=== PATIENT | female | born 1945 | race Caucasian/White ===

== ENCOUNTER 2022-08-23 09:13 | Outpatient (OUT) | payer MEDICARE, OTHER, SELFPAY ==
[2022-08-23 11:02] LABS: Alanine Aminotransferase 30 U/L (14-59); Aspartate Amino Transferase 24 U/L (15-37); Chol HDL Ratio 2.6; Cholesterol 172 mg/dL (<=200); HDL Cholesterol 66 mg/dL (40-60); Triglycerides 64 mg/dL (<=150); VLDL CHOLESTEROL 12.8 mg/dL
== END 2022-08-23 09:14 | disposition home or self-care (01) ==
LOC: LAB 09:19
PROVIDERS: PCP Internal Medicine; Visit Provider Internal Medicine Cardiovascular Disease
DX: I10 Essential (primary) hypertension (principal); I51.89 Other ill-defined heart diseases; E78.5 Hyperlipidemia, unspecified
CPT/HCPCS: 36415; 80061; 84450; 84460

== ENCOUNTER 2022-10-01 08:40 | Outpatient (OUT) | payer MEDICARE, OTHER, SELFPAY ==
[2022-10-01 09:11] LABS: Basophils Percent Auto 0.4 % (0.2-2.0); Eosinophils Absolute Auto 0.1 10^3/uL (0.0-0.7); Eosinophils Percent Auto 1.8 % (0.9-7.0); Hematocrit 44.4 % (36.0-48.0); Hemoglobin 14.3 g/dL (12.0-16.0); Immature Granulocytes Abs Auto 0.01 10^3/uL (0.00-0.03); Immature Granulocytes Pct Auto 0.2 % (0.0-0.5); Mean Corpuscular HGB Conc 32.2 g/dL (29.9-35.2); Mean Corpuscular Hemoglobin 28.7 pg (26.7-34.0); Mean Platelet Volume 10.7 fL (9.5-13.5); Monocytes Absolute Auto 0.3 10^3/uL (0.3-0.8); Monocytes Percent Auto 6.3 % (1.7-12.0); Neutrophils Absolute Auto 3.5 10^3/uL (1.4-6.5); Neutrophils Percent Auto 71.3 % (43.0-75.0); Platelet Count 181 10^3/uL (150-450); Red Blood Count 4.99 10^6/uL (4.20-5.40); Red Cell Distribution Width 13.2 % (11.0-15.0)
[2022-10-01 11:08] LABS: Alanine Aminotransferase 31 U/L (14-59); Albumin Globulin Ratio 1.3; Albumin Level 4.2 g/dL (3.4-5.0); Alkaline Phosphatase 79 U/L (46-116); Anion Gap 11.9; Aspartate Amino Transferase 20 U/L (15-37); BUN Creatinine Ratio 24.4; Bilirubin Total 0.4 mg/dL (0.2-1.0); Calcium 9.7 mg/dL (8.5-10.1); Carbon Dioxide 29.3 mmol/L (21.0-32.0); Chloride 105 mmol/L (98-107); Chol HDL Ratio 2.6; Cholesterol 178 mg/dL (<=200); Estimated GFR (African America >60 (>=60); Estimated GFR (Non-African Ame >60 (>=60); Globulin 3.3 g/dL; Glucose 98 mg/dL (74-106); HDL Cholesterol 68 mg/dL (40-60); Potassium 4.2 mmol/L (3.5-5.1); Sodium 142 mmol/L (136-145); Thyroid Stimulating Hormone 1.243 uIU/mL (0.358-3.740); Total Protein 7.5 g/dL (6.4-8.2); Triglycerides 79 mg/dL (<=150); VLDL CHOLESTEROL 15.8 mg/dL
== END 2022-10-01 08:41 | disposition home or self-care (01) ==
PROVIDERS: PCP Internal Medicine; Visit Provider Internal Medicine
DX: I25.10 Atherosclerotic heart disease of native coronary artery without angina pectoris (principal); Z95.5 Presence of coronary angioplasty implant and graft; I10 Essential (primary) hypertension; E78.5 Hyperlipidemia, unspecified; I69.30 Unspecified sequelae of cerebral infarction
CPT/HCPCS: 36415; 80053; 80061; 84443; 85025

== ENCOUNTER 2023-04-05 09:23 | Outpatient (OUT) | payer MEDICARE, OTHER, SELFPAY ==
[2023-04-05 10:12] LABS: Basophils Percent Auto 0.7 % (0.2-2.0); Eosinophils Absolute Auto 0.1 10^3/uL (0.0-0.7); Hematocrit 46.1 % (36.0-48.0); Hemoglobin 14.6 g/dL (12.0-16.0); Immature Granulocytes Abs Auto 0.02 10^3/uL (0.00-0.03); Immature Granulocytes Pct Auto 0.3 % (0.0-0.5); Lymphocytes Percent Auto 16.5 % (20.5-60.0); Mean Corpuscular HGB Conc 31.7 g/dL (29.9-35.2); Mean Corpuscular Hemoglobin 28.7 pg (26.7-34.0); Mean Corpuscular Volume 90.6 fL (81.0-99.0); Monocytes Absolute Auto 0.4 10^3/uL (0.3-0.8); Monocytes Percent Auto 6.4 % (1.7-12.0); Neutrophils Absolute Auto 4.4 10^3/uL (1.4-6.5); Neutrophils Percent Auto 74.1 % (43.0-75.0); Platelet Count 191 10^3/uL (150-450); Red Blood Count 5.09 10^6/uL (4.20-5.40); Red Cell Distribution Width 13.3 % (11.0-15.0)
[2023-04-05 10:37] LABS: Creatinine Urine Random 122.25 mg/dL (20.00-300.00); Microalbum Creatinine Ratio Ur 25.3 mg/g (0.0-29.9); Microalbumin Urine Random 3.1 mg/dL (<=30.0)
[2023-04-05 10:55] LABS: Alanine Aminotransferase 30 U/L (14-59); Albumin Globulin Ratio 1.1; Albumin Level 4.1 g/dL (3.4-5.0); Alkaline Phosphatase 83 U/L (46-116); Anion Gap 8.2; Aspartate Amino Transferase 21 U/L (15-37); BUN Creatinine Ratio 22.5; Bilirubin Total 0.5 mg/dL (0.2-1.0); Carbon Dioxide 31.5 mmol/L (21.0-32.0); Chloride 102 mmol/L (98-107); Chol HDL Ratio 2.4; Cholesterol 179 mg/dL (<=200); Estimated GFR (African America >60 (>=60); Estimated GFR (Non-African Ame >60 (>=60); Globulin 3.7 g/dL; Glucose 93 mg/dL (74-106); HDL Cholesterol 74 mg/dL (40-60); Potassium 3.7 mmol/L (3.5-5.1); Sodium 138 mmol/L (136-145); Total Protein 7.8 g/dL (6.4-8.2); Triglycerides 94 mg/dL (<=150); VLDL CHOLESTEROL 18.8 mg/dL
== END 2023-04-05 09:24 | disposition home or self-care (01) ==
LOC: LAB 09:25
PROVIDERS: PCP Internal Medicine; Visit Provider Nurse Practitioner Adult Health
DX: I10 Essential (primary) hypertension (principal); E78.2 Mixed hyperlipidemia; Z51.81 Encounter for therapeutic drug level monitoring
CPT/HCPCS: 36415; 80053; 80061; 82043; 82570; 85025

== ENCOUNTER 2023-10-05 09:08 | Outpatient (OUT) | payer MEDICARE, OTHER, SELFPAY ==
[2023-10-05 09:47] LABS: Microalbum Creatinine Ratio Ur 9.2 mg/g (0.0-29.9); Microalbumin Urine Random 1.3 mg/dL (<=30.0)
[2023-10-05 10:02] LABS: Alanine Aminotransferase 36 U/L (14-59); Albumin Globulin Ratio 1.3; Alkaline Phosphatase 77 U/L (46-116); Anion Gap 11.1; Aspartate Amino Transferase 27 U/L (15-37); BUN Creatinine Ratio 22.5; Bilirubin Total 0.6 mg/dL (0.2-1.0); Calcium 10.2 mg/dL (8.5-10.1); Carbon Dioxide 31.2 mmol/L (21.0-32.0); Chloride 105 mmol/L (98-107); Chol HDL Ratio 2.4; Cholesterol 172 mg/dL (<=200); Estimated GFR (African America >60 (>=60); Estimated GFR (Non-African Ame >60 (>=60); Globulin 3.1 g/dL; Glucose 95 mg/dL (74-106); HDL Cholesterol 73 mg/dL (40-60); Potassium 4.3 mmol/L (3.5-5.1); Sodium 143 mmol/L (136-145); Thyroid Stimulating Hormone 0.959 uIU/mL (0.358-3.740); Total Protein 7.1 g/dL (6.4-8.2); Triglycerides 59 mg/dL (<=150); VLDL CHOLESTEROL 11.8 mg/dL
== END 2023-10-05 09:09 | disposition home or self-care (01) ==
LOC: LAB 09:10
PROVIDERS: PCP Internal Medicine; Visit Provider Nurse Practitioner Adult Health
DX: E78.2 Mixed hyperlipidemia (principal); I10 Essential (primary) hypertension; Z79.899 Other long term (current) drug therapy
CPT/HCPCS: 36415; 80053; 80061; 82043; 82570; 84443

== ENCOUNTER 2024-02-05 15:04 | Emergency (ER) | payer MEDICARE, OTHER, SELFPAY ==
[2024-02-05 15:12] VITALS: BP 179/98; PULSE 99; O2SAT 97; BMI 19.8
--- NOTE | 2024-02-05 15:20 | XR_ITS ---
The [address] [address] Patient Name: HETAL BOGGS MRN: [id number] date: 1945 Sex: F Assigned Patient Location: ED.MAIN Current Patient Location: Accession/Order Number: [id number] Exam Date: 02/05/2024 16:00 Report Date: 02/05/2024 17:56 At the request of: MISAEL COOK Procedure: XR chest 1V EXAM: XR chest 1V at 1553 hours HISTORY: cough COMPARISON: None. TECHNIQUE: AP upright portable chest x-ray FINDINGS: The heart is not enlarged and the vasculature is not distended. No acute infiltrate, effusion or pneumothorax is identified. The osseous structures are grossly intact. XR/XR chest 1V IMPRESSION: No acute infiltrate or evidence of cardiac decompensation. Electronically authenticated by: FREDDIE REDD Date: 02/05/2024 17:56
[2024-02-05 15:38] LABS: Influenza Virus A Antigen Negative; Influenza Virus B Antigen Negative; Internal Control Within Normal Limits
[2024-02-05 15:39] LABS: Internal Control Within Normal Limits; SARS-CoV-2 Ag NEGATIVE (NEGATIVE)
--- NOTE | 2024-02-05 15:44 | ED.URI1 ---
HPI - URI/Sore Throat General Chief Complaint: Upper Respiratory Infection Stated Complaint: Upper Respiratory Infection Time Seen by Provider: 02/05/24 15:29 Source: patient Limitations: no limitations History of Present Illness HPI Narrative: 78-year-old female presents for a 5-day history of a cough. It has been mostly nonproductive. She has not had fever or hemoptysis. She feels mildly short of breath as well. Related Data Previous Rx's ?Medication ?Instructions ?Recorded azithromycin 250 mg tablet See Rx Instructions PO .COMPLEX #6 02/05/24 (Zithromax Z-Alen) tabs benzonatate 100 mg capsule 100 mg PO TID PRN cough #20 caps 02/05/24 Allergies Allergy/AdvReac Type Severity Reaction Status Date / Time iodine Allergy Severe Rash Verified 02/05/24 15:17 Review of Systems ROS Narrative A ten point review of systems is negative except as noted above. PFSH PFSH Social History Little interest or pleasure in doing things: not at all Feeling down, depressed, or hopeless: not at all Exam Narrative Exam Narrative: Nurses note and vital signs reviewed and patient is not hypoxic. General: The patient appears in no apparent distress. Patient is resting comfortably on cart. Skin: Warm, dry, no pallor noted. There is no rash noted. Head: Normocephalic, atraumatic Eye: Normal conjunctiva, no drainage Ears, Nose, Mouth, and Throat: oral mucosa is moist. Nares patent. Cardiovascular: Regular Rate and Rhythm Respiratory: Patient is in no distress, no accessory muscle use, lungs are clear to auscultation, no wheezing, rales or rhonchi. Good air movement present. Back: non-tender GI: Soft and nontender Musculoskeletal: The patient has no evidence of calf tenderness, no pitting edema, symmetrical pulses noted bilaterally Neurological: A&O normal speech Psychiatric: Cooperative Constitutional Vital Signs, click to edit/add: Last Vital Signs Pulse 99 H 02/05/24 15:12 Resp 20 02/05/24 15:12 BP 179/98 H 02/05/24 15:12 Pulse Ox 97 02/05/24 15:12 O2 Del Method Room Air 02/05/24 15:12 Course Vital Signs Vital signs: Vital Signs Pulse Rate 99 H 02/05/24 15:12 Respiratory Rate 20 02/05/24 15:12 Blood Pressure 179/98 H 02/05/24 15:12 Pulse Oximetry 97 02/05/24 15:12 Oxygen Delivery Method Room Air 02/05/24 15:12 Pulse Rate 99 H 02/05/24 15:12 Respiratory Rate 20 02/05/24 15:12 Blood Pressure 179/98 H 02/05/24 15:12 Pulse Oximetry 97 02/05/24 15:12 Oxygen Delivery Method Room Air 02/05/24 15:12 MDM - URI/Sore Throat MDM Narrative Medical decision making narrative: COVID, influenza, and chest x-ray are negative. She is treated with Zithromax and Tessalon. Treatment diagnosis and follow-up were discussed with the patient. Differential Diagnosis Differential diagnosis: Likely upper respiratory infection, viral infection, influenza and other (COVID, pneumonia) Lab Data Attestation: I reviewed the patient's lab results. Labs: Lab Results 02/05/24 Range/Units 15:22 Influenza Type A Ag Negative Influenza Type B Ag Negative SARS-CoV-2 Ag (CV2AG) Negative (NEGATIVE) Imaging Data Chest x-ray: My impression: No infiltrates Discharge Plan Discharge Chief Complaint: Upper Respiratory Infection Clinical Impression: Upper respiratory infection Patient Disposition: Home, Self-Care Time of Disposition Decision: 16:45 Condition: Good Mode of Transportation: Private Vehicle Prescriptions / Home Meds: New azithromycin [Zithromax Z-Alen] 250 mg tablet See Rx Instructions .ROUTE .COMPLEX Qty: 6 0RF Rx Instructions: For 250 mg dose pack: take 500 mg today (day 1), then 250 mg for 4 days (days 2-5) benzonatate 100 mg capsule 100 mg PO TID PRN (Reason: cough) Qty: 20 0RF Print Language: Mozambican Instructions: Upper Respiratory Infection (ED) Referrals: AMIE LOCKETT [Primary Care Provider] - 1 week
== END 2024-02-05 17:01 | disposition home or self-care (01) ==
PROVIDERS: Emergency Provider Emergency Medicine; PCP Internal Medicine
DX: J06.9 Acute upper respiratory infection, unspecified (principal); R06.02 Shortness of breath
CPT/HCPCS: 71045; 87804; 87811; 99285

== ENCOUNTER 2024-04-13 08:59 | Outpatient (OUT) | payer MEDICARE, OTHER, SELFPAY ==
--- OUTSIDE RECORDS SUMMARY | 2024-04-13 09:12 | XMS_ITS | CCD ---
Author Organization [facility] Care Team Providers Care Semiconductor Development Technician Name Role Phone Steffi Gomez Unavailable Ricky Kaveh Unavailable DO Dipak Lockett Primary Care Provider DO Dipak Lockett Attending Provider DO Alaina Mcghee Referring Provider Dipak Lockett Unavailable Unavailable Unavailable DO Dipak Lockett Primary Care Provider DO Dipak Lockett Attending Provider DO Alaina Mcghee Referring Provider [phone] MD Arsenio Petty Attending Provider Dipak Lockett Primary Care Unavailable Kailash, Arsenio Admitting Unavailable Arsenio Petty Attending Unavailable Alaina Mcghee Referring Unavailable Dipak Lockett Primary Care Unavailable Dipak Lockett Attending Unavailable Dipak Lockett Admitting Unavailable Dipak Lockett Primary Care Unavailable Petty, Cesar Admitting Unavailable PettyArsenio Attending Unavailable Alaina Mcghee Referring Unavailable Dipak Lockett Admitting Unavailable Dipak Lockett Primary Care Unavailable Dipak Lockett Attending Unavailable Dr. Dipak Lockett Primary Care Dallin Bustamante Attending Unavailable Dr. Dipak Lockett Primary Care Arsenio Deal Attending Unavailable Kailash, Arsenio Referring Unavailable Dallin Mcghee Attending Unavailable Dr. Dipak Lockett Primary Care Dr. Dipak Morse Primary Care Kevin Lockett Dr. Dipak Blayne Primary Care Arsenio Deal Attending Unavailable Levy, Dr. Dipak Cisneros Primary Care Dallin Bustamante Attending Unavailable [facility], DR BLOCK Primary Care Unavailable LEVY, DR HOLLOWAY Attending Unavailable LEVY, DR HOLLOWAY Consulting Unavailable LEVY, DR HOLLOWAY Admitting Unavailable Dipak Lockett DO Primary Care Provider [phone] Dipak Lockett DO Unavailable Dipak Lockett DO Primary Care Provider Arsenio Petty MD Unavailable ARSENIO PETTY Attending Unavailable DIPAK LOCKETT Primary Care Unavailable ARSENIO PETTY Attending Unavailable ARSENIO PETTY Referring Unavailable DIPAK LOCKETT Primary Care Unavailable ARSENIO PETTY Referring Unavailable DIPAK LOCKETT Primary Care Unavailable ARSENIO PETTY Attending Unavailable ARSENIO PETTY Attending Unavailable ARSENIO PETTY Referring Unavailable DIPAK LOCKETT Primary Care Unavailable DIPAK LOCKETT Attending Unavailable DIPAK LOCKETT Referring Unavailable MORRO CROOK Attending Unavailable MORRO CROOK Referring Unavailable Allergies Allergy Classification Reported Allergen(s) Allergy Type Date of Onset Reaction(s) Facility (3 sources) Contrast media Propensity to adverse reactions [facility] [employer] Other (3 sources) Sulfamethoxazole / Trimethoprim Drug Allergy [facility] [employer] [facility] Other (7 sources) Iodine; Translations: [iodine] Drug Allergy 05-22-[address] [facility] (12 sources) Iodinated Contrast Media; Translations: [Iodinated Contrast Media] Allergy to substance 05-22-19 [facility] (3 sources) Iodine; Translations: [Iodine Tincture SWAB] Drug Allergy [facility] 250 DO Work Phone: (1 source) Iodine and Iodide Containing Products Drug allergy (disorder) [facility] (5 sources) Povidone-Iodine; Translations: [POVIDONE-IODINE] Drug Allergy 02-02-20 Unknown [facility] (3 sources) atorvastatin Drug Allergy 09-28-19 [facility] (3 sources) Simvastatin Allergy to substance 09-28-19 [facility] Medications Current Medications Medication Drug Class(es) Dates Sig (Normalized) Sig (Original) aspirin 81 mg oral tablet (12 sources) Platelet Aggregation Inhibitor, Nonsteroidal Anti-inflammatory Drug Start: 06-04-2022 take 81 mg by mouth once daily Aspirin Active 81 MG PO Daily June 04, 2022 12:00am take 1 tablet by mouth once salud y aspirin 81 mg EC tablet Take 1 tablet (81 mg) by mouth once daily. Active azithromycin 250 mg oral tablet (1 source) Macrolide Antimicrobial Start: 01-14-2021 Calcium Carbonate (6 sources) take 2 tablets by mouth every twenty-four hours Tums 500 MG 2 tablets Orally Once a day PRN Not-Taking Caltrate 600 150 0 (600 Ca) MG as directed Orally Active take 2 tablets by mo uth every twenty-four hours calcium carbonate 1500 mg / cholecalciferol 800 unt chewable tablet (2 sources) Vitamin D Start: 06-04-2022 take 1 tablet by mouth twice daily Calcium Carbonate-Vitamin D3 (Caltrate 600 Plus D) 600 mg-20 mcg (800 unit) Tablet,Chewable Active 1 TAB PO Twice daily June 04, 2022 12:00am Calcium Carbonate / Vitamin D (3 sources) Calcium Carbonate-Vitamin D (CALTRATE 600+D PO) Daily. 0 Active Calcium Carbonate / vitamin D3 (4 sources) take 1 tablet by mouth once in the morning calcium carbonate/vitamin D3 (CALTRATE 600 PLUS D ORAL) Take 1 tablet by mouth early in the morning.. Active take 1 tablet by franky once in the morning calcium carbonate/vitamin D3 (CALTRATE 6 00 PLUS D ORAL) Take 1 tablet by mouth early in the morning.. 0 Active diphenhydrAMINE hydrochloride 25 mg oral capsule (4 sources) Histamine-1 Receptor Antagonist Start: 05-25-2022 take 1 capsule by mouth three times daily Diphenhydramine Hcl (Allergy (Diphenhydramine)) 25 mg capsule Active 25 MG PO Three times daily June 04, 2022 12:00am docosahexaenoic acid 120 mg / eicosapentaenoic acid 180 mg oral capsule (6 sources) take 1 capsule by mouth in the morning omega-3 (Fish Oil) 1000 MG capsule Take 1 capsule by mouth in the morning. 0 Active famotidine 20 mg oral tablet (4 sources) Histamine-2 Receptor Antagonist Start: 06-04-2022 take 20 mg by mouth once daily in the morning Famotidine Active 20 MG PO Every morning June 04, 2022 12:00am Start: 05-25-2022 take 1 tablet by franky th twice daily Famotidine 20 MG Oral Tablet one tablet twice daily for 2 days and the last dose the morning of the procedure Quantity: 5 Refills: 0 Ordered: 25-May-2022 Arsenio Petty MD Start : 25-May-2022 Active Fish Oils (3 sources) take 1 capsule by mo uth twice daily Fish Oil 500 MG 1 capsule Orally Twice a day Active losartan potassium 50 mg oral tablet (15 sources) Angiotensin 2 Receptor Surendra Start: 08-23-2023 End: 08-22-2024 take 1 tablet by mouth twice daily losartan (Cozaar) 50 mg tablet Indications: Atherosclerotic heart disease of [place] coronary artery without angina pectoris Take 1 tablet (50 mg) by mouth 2 times a day. 180 tablet 3 08/23/2023 08/22/2024 Active Start: 08-19-2023 End: 08-23-2023 take 1 tablet by mouth once daily losartan (Cozaar) 50 mg tablet Indications: Atherosclerotic heart disease of [place] coronary artery without angina pectoris TAKE 1 TABLET BY MOUTH EVERY DAY 90 tablet 3 08/19/2023 08/23/2023 Discontinued (Reorder) Start: 05-27-2022 losartan (Coza ar) 50 MG tablet Take by mouth Daily. 0 05/27/2022 Active Start: 04-14-2021 take 1 tablet by franky th every twenty-four hours Losartan Potassium 25 MG 1 tablet Orally Once a day for 30 day(s) Mar, Active 24 hr metoprolol succinate 25 mg extended release oral tablet (15 sources) beta-Adrenergic Surendra Start: 08-18-2023 End: 08-17-2024 take 1 tablet by mouth once daily metoprolol succinate XL (Toprol-XL) 25 mg 24 hr tablet Indications: Essential hypertension, benign Take 1 tablet (25 mg) by mouth once daily. Do not crush or chew. 90 tablet 3 08/18/2023 08/17/2024 Active Start: 07-22-2023 End: 08-18-2023 take 2 tablets by mouth once daily metoprolol succinate XL (Toprol-XL) 25 mg 24 hr tablet Indications: Abnormal result of other cardiovascular function study Take 2 tablets (50 mg) by mouth once daily. 180 tablet 3 07/22/2023 08/18/2023 Discontinued (Dose adjustment) Start: 05-25-2022 End: 08-18-2023 take 50 mg by mouth once daily in the morning Metoprolol Succinate Active 50 MG PO Every morning June 04, 2022 12:00am Start: 05-25-2022 End: 02-02-2023 take 1 tablet by mouth once daily Metoprolol Succinate ER 25 MG Oral Tablet Extended Release 24 Hour take 1 tablet by mouth once daily Quantity: 90 Refills: 3 Ordered: 23-Jul-2022 Arsenio Petty MD Start : 25-May-2022 Active dose decreased Multiple Vitamin (3 sources) take 1 tablet by franky th once daily Multiple Vitamin 1 tablet Orally Once a day Active MULTIPLE VITAMIN PO (3 sources) MULTIPLE VITAMIN PO Daily. 0 Active Multivitamin preparation (2 sources) Start: 06-04-2022 take 1 tablet by mouth once daily Multivitamin Active 1 TAB PO Daily June 04, 2022 12:00am multivitamin tablet (4 sources) take 1 tablet by mouth once daily multivitamin tablet Take 1 tablet by mouth once daily. Active take 1 tablet by mouth once salud y multivitamin tablet Take 1 tablet by mouth once daily. 0 Active naproxen sodium 220 mg oral tablet (3 sources) Nonsteroidal Anti-inflammatory Drug take 1 tablet by mouth every twelve hours as needed Aleve 220 MG 1 tablet Orally Every 12 hrs as needed PRN Active nitroglycerin 0.4 mg sublingual tablet (9 sources) Nitrate Vasodilator Start: 023 Nitroglycerin Active 0.4 MG SUBLINGUAL Q5M June 08, 2022 12:00am do not exceed 3 doses per episode Nitroglycerin 0. 4 MG Sublingual Tablet Sublingual TAKE DIRECTED. Quantity: 25 Refills: 11 Ordered: 23-Jul-2022 DO Active olopatadine 2 mg/ml ophthalmic solution (1 source) Histamine-1 Receptor Inhibitor Start: 01-14-2021 [place] 6-Spb-Kig-Fish Oil (Fish Oil) 1,000 mg (120 mg-180 mg) Capsule (2 sources) Start: 06-04-2022 take 1 capsule by mouth once daily [place] 6-Ino-Trt-Fish Oil (Fish Oil) 1,000 mg (120 mg-180 mg) Capsule Active 1 CAP PO Daily June 04, 2022 12:00am omega 6-tqh-lzx-fish oil (Fish OiL) 1,000 mg (120 mg-180 mg) capsule (4 sources) take 1 capsule by mouth in the morning omega 1-gke-wmw-fish oil (Fish OiL) 1,000 mg (120 mg-180 mg) capsule Take 1 capsule (1,000 mg) by mouth early in the morning.. Active take 1 capsule by mouth in the m orning omega 0-vin-mdz-fish oil (Fish OiL) 1,000 mg (120 mg-180 mg) capsule Take 1 capsule (1,000 mg) by mouth early in the morning.. 0 Active predniSONE 20 mg oral tablet (5 sources) Start: 06-04-2022 take 20 mg by mouth once daily in the morning Prednisone Active 20 MG PO Every morning June 04, 2022 12:00am Start: 05-25-2022 predniSONE 20 MG Oral Tablet one tablet three times daily for 2 days and then the morning of the procedure. Quantity: 7 Refills: 0 Ordered: 25-May-2022 Arsenio Petty MD Start : 25-May-2022 Active Start: 01-14-2021 take 1 tablet by franky th every twelve hours rosuvastatin calcium 40 mg oral tablet (12 sources) HMG-CoA Reductase Inhibitor Start: 03-31-2023 take 1 tablet by mouth at bedtime rosuvastatin (Crestor) 40 MG tablet Indications: Mixed hyperlipidemia (CMS/HCC) TAKE 1 TABLET BY MOUTH AT BEDTIME 90 tablet 3 03/31/2023 Active Start: 06-04-2022 take 20 mg by mouth once daily in the morning Rosuvastatin Active 20 MG PO Every morning June 04, 2022 12:00am ticagrelor 60 mg oral tablet (9 sources) Start: 07-29-2023 End: 07-28-2024 take 1 tablet by mouth twice daily ticagrelor (Brilinta) 60 mg tablet Indications: S/P PTCA (percutaneous transluminal coronary angioplasty) Take 1 tablet (60 mg) by mouth 2 times a day. 180 tablet 3 07/29/2023 07/28/2024 Active Start: 06-08-2022 take 1 tablet by franky th twice daily Ticagrelor (Brilinta) 90 mg tablet Active 90 MG PO Twice daily 180 90 June 08, 2022 12:00am Completed/Discontinued Medications Medication Drug Class(es) Dates Sig (Normalized) Sig (Original) atorvastatin 10 mg oral tablet (3 sources) HMG-CoA Reductase Inhibitor take 1 tablet by mouth every twenty-four hours Atorvastatin Calcium 10 MG 1 tablet Orally Once a day for 90 day(s) Not-Taking Caltrate 600 Plus-Vit D TABS (3 sources) Caltrate 600 Plus-Vit D TABS TAKE 1 TABLET DAILY DIRECTED. Quantity: 0 Refills: 0 Ordered: 25-May-2022 DO Active diclofenac sodium 0.01 mg/mg topical gel (3 sources) Nonsteroidal Anti-inflammatory Drug Diclofenac Sodium 1 % 2 pumps to affected area Transdermal Twice a day for 30 day(s) Not-Taking Multi Vitamin Oral Tablet (3 sources) take 1 tablet by franky th once daily Multi Vitamin Oral Tablet TAKE 1 TABLET DAILY. Quantity: 0 Refills: 0 Ordered: 25-May-2022 DO Active Problems Active Problems Problem Classification Problem Date Documented Da te Episodic/Chronic Acute cerebrovascular disease (6 sources) Cerebral infarction, unspecified; Translations: [Cerebrovascular accident] Onset: 07-01-2022 09-21-2022 Chronic Coronary atherosclerosis and other heart disease (20 sources) Coronary arteriosclerosis; Translations: [Atherosclerotic heart disease of [place] coronary artery without angina pectoris] Onset: 05-21-2022 Resolved: 10-04-2022 06-08-2022 Chronic Disorders of lipid metabolism (20 sources) Mixed hyperlipidemia; Translations: [Mixed hyperlipidemia] Onset: 07-01-2022 06-08-2022 Chronic Essential hypertension (20 sources) Essential hypertension; Translations: [Essential (primary) hypertension] Onset: 04-14-2021 Resolved: 04-14-2021 Chronic Late effects of cerebrovascular disease (5 sources) Sequela of lacunar stroke; Translations: [Unspecified sequelae of cerebral infarction] Onset: 09-30-2022 09-30-2022 Chronic Menopausal disorders (3 sources) Menopausal and postmenopausal disorders; Translations: [Unspecified menopausal and perimenopausal disorder] Chronic Nonmalignant breast conditions (3 sources) Fibrocystic disease of breast; Translations: [Diffuse cystic mastopathy of unspecified breast] Onset: 09-30-2022 09-30-2022 Chronic Other aftercare (2 sources) Patient encounter status; Translations: [Other watermaster (current) drug therapy] 04-13-2023 Episodic Other and ill-defined heart disease (7 sources) Heart disease; Translations: [Other ill-defined heart diseases] Onset: 02-01-2023 02-01-2023 Chronic Other hereditary and degenerative nervous system conditions (5 sources) Cerebral atrophy; Translations: [Degenerative disease of nervous system, unspecified] Onset: 09-21-2022 09-21-2022 Chronic Other nervous system disorders (3 sources) Carpal tunnel syndrome; Translations: [Carpal tunnel syndrome, left upper limb] Chronic Residual codes; unclassified (2 sources) Body mass index (BMI) 21.0-21.9, adult; Translations: [Body mass index (BMI) 21.0-21.9, adult] Onset: 08-18-2023 Episodic Residual codes; unclassified (2 sources) Other specified health status; Translations: [Other specified health status] Onset: 08-18-2023 Episodic Unclassified (1 source) Encounter for preprocedural laboratory examination; Translations: [Encounter for preprocedural laboratory examination] Onset: 06-04-2022 Past or Other Problems Problem Classification Problem Date Documented Da te Episodic/Chronic Blindness and vision defects (1 source) Unspecified visual disturbance Onset: 04-14-2021 Resolved: 04-14-2021 Episodic Coronary atherosclerosis and other heart disease (14 sources) Patient post percutaneous transluminal coronary angioplasty; Translations: [Percutaneous transluminal coronary angioplasty status] Onset: 09-21-2022 02-02-2023 Episodic Immunizations and screening for infectious disease (1 source) Contact with and (suspected) exposure to other viral communicable diseases Onset: 01-14-2021 Resolved: 01-14-2021 Episodic Inflammation; infection of eye (except that caused by tuberculosis or sexually transmitteddisease) (1 source) Acute atopic conjunctivitis, bilateral Onset: 01-14-2021 Resolved: 01-14-2021 Episodic Nonspecific chest pain (4 sources) Atypical chest pain; Translations: [Other chest pain] Onset: 05-21-2022 Resolved: 07-23-2022 Episodic Other circulatory disease (3 sources) Elevated blood-pressure reading without diagnosis of hypertension; Translations: [Elevated blood-pressure reading, without diagnosis of hypertension] Episodic Other circulatory disease (1 source) Other specified symptoms and signs involving the circulatory and respiratory systems Onset: 04-14-2021 Resolved: 04-14-2021 Episodic Other circulatory disease (3 sources) Ischemia; Translations: [Other disorder of circulatory system] Onset: 09-30-2022 Resolved: 10-04-2022 10-04-2022 Episodic Other nervous system disorders (2 sources) Abnormal gait; Translations: [Unsteadiness on feet] Episodic Other nervous system disorders (1 source) Unsteadiness on feet Onset: 04-14-2021 Resolved: 04-14-2021 Episodic Other screening for suspected conditions (not mental disorders or infectious disease) (16 sources) Thallium stress test abnormal; Translations: [Other nonspecific abnormal results of function study of cardiovascular system] Onset: 05-21-2022 Resolved: 05-25-2022 Episodic Other skin disorders (3 sources) Ingrowing nail; Translations: [Ingrowing nail] Episodic Residual codes; unclassified (8 sources) Body mass index 20-24 - normal; Translations: [Body Mass Index between 19-24, adult] Onset: 08-18-2023 08-18-2023 Episodic Residual codes; unclassified (5 sources) Never smoked tobacco; Translations: [Other specified health status] Onset: 08-18-2023 08-18-2023 Episodic Unclassified (3 sources) Never smoked tobacco; Translations: [Never a smoker] Unclassified (4 sources) Onset: 02-02-2023 Resolved: 08-18-2023 02-02-2023 Viral infection (1 source) COVID-19 Onset: 01-14-2021 Resolved: 01-14-2021 Results Test Name Value Interpretation Reference Range Facility BI MAMMOGRAM SCREENING TOMOS YNTHESIS BILATERALon 01-03-2024 BI MAMMOGRAM SCREENING TOMOSYNTHESIS BILATERAL This is a summary report. The complete report is available in the patient's medical record. If you cannot access the medical record, please contact the sending organization for a detailed fax or copy. BI MAMMOGRAM SCREENING TOMOSYNTHESIS BILATERAL : 01/03/2024 10:29 AM CLINICAL HISTORY: breast cancer screening. COMPARISONS: . TECHNIQUE: Full field routine digital mammograms were obtained bilaterally. 3D breast tomosynthesis was also performed. CAD analysis was performed and used in the interpretation. FINDINGS: Both breasts remain extremely dense with stable asymmetry. There are no developing masses, suspicious microcalcifications, or areas of architectural distortion identified on today's examination. There is no significant change when compared to the prior examinations identified, given differences in technique and positioning. IMPRESSION: BI-RADS 2: BENIGN FINDINGS. DENSITY: The breasts are extremely dense, which lowers the sensitivity of mammography Board Certified Radiologists. Accredited by the ACR and FDA. MAMMOGRAPHY IS VERY IMPORTANT TO YOUR HEALTH. THE ETHIOPIAN CANC[employer] SOCIETY GUIDELINES RECOMMEND THAT WOMEN 40 YEARS OF AGE AND OLDER SHOULD HAVE A MAMMOGRAM EVERY YEAR. A REMINDER LETTER WILL BE SENT AT THE APPROPRIATE TIME. ELECTRONICALLY SIGNED BY: Gabriela Dietz DO Normal Not Available DEXA BONE DENSITYon 01-03-20 DEXA BONE DENSITY Examination: DEXA SHAHID NE DENSITY Clinical History: postmenopausal COMPARISON: 11/16/2021. Technique: Bone density study was performed. T score values for the lumbar spine, right femoral neck and left femoral neck were obtained. Findings: Value for the lumbar spine from L1-L4 is -1.4. Value for the right femoral neck is -1.2. Value for the left femoral neck is -1.2. Findings are compatible with mild osteopenia with mild increased fracture risk. No evidence of osteoporosis. Study was compared to the prior exam dated 11/16/2021 which demonstrates similar findings. IMPRESSION: Impression: Findings compatible with mild osteopenia with mild increased fracture risk. Findings are similar to the prior exam. ELECTRONICALLY SIGNED BY: Michael Montero M.D. Normal Not Available Tobacco Screening.on 023 Adult depression screening assessment No [facility] 250 DO Work Phone: Fall risk assessment a) No falls within the last year [facility] DO Work Phone: Tobacco use status [facility] b) No [facility] 250 DO Work Phone: MICROALBUMIN, RAND URon 04-2 mALB 1.7 mg/L Normal <=30.0 [facility] Comment on above: Performed By: #### M ALBR #### [facility] [address] [place] [address] Dr. Vinayak Villasenor PROF CHEM 8 (BAS METB)on Anion gap [Moles/Vol] 11.7 mmol/L Normal Th [facility] Comment on above: Performed By: #### B MP #### [facility] [address] [place] [address] Dr. Vinayak Villasenor Calcium [Mass/Vol] 10.0 mg/dL Normal 8.5-10.1 [facility] Comment on above: Performed By: #### B MP #### [facility] [address] [place] [address] Dr. Vinayak Villasenor Chloride [Moles/Vol] 107 mmol/L Normal 98-107 [facility] Comment on above: Performed By: #### B MP #### [facility] [address] [place] [address] Dr. Vinayak Villasenor CO2 [Moles/Vol] 29.7 mmol/L Normal 21.0-32.0 [facility] Comment on above: Performed By: #### B MP #### [facility] [address] [place] [address] Dr. Vinayak Villasenor Creatinine [Mass/Vol] 0.82 mg/dL Normal 0.55-1.02 [facility] Comment on above: Performed By: #### B MP #### [facility] [address] [place] [address] Dr. Vinayak Villasenor EGFR-AF ETHIOPIAN >60 Normal >=60 [facility] Comment on above: Performed By: #### B MP #### [facility] [address] [place] [address] Dr. Vinayak Villasenor EGFR-NON AF ETHIOPIAN >60 Normal >=60 [facility] Comment on above: Performed By: #### B MP #### [facility] [address] [place] [address] Dr. Vinayak Villasenor Glucose [Mass/Vol] 87 mg/dL Normal 74-106 [facility] Comment on above: Performed By: #### B MP #### [facility] [address] [address] [address] Vinayak Villasenor Potassium [Moles/Vol] 4.4 mmol/L Normal 3.5-5.1 [facility] Comment on above: Performed By: #### B MP #### [facility] [address] [address] [address] Vinayak Villasenor Sodium [Moles/Vol] 144 mmol/L Normal 136-145 [facility] Comment on above: Performed By: #### B MP #### [facility] [address] [address] [address] Vinayak Villasenor Urea nitrogen [Mass/Vol] 21.0 mg/dL Critically high 7.0-18.0 [facility] Comment on above: Performed By: #### B MP #### [facility] [address] [place] [address] Dr. Vinayak Villasenor Urea nitrogen/Creatinine [Mass ratio] 25.6 mg/mg Normal [facility] Comment on above: Performed By: #### B MP #### [facility] [address] [place] [address] Dr. Vinayak Villasenor UA RANDOMon 06-25-2022 Bilirubin Ql (U) Negative Normal NEGATIVE [facility] Comment on above: Performed By: #### U A #### [facility] [address] [place] [address] Dr. Vinayak Villasenor Clarity (U) CLEAR Normal CLEAR [facility] Comment on above: Performed By: #### U A #### [facility] [address] [address] [address] Vinayak Villasenor Color (U) LT. YELLOW Normal YELLOW [facility] Comment on above: Performed By: #### U A #### [facility] [address] [place] [address] Dr. Vinayak Villasenor Glucose Ql (U) Negative Normal NEGATIVE [facility] Comment on above: Performed By: #### U A #### [facility] [address] [place] [address] Dr. Vinayak Villasenor Hemoglobin Ql (U) TRACE-INTACT Abnormal NEGATIVE [facility] Comment on above: Performed By: #### U A #### [facility] [address] [place] [address] Dr. Vinayak Villasenor Ketones Ql (U) Negative Normal NEGATIVE [facility] Comment on above: Performed By: #### U A #### [facility] [address] [place] [address] Dr. Vinayak Villasenor LEUKOCYTES SMALL Abnormal NEGATIVE [facility] Comment on above: Performed By: #### U A #### [facility] [address] [place] [address] Dr. Vinayak Villasenor Nitrite Ql (U) Negative Normal NEGATIVE [facility] Comment on above: Performed By: #### U A #### [facility] [address] [place] [address] Dr. Vinayak Villasenor pH (U) 5.5 [pH] Normal 5-9 [facility] Comment on above: Performed By: #### U A #### [facility] [address] [place] [address] Dr. Vinayak Villasenor SPEC GRAVITY 1.025 Normal 1.005-<=1. 025 [facility] Comment on above: Performed By: #### U A #### [facility] [address] [place] [address] Dr. Vinayak Villasenor UA PROTEIN Negative Normal NEGATIVE/ TRACE [facility] Comment on above: Performed By: #### U A #### [facility] [address] [place] [address] Dr. Vinayak Villasenor Urobilinogen Qn (U) 0.2 {Lizett'U}/dL Normal 0.2 - 1. 0 [facility] Comment on above: Performed By: #### U A #### [facility] [address] [place] [address] Dr. Vinayak Villasenor ECG 12 lead ECGon 06-08-2022 ECG 12 lead ECG [facility] [address] [place] [address] Electrocardiograph Report Signed Patient: Laquita Boggs MR#: [id number] 5 : 1945 Acct:[id number] Age/Sex: 76 / F ADM Date: 06/08/22 Loc: Room: Type: [facility] Attending Dr: Arsenio Petty MD Ordering Provider: Alaina Mcghee DO Date of Service: 06/08/2201/20/1603 ECG/ECG 12 lead ECG: Post Angioplasty Procedure Copies to: Test Reason : Blood Pressure : / mmHG Vent. Rate : 053 BPM Atrial Rate : 053 BPM P-R Int : 164 ms QRS Dur : 088 ms QT Int : 450 ms P-R-T Axes : 076 -05 092 degrees QTc Int : 422 ms Sinus bradycardia with sinus arrhythmia Possible Anterolateral infarct , age undetermined Abnormal ECG Compared to , the right precordial t wave inversion has rresolved Confirmed by KAVEH MAN MD ([id number]) on 06/09/2022 9:36:00 AM Referred By: [facility] Electronically Signed By:KAVEH MAN MD Transcribed By: MUS Signed By Kaveh Man MD 09 Normal [facility] Activated partial thrombopla stin time (aPTT) in platelet poor plasma by coagulation aOrdered By: Arsenio Petty on 06-04-2022 aPTT Coag (PPP) [Time] 28.3 s 25.1-36.5 [facility] Basophils Auto (Bld) [#/Vol] Ordered By: Arsenio Petty on 06-04-2022 Basophils (Bld) [#/Vol] 0.0 10*3/uL 0.0-0.2 [facility] Basophils/100 WBC Auto (Bld) Ordered By: Arsenio Petty on 06-04-2022 Basophils/100 WBC (Bld) 0.6 % . [facility] Blood Urea Nitrogenon 2022 Urea nitrogen [Mass/Vol] 16 mg/dL Normal 09-21 [facility] Comment on above: Performed By: #### P P, LIPID, LYTES, CBC, CREAT, BUN #### [facility] [address] [place] [address] Carbon dioxide, total [Moles /volume] in Serum or PlasmaOrdered By: Arsenio Petty on 06-04-2022 CO2 [Moles/Vol] 30.0 mmol/L 21.0-31.0 [facility] Chloride [Moles/volume] in S el or PlasmaOrdered By: Arsenio Petty on 06-04-2022 Chloride [Moles/Vol] 106 mmol/L 98-107 [facility] Cholesterol [Mass/volume] in Serum or PlasmaOrdered By: Arsenio Petty on 06-04-2022 Cholesterol [Mass/Vol] 188 mg/dL 140-200 [facility] Comment on above: Chol less than 200 m g/dl low riskChol 201-239 mg/dl borderline riskChol 240 mg/dl and greater high risk Cholesterol in LDL Calc [Mas s/Vol]Ordered By: Arsenio Petty on 06-04-2022 Cholesterol in LDL [Mass/Vol] 110 mg/dL 0-100 [facility] Comment on above: LDL ATP III CLASSIFI CATIONLDL less than 100 mg/dL OptimalLDL 100-129 mg/dL Near or above optimalLDL 130-159 mg/dL Borderline highLDL 160-189 mg/dL HighLDL greater than 189 mg/dL Very high Cholesterol in VLDL Calc [Ma ss/Vol]Ordered By: Arsenio Petty on 06-04-2022 Cholesterol in VLDL [Mass/Vol] 17 mg/dL [facility] Coagulation Profileon 2022 aPTT Coag (Bld) [Time] 28.3 s Normal 25.1-36.5 [facility] Comment on above: Result Comment: PERF ORMED BY: [place] [address] PATHOLOGIST ELECTRONIC IMAGING SYSTEM OPERATOR LAURA WEST M.D. Performed By: #### P P, LIPID, LYTES, CBC, CREAT, BUN #### [address] INR Coag (PPP) [Relative time] 0.9 {INR} Normal [facility] Comment on above: Result Comment: INR Therapeutic Range A) Pre- and Peroperative OAT started two weeks before surgery. NOT HIP SURGERY: 1.5 - 2.5 HIP SURGERY: 2 - 3 B) Primary and secondary prevention of venous THROMBOSIS: 2 - 3 C) Active venous thrombosis, pulmonary embolism and prevention of recurrent venous thrombosis: 2 - 3 D) Prevention of arterial thromboembolism including patients with mechanical heart valves: 3 - 4.5 Performed By: #### P P, LIPID, LYTES, CBC, CREAT, BUN #### [address] PT Coag (PPP) [Time] 10.6 s Normal 9.0-12.9 [facility] Comment on above: Performed By: #### P P, LIPID, LYTES, CBC, CREAT, BUN #### [address] Complete Blood Count Auto Di ffon 06-04-2022 Basophils (Bld) [#/Vol] 0.0 10*3/uL Normal 0.0-0.2 [facility] Comment on above: Result Comment: PERF ORMED BY: [place] [address] PATHOLOGIST ELECTRONIC IMAGING SYSTEM OPERATOR LAURA WEST M.D. Performed By: #### P P, LIPID, LYTES, CBC, CREAT, BUN #### [address] Basophils/100 WBC (Bld) 0.6 % Normal . [facility] Comment on above: Performed By: #### P P, LIPID, LYTES, CBC, CREAT, BUN #### [address] Eosinophils (Bld) [#/Vol] 0.1 10*3/uL Normal 0.0-0.45 [facility] Comment on above: Performed By: #### P P, LIPID, LYTES, CBC, CREAT, BUN #### [address] Eosinophils/100 WBC (Bld) 3.1 % Normal . [facility] Comment on above: Performed By: #### P P, LIPID, LYTES, CBC, CREAT, BUN #### [address] [place] [address] [place] Erythrocyte distribution width (RBC) [Ratio] 13.5 % Normal 11.9-15.3 [facility] Comment on above: Performed By: #### P P, LIPID, LYTES, CBC, CREAT, BUN #### [address] Hematocrit (Bld) [Volume fraction] 42.5 % Normal 34.0-46.4 [facility] Comment on above: Performed By: #### P P, LIPID, LYTES, CBC, CREAT, BUN #### [address] Hemoglobin (Bld) [Mass/Vol] 14.2 g/dL Normal 11.8-15.4 [facility] Comment on above: Performed By: #### P P, LIPID, LYTES, CBC, CREAT, BUN #### [address] Lymphocytes (Bld) [#/Vol] 0.9 10*3/uL Low 1.00-4.8 [facility] Comment on above: Performed By: #### P P, LIPID, LYTES, CBC, CREAT, BUN #### [address] Lymphocytes/100 WBC (Bld) 23.0 % Normal . [facility] Comment on above: Performed By: #### P P, LIPID, LYTES, CBC, CREAT, BUN #### [address] MCH (RBC) [Entitic mass] 28.8 pg Normal 24.7-34.3 [facility] Comment on above: Performed By: #### P P, LIPID, LYTES, CBC, CREAT, BUN #### [address] MCV (RBC) [Entitic vol] 86.3 fL Normal 80-100 [facility] Comment on above: Performed By: #### P P, LIPID, LYTES, CBC, CREAT, BUN #### [facility] [address] Mean Corpuscular HGB Conc 33.4 g/dL Normal 32.0-35.0 [facility] Comment on above: Performed By: #### P P, LIPID, LYTES, CBC, CREAT, BUN #### [address] Monocytes (Bld) [#/Vol] 0.3 10*3/uL Normal 0.0-0.8 [facility] Comment on above: Performed By: #### P P, LIPID, LYTES, CBC, CREAT, BUN #### [address] Monocytes/100 WBC (Bld) 7.6 % Normal . [facility] Comment on above: Performed By: #### P P, LIPID, LYTES, CBC, CREAT, BUN #### [address] Neutrophils (Bld) [#/Vol] 2.7 10*3/uL Normal 1.8-7.7 [facility] Comment on above: Performed By: #### P P, LIPID, LYTES, CBC, CREAT, BUN #### [address] Neutrophils/100 WBC (Bld) 65.7 % Normal . [facility] Comment on above: Performed By: #### P P, LIPID, LYTES, CBC, CREAT, BUN #### [address] NRBC% 0.1 /100{WBC} Normal 0-0.5 [facility] Comment on above: Performed By: #### P P, LIPID, LYTES, CBC, CREAT, BUN #### [address] Platelet mean volume (Bld) [Entitic vol] 9.0 fL Normal 6.3-10.7 [facility] Comment on above: Performed By: #### P P, LIPID, LYTES, CBC, CREAT, BUN #### [address] [place] [address] [place] Platelets (Bld) [#/Vol] 161 10*3/uL Normal 150-450 [facility] Comment on above: Performed By: #### P P, LIPID, LYTES, CBC, CREAT, BUN #### [address] RBC (Bld) [#/Vol] 4.93 10*6/uL Normal 3.60-5.00 [facility] Comment on above: Performed By: #### P P, LIPID, LYTES, CBC, CREAT, BUN #### [address] WBC (Bld) [#/Vol] 4.1 10*3/uL Normal 3.8-11.6 [facility] Comment on above: Performed By: #### P P, LIPID, LYTES, CBC, CREAT, BUN #### [address] Creatinineon 06-04-2022 Creatinine [Mass/Vol] 0.84 mg/dL Normal 0.60-1.20 [facility] Comment on above: Performed By: #### P P, LIPID, LYTES, CBC, CREAT, BUN #### [address] GFR/1.73 sq M.predicted MDRD (S/P/Bld) [Vol rate/Area] mL/min/{1.73_m2} [facility] Comment on above: Performed By: #### P P, LIPID, LYTES, CBC, CREAT, BUN #### [address] Creatinine [Mass/volume] in Serum or PlasmaOrdered By: Arsenio Petty on 06-04-2022 Creatinine [Mass/Vol] 0.84 mg/dL 0.60-1.20 [facility] ECG 12 lead ECGon 06-04-2022 ECG 12 lead ECG [facility] [address] [place] [address] Electrocardiograph Report Signed Patient: Laquita Boggs MR#: [id number] 5 : 1945 Acct:[id number] Age/Sex: 76 / F ADM Date: 06/04/22 Loc: PS Room: Type: [facility] Attending Dr: Arsenio Petty MD Ordering Provider: Arsenio Petty MD, [facility] Date of Service: 06/04/2209/19/836 ECG/ECG 12 lead ECG: [facility] Copies to: Test Reason : Blood Pressure : / mmHG Vent. Rate : 067 BPM Atrial Rate : 067 BPM P-R Int : 174 ms QRS Dur : 084 ms QT Int : 430 ms P-R-T Axes : 070 050 082 degrees QTc Int : 454 ms Normal sinus rhythm with sinus arrhythmia Nonspecific T wave abnormality Abnormal ECG When compared with ECG of 09-DEC-2014 11:44, No significant change was found Confirmed by ARTURO CASH [facility], HARRISON ([id number]) on 06/04/2022 12:21:45 PM Referred By: KAILASH Electronically Signed By:HARRISON MORRIS MD [facility] Transcribed By: MUS Signed By Dallin Morris MD 06/04/22 1221 Normal [facility] Electrolyteson 06-04-2022 Anion gap [Moles/Vol] 10.4 mmol/L Normal 6.0-15.0 [facility] Comment on above: Performed By: #### P P, LIPID, LYTES, CBC, CREAT, BUN #### [facility] [address] [place] [address] [place] Chloride [Moles/Vol] 106 mmol/L Normal 98-107 [facility] Comment on above: Performed By: #### P P, LIPID, LYTES, CBC, CREAT, BUN #### [facility] [address] [place] [address] [place] CO2 [Moles/Vol] 30.0 mmol/L Normal 21.0-31.0 [facility] Comment on above: Performed By: #### P P, LIPID, LYTES, CBC, CREAT, BUN #### [facility] [address] [place] [address] [place] Potassium [Moles/Vol] 4.4 mmol/L Normal 3.5-5.1 [facility] Comment on above: Performed By: #### P P, LIPID, LYTES, CBC, CREAT, BUN #### [facility] [address] Sodium [Moles/Vol] 142 mmol/L Normal 136-145 [facility] Comment on above: Performed By: #### P P, LIPID, LYTES, CBC, CREAT, BUN #### [facility] [address] Eosinophils Auto (Bld) [#/Vo l]Ordered By: Arsenio Petty on 06-04-2022 Eosinophils (Bld) [#/Vol] 0.1 10*3/uL 0.0-0.45 [facility] Eosinophils/100 WBC Auto (Bl d)Ordered By: Arsenio Petty on 06-04-2022 Eosinophils/100 WBC (Bld) 3.1 % . [facility] Erythrocyte distribution wid th Auto (RBC) [Ratio]Ordered By: Arsenio Petty on 06-04-2022 Erythrocyte distribution width (RBC) [Ratio] 13.5 % 11.9-15.3 [facility] Hematocrit Auto (Bld) [Volum e fraction]Ordered By: Arsenio Petty on 06-04-2022 Hematocrit (Bld) [Volume fraction] 42.5 % 34.0-46.4 [facility] Hemoglobin [Mass/volume] in BloodOrdered By: Arsenio Petty on 06-04-2022 Hemoglobin (Bld) [Mass/Vol] 14.2 g/dL 11.8-15.4 [facility] - Chemistry and C hemistry - challengeon 06-04-2022 Cholesterol [Mass/Vol] 188\S\188 Normal 140-200 [facility] Work Phone: Comment on above: Chol less than 200 m g/dl low risk Chol 201-239 mg/dl borderline risk Chol 240 mg/dl and greater high risk Cholesterol in LDL [Mass/Vol] 110\S\110 above high threshold 0-100 -[facility] DO Work Phone: Comment on above: LDL ATP III CLASSIFI CATION LDL less than 100 mg/dL Optimal LDL 100-129 mg/dL Near or above optimal LDL 130-159 mg/dL Borderline high LDL 160-189 mg/dL High LDL greater than 189 mg/dL Very high Laboratory - CoagulationOrde red By: Arsenio Petty on 06-04-2022 PT Coag (PPP) [Time] 10.6 s 9.0-12.9 [facility] Leukocytes [#/volume] correc codey for nucleated erythrocytes in Blood by Automated counOrdered By: Arsenio Petty on 06-04-2022 WBC corrected for nucl RBC Auto (Bld) [#/Vol] 4.1 10*3/uL 3.8-11.6 [facility] Lipid Panelon 06-04-2022 Cholesterol [Mass/Vol] 188 mg/dL Normal 140-200 [facility] Comment on above: Result Comment: Chol less than 200 mg/dl low risk Chol 201-239 mg/dl borderline risk Chol 240 mg/dl and greater high risk Performed By: #### P P, LIPID, LYTES, CBC, CREAT, BUN #### [facility] [address] [place] [address] Cholesterol in HDL [Mass/Vol] 61 mg/dL Normal 35-85 [facility] Comment on above: Result Comment: HDL CHOL ATP-III CLASSIFICATION Cardiovascular Risk HDL > or equal to 60 mg/dL LOW HDL < 40 mg/dL HIGH Performed By: #### P P, LIPID, LYTES, CBC, CREAT, BUN #### [facility] [address] Cholesterol.total/Chol esterol in HDL [Mass ratio] 3.1 {ratio} Normal <5.0 [facility] Comment on above: Result Comment: PERF ORMED BY: [place] [address] PATHOLOGIST ELECTRONIC IMAGING SYSTEM OPERATOR LAURA WEST M.D. Performed By: #### P P, LIPID, LYTES, CBC, CREAT, BUN #### [facility] [address] LDL Cholesterol,Calculated 110 mg/dL High 0-100 [facility] Comment on above: Result Comment: LDL ATP III CLASSIFICATION LDL less than 100 mg/dL Optimal LDL 100-129 mg/dL Near or above optimal LDL 130-159 mg/dL Borderline high LDL 160-189 mg/dL High LDL greater than 189 mg/dL Very high Performed By: #### P P, LIPID, LYTES, CBC, CREAT, BUN #### [facility] [address] Triglyceride w/Reflex 85 mg/dL Normal 0-149 [facility] Comment on above: Result Comment: TRIG ATP III CLASSIFICATION TRIG less than 150 mg/dL Normal TRIG 150-199 mg/dL Borderline high TRIG 200-500 mg/dL High TRIG greater than 500 mg/dL Very high Standard traceable to the Center for Disease Conrtrol and Prevention (CDC) test method. Performed By: #### P P, LIPID, LYTES, CBC, CREAT, BUN #### [facility] [address] VLDL CHOLESTEROL 17 mg/dL Normal [facility] Comment on above: Performed By: #### P P, LIPID, LYTES, CBC, CREAT, BUN #### [facility] [address] Lymphocytes Auto (Bld) [#/Vo l]Ordered By: Arsenio Petyt on 06-04-2022 Lymphocytes (Bld) [#/Vol] 0.9 10*3/uL 1.00-4.8 [facility] Lymphocytes/100 WBC Auto (Bl d)Ordered By: Arsenio Petty on 06-04-2022 Lymphocytes/100 WBC (Bld) 23.0 % . [facility] MCH Auto (RBC) [Entitic mass ]Ordered By: Arsenio Petty on 06-04-2022 MCH (RBC) [Entitic mass] 28.8 pg 24.7-34.3 [facility] MCHC Auto (RBC) [Mass/Vol]Or dered By: Arsenio Petty on 06-04-2022 MCHC (RBC) [Mass/Vol] 33.4 g/dL 32.0-35.0 [facility] MCV Auto (RBC) [Entitic vol] Ordered By: Arsenio Petty on 06-04-2022 MCV (RBC) [Entitic vol] 86.3 fL 80-100 [facility] Monocytes Auto (Bld) [#/Vol] Ordered By: Arsenio Petty on 06-04-2022 Monocytes (Bld) [#/Vol] 0.3 10*3/uL 0.0-0.8 [facility] Monocytes/100 WBC Auto (Bld) Ordered By: Arsenio Petty on 06-04-2022 Monocytes/100 WBC (Bld) 7.6 % . [facility] Neutrophils Auto (Bld) [#/Vo l]Ordered By: Arsenio Petty on 06-04-2022 Neutrophils (Bld) [#/Vol] 2.7 10*3/uL 1.8-7.7 [facility] Neutrophils/100 WBC Auto (Bl d)Ordered By: Arsenio Petty on 06-04-2022 Neutrophils/100 WBC (Bld) 65.7 % . [facility] No Panel InformationOrdered By: Arsenio Petty on 06-04-2022 Estimated GFR (CKD-EPI) > 60.0 mL/Min [facility] Creatinine Clearance (Chem N/A [facility] No Panel Informationon 06-04 65.7\S\65.7 Normal . [facility] [address] DO Work Phone: 9.0\S\9.0 Normal 6.3-10.7 [facility] DO Work Phone: 161\S\161 Normal 150-450 [facility] DO Work Phone: 13.5\S\13.5 Normal 11.9-15.3 [facility] DO Work Phone: 33.4\S\33.4 Normal 32.0-35.0 -[facility] [address] DO Work Phone: 28.8\S\28.8 Normal 24.7-34.3 -[facility] DO Work Phone: [phone] 2.7\S\2.7 Normal 1.8-7.7 -[facility] 250 DO Work Phone: [phone] 0.1\S\0.1 Normal 0.0-0.45 -[facility] 250 DO Work Phone: [phone] 0.6\S\0.6 Normal . -[facility] 250 DO Work Phone: [phone] 3.1\S\3.1 Normal <5.0 -[facility] 250 DO Work Phone: [phone] Comment on above: PERFORMED BY:[place] [address] [place] [place], [place] [id number] MEDICAL DIRECTORMELCHORCARONDELET ST[facility] JENNA Lockhart 7.6\S\7.6 Normal . [facility] [facility] [address] DO Work Phone: [phone] 23.0\S\23.0 Normal . [facility] [address] DO Work Phone: [phone] 0.0\S\0.0 Normal 0.0-0.2 [facility] [address] DO Work Phone: Comment on above: PERFORMED BY:[facility] [place] [place], [place] [id number] MEDICAL DIRECTORHEALTHSOUTH RE[facility] JENNA Lockhart 0.3\S\0.3 Normal 0.0-0.8 -[facility] [facility] [address] DO Work Phone: [phone] 0.9\S\0.9 Normal [facility] DO Work Phone: [phone] Comment on above: INR Therapeutic Rang e A) Pre- and Peroperative OAT started two weeks before surgery. NOT HIP SURGERY: 1.5 - 2.5 HIP SURGERY: 2 - 3 B) Primary and secondary prevention of venous THROMBOSIS: 2 - 3 C) Active venous thrombosis, pulmonary embolism and prevention of recurrent venous thrombosis: 2 - 3 D) Prevention of arterial thromboembolism including patients with mechanical heart valves: 3 - 4.5 86.3\S\86.3 Normal 80-100 [facility] [facility] [address] DO Work Phone: [phone] 42.5\S\42.5 Normal 34.0-46.4 [facility] [facility] [address] DO Work Phone: [phone] 14.2\S\14.2 Normal 11.8-15.4 [facility] [facility] [address] DO Work Phone: [phone] 4.93\S\4.93 Normal 3.60-5.00 [facility] [facility] [address] DO Work Phone: [phone] 4.1\S\4.1 Normal 3.8-11.6 [facility] [facility] [address] DO Work Phone: [phone] 28.3\S\28.3 Normal 25.1-36.5 [facility] [facility] [address] DO Work Phone: [phone] Comment on above: PERFORMED BY:[place] [address] [place] [place], [place] [id number] MEDICAL DIRECTORLAURA WEST M.D. 10.6\S\10.6 Normal 9.0-12.9 [facility] [facility] [address] DO Work Phone: [phone] 10.4\S\10.4 Normal 6.0-15.0 [facility] [facility] [address] DO Work Phone: [phone] 30.0\S\30.0 Normal 21.0-31.0 [facility] DO Work Phone: [phone] 106\S\106 Normal 98-107 [facility] [facility] [address] DO Work Phone: [phone] 4.4\S\4.4 Normal 3.5-5.1 [facility] 250 DO Work Phone: [phone] 142\S\142 Normal 136-145 [facility] Heart[facility] y 250 DO Work Phone: [phone] 16\S\16 Normal 7-25 [facility] Mellisa y 250 DO Work Phone: > 60.0 Normal [facility] Mellisa carson 250 DO Work Phone: [phone] 0.84\S\0.84 Normal 0.60-1.20 [facility] Heart[facility]atherine y 250 DO Work Phone: [phone] 17\S\17 Normal [facility] Work Phone: [phone] 85\S\85 Normal 0-149 [facility] Mellisa carson 250 DO Work Phone: Comment on above: TRIG ATP III CLASSIF ICATION TRIG less than 150 mg/dL Normal TRIG 150-199 mg/dL Borderline high TRIG 200-500 mg/dL High TRIG greater than 500 mg/dL Very high Standard traceable to the Center for Disease Conrtrol and Prevention (CDC) test method. 61\S\61 Normal 35-85 [facility] Mellisa carson 250 DO Work Phone: Comment on above: HDL CHOL ATP-III CLA SSIFICATION Cardiovascular Risk HDL > or equal to 60 mg/dL LOW HDL < 40 mg/dL HIGH Nucleated erythrocytes [Pres ence] in Blood by Automated countOrdered By: Arsenio Petty on 06-04-2022 Nucleated RBC Auto Ql (Bld) 0.1 /100{WBC} 0-0.5 [facility] Platelet mean volume Auto (B ld) [Entitic vol]Ordered By: Arsenio Petty on 06-04-2022 Platelet mean volume (Bld) [Entitic vol] 9.0 fL 6.3-10.7 [facility] Platelet poor plasma interna tional normalized ratio (INR) by coagulation assay (relatOrdered By: Arsenio Petty on 06-04-2022 INR Coag (PPP) [Relative time] 0.9 {INR} [facility] Comment on above: INR Therapeutic Rang e A) Pre- and Peroperative OAT started two weeks before surgery. NOT HIP SURGERY: 1.5 - 2.5 HIP SURGERY: 2 - 3B) Primary and secondary prevention of venous THROMBOSIS: 2 - 3C) Active venous thrombosis, pulmonary embolismand prevention of recurrent venous thrombosis: 2 - 3D) Prevention of arterial thromboembolismincluding patients with mechanical heart valves: 3 - 4.5 Platelets Auto (Bld) [#/Vol] Ordered By: Arsenio Petty on 06-04-2022 Platelets (Bld) [#/Vol] 161 10*3/uL 150-450 [facility] Potassium [Moles/volume] in Serum or PlasmaOrdered By: Arsenio Petty on 06-04-2022 Potassium [Moles/Vol] 4.4 mmol/L 3.5-5.1 [facility] RBC Auto (Bld) [#/Vol]Ordere d By: Arsenio Petty on 06-04-2022 RBC (Bld) [#/Vol] 4.93 10*6/uL 3.60-5.00 [facility] Serum or plasma anion gap de terminationOrdered By: Arsenio Petty on 06-04-2022 Anion gap [Moles/Vol] 10.4 mmol/L 6.0-15.0 [facility] Serum or plasma high density lipoprotein (HDL) cholesterol measurementOrdered By: Arsenio Petty on 06-04-2022 Cholesterol in HDL [Mass/Vol] 61 mg/dL 35-85 [facility] Comment on above: HDL CHOL ATP-III CLA SSIFICATION Cardiovascular RiskHDL > or equal to 60 mg/dL LOWHDL < 40 mg/dL HIGH Serum or plasma total choles terol/high density lipoprotein (HDL) cholesterol mass ratOrdered By: Arsenio Petty on 06-04-2022 Cholesterol.total/Chol esterol in HDL [Mass ratio] 3.1 {ratio} <5.0 [facility] Sodium [Moles/volume] in Ser um or PlasmaOrdered By: Arsenio Petty on 06-04-2022 Sodium [Moles/Vol] 142 mmol/L 136-145 [facility] Triglyceride [Mass/volume] i n Serum or PlasmaOrdered By: Arsenio Petty on 06-04-2022 Triglyceride [Mass/Vol] 85 mg/dL 0-149 [facility] Comment on above: TRIG ATP III CLASSIF ICATIONTRIG less than 150 mg/dL NormalTRIG 150-199 mg/dL Borderline highTRIG 200-500 mg/dL High TRIG greater than 500 mg/dL Very highStandard traceable to the Center for Disease Conrtrol and Prevention (CDC) test method. Urea nitrogen [Mass/volume] in Serum or PlasmaOrdered By: Arsenio Petty on 06-04-2022 Urea nitrogen [Mass/Vol] 16 mg/dL 7-25 [facility] WBC Auto (Bld) [#/Vol]Ordere d By: Arsenio Petty on 06-04-2022 WBC (Bld) [#/Vol] 4.1 10*3/uL 3.8-11.6 [facility] Screening (Age 18+)on 05-25-2022 Adult depression screening assessment No [facility] DO Work Phone: Fall risk assessment a) No falls within the last year [facility] DO Work Phone: Office Visit (Cardiology)on 05-25-2022 Follow-up visit Diagnoses/Problems Assessed Hyperlipidemia (272.4) (E78.5) Essential hypertension, benign (401.1) (I10) Chest pain, atypical (786.59) (R07.89) Familial heart disease (429.89) (I51.89) Body mass index (BMI) of 22.0 to 22.9 in adult (V85.1) (Z68.22) Abnormal nuclear stress test (794.39) (R94.39) Orders PMH: Abnormal stress test, Body mass index (BMI) of 22.0 to 22.9 in adult, Chest pain, atypical, Hyperlipidemia IO EKG Electrocardiogram- 12 Lead; Status:Complete; Done: 25May2022 PMH: Abnormal stress test, Chest pain, atypical, Hyperlipidemia Cardiac Catherization; Status:Active - Retrospective Authorization; Requested for:25May2022; PMH: Abnormal stress test, Chest pain, atypical, Hyperlipidemia, SocHx: Never a smoker Start: diphenhydrAMINE HCl - 25 MG Oral Capsule (Benadryl Allergy); TAKE 1 CAPSULE 3 times daily for 2 days last dose being the morning of the procedure Start: Famotidine 20 MG Oral Tablet; one tablet twice daily for 2 days and the last dose the morning of the procedure Start: predniSONE 20 MG Oral Tablet; one tablet three times daily for 2 days and then the morning of the procedure PMH: Abnormal stress test, Essential hypertension, benign, Hyperlipidemia Start: Metoprolol Succinate ER 50 MG Oral Tablet Extended Release 24 Hour; Take 1 tablet daily SocHx: Never a smoker Tobacco Use Screening; Status:Complete; Done: 25May2022 Patient Instructions Please bring all medicines, vitamins, and herbal supplements with you when you come to the office. Prescriptions will not be filled unless you are compliant with your follow up appointments or have a follow up appointment scheduled as per instruction of your physician. Refills should be requested at the time of your visit. Cardiac Catherization Follow-up after testing completed Chief Complaint LAQUITA BOGGS is being seen for a consultation for abn stress test. 76-year-old white female who came from the family with coronary heart disease including parents and siblings who was referred to me by Dr. Lockett for evaluation of abnormal nuclear stress test she had done recently showing small mid lateral wall ischemia and mild symptoms of chest pain with exertion but with no ischemic EKG changes. She has been experiencing recently symptoms of atypical chest pain that is not necessarily associated with exertion but rather at rest and sometimes at night. She also has a description of numbness in the left arm. She has no palpitations orthopnea PND or lower extremity edema. She is nondiabetic non-smoker but has hypertension hyperlipidemia on medical therapy. EKG revealed normal sinus rhythm with no abnormalities. All review of system essentially unremarkable outside of this area. She has no weight issues but her blood pressure is out of control. Her cardiac and pulmonary examination and vascular examinations were normal. Assessment/recommendation s: 1?atypical chest pain with strong risk factor for CAD including premature CAD in family members and history of hypertension hyperlipidemia medical therapy, non-smoker with no diabetes but with abnormal nuclear stress test showing small mid lateral ischemia. Based on the above findings patient was advised to pursue further cardiac evaluation with cardiac catheterization for diagnostic and therapeutic purposes. Patient has contrast allergy and therefore should be premedicated. We will add metoprolol succinate 50 mg daily to her present medications. I discussed with the patient and her daughter the cardiac catheterization technique with benefit tensional risks and alternative options of treatment. They both agreed to proceed in this fashion. 2?hypertension, currently uncontrolled. We will add metoprolol succinate 50 mg daily to present dose of losartan. 3?hyperlipidemia on rosuvastatin managed by PCP 4?strong family history of premature CAD Surgical History Problems History of Hysterectomy History of Knee surgery History of Tonsillectomy Past Medical History Problems History of Abnormal stress test (794.39) (R94.39) Resolved Date: 25 May 2022 Current Meds Medication NameInstruction Aspirin EC 81 MG Oral Tablet Delayed ReleaseTAKE 1 TABLET DAILY. Caltrate 600 Plus-Vit D TABSTAKE 1 TABLET DAILY DIRECTED. Fish Oil 1000 MG Oral CapsuleTAKE 1 CAPSULE Daily Losartan Potassium 25 MG Oral TabletTAKE 1 TABLET DAILY. Multi Vitamin Oral TabletTAKE 1 TABLET DAILY. Rosuvastatin Calcium 20 MG Oral TabletTAKE 1 TABLET DAILY. Allergies Medication Iodinated Contrast Media Recorded By: Lobo Harrington; 05/25/2022 11:01:09 AM Iodine Tincture SWAB Recorded By: Lobo Harrington; 05/25/2022 11:01:09 AM Social History Problems Caffeine use (V49.89) (Z78.9) Never a smoker No illicit drug use Social alcohol use (V49.89) (Z78.9) Review of Systems Constitutional: not feeling tired. Cardiovascular: no intermittent leg claudication and as noted in HPI. Respiratory: no cough and no shortness of breath. Gastro (more content not included)... Normal [employer] Tobacco Screening.on 023 Tobacco use status [facility] b) No [facility] Work Phone: NM sherri perf SPECT rest stron 05-21-2022 NM sherri perf SPECT rest [facility] Main [place] [id number] Nuclear Medicine Report Signed Patient: Laquita Boggs MR#: [id number] 5 : 1945 Acct:[id number] Age/Sex: 76 / F ADM Date: 05/21/22 Loc: [place] Room: Type: DEP CLI Attending Dr: Dipak Lockett DO Copies to: DO Rob Kumari MD Ordering Provider: Dipak Lockett DO Date of Service: 05/21/22 NM/NM sherri perf SPECT rest str: R94.31, R07.9, I20.8 REFERRING PHYSICIAN: Dipak Lockett DO REASON FOR STUDY: Chest pain and abnormal EKG. PROCEDURE: The patient underwent 1-day rest/stress protocol. Rest images obtained by injecting 6.5 mCi of Cardiolite. Stress images obtained by injecting 18 mCi of Cardiolite. Subsequently, gated SPECT and ejection fraction studies were performed. IMAGING RESULT: This appears to be a fair study. There is a mild size defect that appears to be mild in severity in the mid segment of the lateral wall suggestive of small area of lateral wall ischemia. Left ventricular ejection fraction appears normal, calculated at 61%. TID index normal at 0.91. CONCLUSION: 1. Small area of mild lateral wall ischemia. 2. No prior VA. 3. Normal left ventricular systolic function and wall motion. Transcribed By: BRIGETTE 05/21/22 1507 Dictated By: Rob Augustin MD 05/21/22 1334 Signed By: 05/31/22 1203 Normal [facility] STR cardiac stress/cardiolon 05-21-2022 STR cardiac stress/cardiol [facility] [place] [address] Cardiac Stress Test Signed Patient: Laquita Boggs MR#: [id number] 5 : 1945 Acct:[id number] Age/Sex: 76 / F ADM Date: 05/21/22 Loc: [place] Room: Type: [facility] CLI Attending Dr: Dipak Lockett DO Copies to: DO Rob Kumari MD Ordering Provider: Dipak Lockett DO Date of Service: 05/21/22 STR/STR cardiac stress/cardiol: abnormal EKG,CP;Abnormal EKG;Chest pain;Angina effort REFERRING PHYSICIAN: Dipak Lockett DO REASON FOR STUDY: Chest pain, abnormal EKG. PROCEDURE: The patient underwent Cardiolite exercise stress test with the Daniel protocol. The patient was able to exercise for a total of 5 minutes 31 seconds, achieving workload of 7 METS. Maximum heart rate was 136 beats per minute, corresponding to 93% of maximum predicted heart rate. Maximum blood pressure was 220/90. The patient test terminated secondary to fatigue, but she did report chest pain at peak exercise. Baseline ECG showed normal sinus rhythm with no ST-T changes. At peak exercise, nondiagnostic changes were seen. However, during recovery, the patient had inverted and downslope ST segment in the inferolateral lead. Those ST-T changes are considered ischemic changes. No arrhythmia was seen. CONCLUSION: 1. Cardiolite exercise stress test with diagnostic ST-T changes consistent with exercise-induced ischemia. 2. Provoked chest pain suspicious of angina at peak exercise, resolved into recovery. 3. Appropriate hemodynamic response to exercise. 4. Good exercise tolerance. 5. Normal heart rate recovery phase. 6. Myocardial perfusion study will be dictated separately. Transcribed By: BRIGETTE 05/21/22 2212 Dictated By: Rob Augustin MD 05/21/22 1342 Signed By: 05/31/22 1203 Normal [facility] XR Chest 2 Views*on 04-30-19 XR Chest 2 Views* Findings: Osseous structures intact. Cardiopericardial silhouette normal. Pulmonary vasculature normal. Lungs clear. IMPRESSION: No acute cardiopulmonary disease. Report reported and signed by Parvez Earl on 04/29/2022 1313 Normal [facility] Specialist SCREENING MAMMOGRAM W/SHELDON, BILATERAL*on 11-16-2021 SCREENING MAMMOGRAM W/SHELDON, BILATERAL* EXAMINATION: Screening Mammogram CLINICAL HISTORY: Nulliparous. Family history of breast cancer. COMPARISON: Dating back to 07/11/2018 TECHNIQUE: 2D and 3D Tomosynthesis of the right and left breasts was performed. FINDINGS: The breast parenchyma is heterogeneously dense bilaterally, which may obscure a small mass. There are no suspicious masses, areas of suspicious microcalcifications or areas of architectural distortion identified. No evidence of skin thickening. There are stable areas of asymmetric density present. IMPRESSION: BIRADS 2 : BENIGN FINDINGS, NORMAL INTERVAL FOLLOW UP. MAMMOGRAPHY IS VERY IMPORTANT TO YOUR HEALTH. THE CURRENT [employer] OF RADI[employer] AND NATIONAL COMPREHENSIVE CANCER NETWORK GUIDELINES RECOMMEND ANNUAL MAMMOGRAPHY BEGINNING AT AGE 40. THIS FACILITY UTILIZES A REMINDER SYSTEM TO ENSURE ALL PATIENTS RECEIVE A REMINDER NOTIFICATION AT THE APPROPRIATE TIME BASED ON THE RECOMMENDATIONS OF THIS EXAM. BOARD CERTIFIED RADIOLOGIST. ACCREDITED BY THE [facility] AND FDA. Report reported and signed by Emilee Osuna on 11/17/2021 0923 Normal [facility] Complete Blood Counton 06-02 Erythrocyte distribution width (RBC) [Ratio] 12.7 % Normal 11.0-15.0 [facility] Comment on above: Performed By: #### T SH, CMP, CBC, LIPD #### [facility] [address] [place], [place] [id number] Hematocrit (Bld) [Volume fraction] 45.2 % Normal 35.0-47.0 [facility] Comment on above: Performed By: #### T SH, CMP, CBC, LIPD #### [facility] [address], [place] [id number] Hemoglobin (Bld) [Mass/Vol] 14.8 g/dL Normal 11.6-15.5 [facility] Comment on above: Performed By: #### T SH, CMP, CBC, LIPD #### [facility] [address], [place] [id number] MCH (RBC) [Entitic mass] 28.7 pg Normal 27.0-33.0 [facility] Comment on above: Performed By: #### T SH, CMP, CBC, LIPD #### [facility] [address], [place] [id number] MCHC (RBC) [Mass/Vol] 32.7 g/dL Normal 32.0-36.0 [facility] Comment on above: Performed By: #### T SH, CMP, CBC, LIPD #### [facility] [address], [place] [id number] MCV (RBC) [Entitic vol] 88 fL Normal 80-100 [facility] Comment on above: Performed By: #### T SH, CMP, CBC, LIPD #### [facility] [address], [place] [id number] Platelet mean volume (Bld) [Entitic vol] 11.10 fL Normal 7.50-12.50 [facility] [place] [facility] Comment on above: Performed By: #### T SH, CMP, CBC, LIPD #### [facility] [address], [place] [id number] Platelets (Bld) [#/Vol] 218 10*3/uL Normal 140-400 [facility] Specialist Comment on above: Performed By: #### T SH, CMP, CBC, LIPD #### [facility] [address], [place] [id number] RBC (Bld) [#/Vol] 5.16 10*6/uL Normal 3.90-5.20 [facility] Comment on above: Performed By: #### T SH, CMP, CBC, LIPD #### [facility] [address], [place] [id number] RDW-SD 40.3 fL Normal 37.0-50.0 [facility] Specialist Comment on above: Performed By: #### T SH, CMP, CBC, LIPD #### [facility] [address], [place] [id number] WBC (Bld) [#/Vol] 5.1 10*3/uL Normal 3.8-11.0 [facility] Specialist Comment on above: Performed By: #### T SH, CMP, CBC, LIPD #### [facility] [address], [place] [id number] Comprehensive Metabolic Pane [facility] 06-02-2021 Albumin [Mass/Vol] 4.7 g/dL Normal 3.6-5.1 [facility]stetrician Comment on above: Performed By: #### T SH, CMP, CBC, LIPD #### [facility] [address], [place] [id number] Albumin/Globulin [Mass ratio] 2.0 {ratio} Normal 1.0-2.5 [facility] Specialist Comment on above: Performed By: #### T SH, CMP, CBC, LIPD #### [facility] [address], [place] [id number] ALP [Catalytic activity/Vol] 95 U/L Normal 35-119 [facility] Specialist Comment on above: Performed By: #### T SH, CMP, CBC, LIPD #### [facility] [address] [place], [place] [id number] ALT [Catalytic activity/Vol] 19 U/L Normal 6-33 [facility] Comment on above: Result Comment: 01/28 Female reference range changed. Performed By: #### T SH, CMP, CBC, LIPD #### [facility] [address] [place], [place] [id number] Anion gap [Moles/Vol] 20 mmol/L Normal 12-20 [facility] Comment on above: Result Comment: Effe ctive 03/05/2019 reference range changed. Performed By: #### T SH, CMP, CBC, LIPD #### [facility] [address] [place] [id number] AST [Catalytic activity/Vol] 24 U/L Normal 9-34 [facility] Comment on above: Performed By: #### T SH, CMP, CBC, LIPD #### [facility] [address] [facility] [place] [id number] BUN/CREA 29 Ratio High 6-22 [facility] Comment on above: Performed By: #### T SH, CMP, CBC, LIPD #### [facility] [address] [place], [place] [id number] Calcium [Mass/Vol] 10.6 mg/dL High 8.6-10.2 [facility] Comment on above: Performed By: #### T SH, CMP, CBC, LIPD #### [facility] [address] [place], [place] [id number] Chloride [Moles/Vol] 103 mmol/L Normal 98-107 [facility] Comment on above: Performed By: #### T SH, CMP, CBC, LIPD #### [facility] [address] [place], [place] [id number] CO2 [Moles/Vol] 24 mmol/L Normal 20-31 [facility] Comment on above: Performed By: #### T SH, CMP, CBC, LIPD #### [facility] [address] [facility] [place] [place] [id number] Creatinine [Mass/Vol] 0.7 mg/dL Normal 0.6-1.4 [facility] [place] [facility] Obstetrician Comment on above: Performed By: #### T SH, CMP, CBC, LIPD #### [facility] [address], [place] [id number] eGFRAA 96 mL/min/1.73m2 Normal >60 [facility] Specialist Comment on above: Performed By: #### T SH, CMP, CBC, LIPD #### [facility] [address], [place] [id number] eGFRNAA 79 mL/min/1.73m2 Normal >60 [facility] Specialist Comment on above: Performed By: #### T SH, CMP, CBC, LIPD #### [facility] [address], [place] [id number] Globulin (S) [Mass/Vol] 2.3 g/dL Normal 1.9-3.7 [facility] Physician Obstetrician Comment on above: Performed By: #### T SH, CMP, CBC, LIPD #### [facility] [address] [place], [place] [id number] Glucose [Mass/Vol] 87 mg/dL Normal 65-99 [facility] Physician Obstetrician Comment on above: Result Comment: For FASTING Glucose --- ADA reference ranges: Normal 65-99 mg/dl Prediabetes 100-125 Diabetes >/= 126 Performed By: #### T SH, CMP, CBC, LIPD #### [facility] [address], [place] [id number] Potassium [Moles/Vol] 4.4 mmol/L Normal 3.5-5.5 [facility] Comment on above: Performed By: #### T SH, CMP, CBC, LIPD #### [facility] [address], [place] [id number] Protein [Mass/Vol] 7.0 g/dL Normal 6.1-8.1 [place] [facility] [place] [facility] Obstetrician Comment on above: Performed By: #### T SH, CMP, CBC, LIPD #### [facility] [address], [place] [id number] Sodium [Moles/Vol] 143 mmol/L Normal 135-146 [place] [facility] [place] Phys[facility] Obstetrician Comment on above: Performed By: #### T SH, CMP, CBC, LIPD #### [facility] [address], [place] [id number] TBIL <0.3 Normal [facility] Specialist Comment on above: Performed By: #### T SH, CMP, CBC, LIPD #### [facility] [address] [place], [place] [id number] Urea nitrogen [Mass/Vol] 21 mg/dL Normal 7-25 [facility] Specialist Comment on above: Performed By: #### T SH, CMP, CBC, LIPD #### [facility] [address], [place] [id number] Lipid Panelon 06-02-2021 Cholesterol [Mass/Vol] 300 mg/dL High 125-200 [facility] Comment on above: Result Comment: Low risk < 200mg/dL Borderline risk 201-239 mg/dl High risk > or equal to 240 Performed By: #### T SH, CMP, CBC, LIPD #### [facility] [address] [place], [place] [id number] Cholesterol in HDL [Mass/Vol] 58 mg/dL Normal >40 [facility] Specialist Comment on above: Result Comment: High Cardiovascular Risk HDL <40 mg/dL Low Cardiovascular Risk HDL > or equal to 60 mg/dl Performed By: #### T SH, CMP, CBC, LIPD #### [facility] [address] [place], [place] [id number] Cholesterol in LDL [Mass/Vol] 218 mg/dL Normal [facility] Specialist Comment on above: Result Comment: LDL ATP III CLASSIFICATION LDL less than 100 mg/dl Optimal LDL 100-129 mg/dl Near or above optimal LDL 130-159 Borderline high LDL 160-189 High LDL greater than 189 mg/dl Very High Performed By: #### T SH, CMP, CBC, LIPD #### [facility] [address], [place] [id number] Cholesterol in VLDL [Mass/Vol] 24 mg/dL Normal [facility] Specialist Comment on above: Performed By: #### T SH, CMP, CBC, LIPD #### [facility] [address], [place] [id number] Cholesterol.total/Chol esterol in HDL [Mass ratio] 5 {ratio} Normal [facility] Specialist Comment on above: Performed By: #### T SH, CMP, CBC, LIPD #### [facility] [address], [place] [id number] Triglyceride [Mass/Vol] 120 mg/dL Normal 30-150 [facility] Specialist Comment on above: Result Comment: TRIG ATPIII CLASSIFICATIONS TRIG less than 150 mg/dl Normal TRIG 150-199 mg/dl Borderline High TRIG 200-500 mg/dl High TRIG greather than 500 mg/dl Very High Performed By: #### T SH, CMP, CBC, LIPD #### [facility] [address], [place] [id number] MRA Head w/oon 06-02-2021 MRA Head w/o EXAMINATION: MRI of the brain without contrast HISTORY: COMPARISON: None. TECHNIQUE: Routine noncontrast brain MRA protocol, please refer to the brain MRI report for additional findings in INTRACRANIAL MRA RESULTS: The visualized distal vertebral and basilar arteries are widely patent. The distal ICAs are patent and within normal limits of caliber. The proximal ACAs, MCAs and revenue stamp cutter are patent and within normal limits of caliber and configuration. There is no evidence of focal, significant stenosis or aneurysm in the visualized vessels. IMPRESSION: Negative study Report reported and signed by ELADIO SIDDIQUI on 06/03/2021 1311 Normal [facility] MRI Brain w/oon 06-02-2021 MRI Brain w/o EXAMINATION: MRI of the brain without contrast HISTORY: COMPARISON: None. TECHNIQUE: Routine noncontrast brain MRI protocol including diffusion and gradient echo images. RESULT: MR BRAIN: Acute Change: There is no evidence of restricted diffusion to suggest an acute infarct. Hemorrhage: No evidence of prior parenchymal hemorrhage on the gradient echo images. Mass Effect / Mass Lesion: No evidence of an intracranial mass or extra-axial fluid collection. No significant mass effect. Chronic Change: Scatter foci of T2/flair increasing no more scattered in the subcortical and periventricular white matter likely secondary to microangiopathy. Parenchyma: There is prominence of the sulci and ventricles consistent with global cerebral atrophy. There are lacunar infarcts or dilated perivascular spaces in the basal ganglia. Ventricles: Normal caliber and morphology. Skull Base: Hypothalamic and pituitary region are grossly normal. Craniocervical junction is normal. No significant marrow replacement process. Vasculature: Major intracranial arterial structures, and dural venous sinuses show typical flow void, suggesting patency by spin echo criteria. Other: The visualized paranasal sinuses are clear. Mastoid air cells are clear. The orbits and extracranial soft tissues are unremarkable. 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 No acute ischemia. Report reported and signed by ELADIO SIDDIQUI on 06/03/2021 1258 Normal [facility] Physician Obstetrician TSHon 06-02-2021 TSH 1.660 uIU/mL Normal 0.400-4.50 0 [facility] Physician Obstetrician Comment on above: Performed By: #### T SH, CMP, CBC, LIPD #### [facility] [address] [facility] [place] [id number] COVID Quick Testingon 2020 Result Positive [place] [employer] Other Vital Signs Date Time Vital Sign Value Performing Clinician Facility 09-14-2023 09:27-0400 Diastolic blood pressure 68 mm[Hg] Arsenio Petty MD Work Phone: [facility] 09-14-2023 09:27-0400 Systolic blood pressure 122 mm[Hg] Arsenio Petty MD Work Phone: [facility] 09-14-2023 09:25-0400 Body height 172.7 cm Arsenio Petty MD Work Phone: [facility] 09-14-2023 09:25-0400 Body mass index (BMI) [Ratio] 21.44 kg/m2 Arsenio Petty MD Work Phone: [facility] 09-14-2023 09:25-0400 Body weight 63.96 kg Arsenio Petty MD Work Phone: [facility] 09-14-2023 09:25-0400 Heart rate 68 /min Arsenio Petty MD Work Phone: [facility] 08-23-2023 10:06-0400 Diastolic blood pressure 75 mm[Hg] Arsenio Petty MD Work Phone: [facility] 08-23-2023 10:06-0400 Systolic blood pressure 155 mm[Hg] Arsenio Petty MD Work Phone: [facility] 08-23-2023 09:41-0400 Body height 172.7 cm Arsenio Petty MD Work Phone: [facility] 08-23-2023 09:41-0400 Body mass index (BMI) [Ratio] 21.59 kg/m2 Arsenio Petty MD Work Phone: [facility] 08-23-2023 09:41-0400 Body weight 64.41 kg Arsenio Petty MD Work Phone: [facility] 08-23-2023 09:41-0400 Heart rate 60 /min Arsenio Petty MD Work Phone: [facility] 08-18-2023 09:30-0400 Diastolic blood pressure 100 mm[Hg] Arsenio Petty MD Work Phone: [facility] 08-18-2023 09:30-0400 Systolic blood pressure 180 mm[Hg] Arsenio Petty MD Work Phone: [facility] 08-18-2023 09:04-0400 Body height 172.7 cm Arsenio Petty MD Work Phone: [facility] 08-18-2023 09:04-0400 Body mass index (BMI) [Ratio] 21.74 kg/m2 Arsenio Petty MD Work Phone: [facility] 08-18-2023 09:04-0400 Body weight 64.86 kg Arsenio Petty MD Work Phone: [facility] 08-18-2023 09:04-0400 Heart rate 64 /min Arsenio Petty MD Work Phone: [facility] 04-13-2023 09:51-0500 Body height 172.7 cm Dipak Lockett DO Work Phone: [facility] 04-13-2023 09:51-0500 Body mass index (BMI) [Ratio] 20.98 kg/m2 Dipakcandida Lockett DO Work Phone: [facility] 04-13-2023 09:51-0500 Body weight 62.6 kg Dipakcandida Lockett DO Work Phone: [facility] 04-13-2023 09:51-0500 Diastolic blood pressure 70 mm[Hg] Dipakcandida Lockett DO Work Phone: [facility] 04-13-2023 09:51-0500 Heart rate 64 /min Dipak Kellerracheal BRASWELL Work Phone: [facility] 04-13-2023 09:51-0500 SaO2% (BldA) [Mass fraction] 98 % Dipak Levy DO Work Phone: [facility] 04-13-2023 09:51-0500 Systolic blood pressure 128 mm[Hg] Dipak Lockett Work Phone: [facility] 02-02-2023 09:23-0500 Body height 172.7 cm Arsenio Petty MD Work Phone: [facility] 02-02-2023 09:23-0500 Body mass index (BMI) [Ratio] 22.05 kg/m2 Arsenio Petty MD Work Phone: [facility] 02-02-2023 09:23-0500 Body weight 65.77 kg Arsenio Petty MD Work Phone: [facility] 02-02-2023 09:23-0500 Diastolic blood pressure 80 mm[Hg] Arsenio Petty MD Work Phone: [facility] 02-02-2023 09:23-0500 Heart rate 64 /min Arsenio Petty MD Work Phone: [facility] 02-02-2023 09:23-0500 Systolic blood pressure 138 mm[Hg] Arsenio Petty MD Work Phone: [facility] 07-23-2022 08:50-0400 Body height 172.72 cm Dipak Lockett Work Phone: [facility] 250 DO Work Phone: 07-23-2022 08:50-0400 Body mass index (BMI) [Ratio] 22.5 kg/m2 Dipak Lockett Work Phone: [facility] 250 DO Work Phone: 07-23-2022 08:50-0400 Body surface area Derived from formula 1.8 m2 Dipak Lockett Work Phone: [facility] 250 DO Work Phone: 07-23-2022 08:50-0400 Body weight 67.13 kg Dipak Lockett Work Phone: [facility] 250 DO Work Phone: 07-23-2022 08:50-0400 Diastolic blood pressure 70 mm[Hg] Dipak Lockett Work Phone: [facility] 250 DO Work Phone: 07-23-2022 08:50-0400 Heart rate 60 /min Dipak Lockett Work Phone: [facility] 250 DO Work Phone: 07-23-2022 08:50-0400 Systolic blood pressure 136 mm[Hg] Dipak Lockett Work Phone: [facility] 250 DO Work Phone: 06-08-2022 21:25-0400 Diastolic blood pressure 81 mm[Hg] DO Dipak Lockett Work Phone: [facility] 06-08-2022 21:25-0400 Heart rate 72 /min DO Dipak Lockett Work Phone: [facility] 06-08-2022 21:25-0400 Respiratory rate 18 /min DO Dipak Lockett Work Phone: [facility] 06-08-2022 21:25-0400 SaO2% (BldA) [Mass fraction] 100 % DO Dipak Lockett Work Phone: [facility] 06-08-2022 21:25-0400 Systolic blood pressure 168 mm[Hg] DO Dipak Lockett Work Phone: [facility] 06-08-2022 19:55-0400 Body temperature 98 [degF] DO Diapk Lockett Work Phone: [facility] 06-08-2022 13:43-0400 Body height 172.72 cm DO Dipak Lockett Work Phone: [facility] 06-08-2022 13:43-0400 Body weight 68 kg DO Dipak Lockett Work Phone: [facility] 05-25-2022 11:04-0400 Diastolic blood pressure 90 mm[Hg] Dipak Kellerman Work Phone: [facility] [place] 250 DO Work Phone: 05-25-2022 11:04-0400 Systolic blood pressure 158 mm[Hg] Dipak Kellerman Work Phone: [facility] [place] 250 DO Work Phone: 05-25-2022 11:03-0400 Body height 172.72 cm Dipak Kellerman Work Phone: [facility] [place] 250 DO Work Phone: 05-25-2022 11:03-0400 Body mass index (BMI) [Ratio] 22.81 kg/m2 Dipak Lockett Work Phone: [facility] [place] 250 DO Work Phone: 05-25-2022 11:03-0400 Body surface area Derived from formula 1.81 m2 Dipak Lockett Work Phone: [facility] 250 DO Work Phone: 05-25-2022 11:03-0400 Body weight 68.04 kg Dipak Kellerman Work Phone: [facility] 250 DO Work Phone: 05-25-2022 11:03-0400 Diastolic blood pressure 92 mm[Hg] Dipak Lockett Work Phone: [facility] [facility] DO Work Phone: 05-25-2022 11:03-0400 Heart rate 74 /min Dipak Lockett Work Phone: [facility] 250 DO Work Phone: 05-25-2022 11:03-0400 Systolic blood pressure 164 mm[Hg] Dipak Lockett Work Phone: [facility] 250 DO Work Phone: 05-21-2022 09:03-0400 61 1 Dipak Kellerman Work Phone: [facility] 250 DO Work Phone: Comment on above: [id number] 05-21-2022 00:00-0400 61 1 Dipak Kellerman Work Phone: [facility] 250 DO Work Phone: Comment on above: [id number] 04-14-2021 16:15-0500 Body height 172.09 cm Kaveh García Other [employer] Other 04-14-2021 16:15-0500 Body mass index (BMI) [Ratio] 23.46 kg/m2 Kaveh García Other [employer] Other 04-14-2021 16:15-0500 Body weight 69.49 kg Kaveh García Other [employer] Other 04-14-2021 16:15-0500 Diastolic blood pressure 90 mm[Hg] Kaveh Ricky Other [employer] Other 04-14-2021 16:15-0500 Respiratory rate 18 /min Kaveh García Other [employer] Other 04-14-2021 16:15-0500 SaO2% (BldA) [Mass fraction] 97 % Kaveh García Other [employer] Other 04-14-2021 16:15-0500 Systolic blood pressure 160 mm[Hg] Kaveh García Other [employer] Other 01-14-2021 13:45-0500 Body height 172.09 cm Steffi Patricia Other [employer] Other 01-14-2021 13:45-0500 Body mass index (BMI) [Ratio] 22.97 kg/m2 Steffi Patricia Other [employer] Other 01-14-2021 13:45-0500 Body temperature 98.2 [degF] Steffi Patricia Other [employer] Other 01-14-2021 13:45-0500 Body weight 68.04 kg Steffi Patricia Other [employer] Other 01-14-2021 13:45-0500 Respiratory rate 18 /min Steffi Patricia Other [employer] Other 01-14-2021 13:45-0500 SaO2% (BldA) [Mass fraction] 99 % Steffi Gomez Other [facility] [employer] Other Encounters Encounter Date Encounter Type Care Provider Facility Start: 01-03-2024 End: 01-03-2024 ambulatory MORRO Orona NIKKI Not Available Start: 10-12-2023 End: 10-12-2023 ambulatory MORRO Adwoa CROOK Not Available Start: 09-14-2023 End: 09-14-2023 Office outpatient visit 10 minutes Arsenio Petty MD Work Phone: [facility] Comment on above: Essential hypertensi on, benign; BMI 21.0-21.9, adult; Never smoked tobacco Start: 09-14-2023 End: 09-14-2023 ambulatory [facility] Ambulatory Start: 08-23-2023 End: 08-23-2023 Office outpatient visit 10 minutes Arsenio Petty MD Work Phone: [facility] Comment on above: Essential hypertensi on, benign; Atherosclerotic heart disease of [place] coronary artery without angina pectoris Start: 08-23-2023 End: 08-23-2023 ambulatory [facility] Start: 08-18-2023 End: 08-18-2023 Office outpatient visit 25 minutes Arsenio Petty MD Work Phone: [facility] Comment on above: Atherosclerosis of n ative coronary artery of [place] heart without angina pectoris; S/P PTCA (percutaneous transluminal coronary angioplasty); Essential hypertension, benign; Mixed hyperlipidemia; BMI 21.0-21.9, adult; Never smoked tobacco Start: 08-18-2023 End: 08-18-2023 ambulatory [facility] Start: 04-13-2023 Bamboo flowsheet Dipak A Gar man DO Work Phone: [facility] Start: 04-13-2023 Bamboo flowsheet Dipak A Gar man DO Work Phone: [facility] Start: 04-13-2023 End: 04-13-2023 Office outpatient visit 25 minutes Dipak Lockett DO Work Phone: [facility] Comment on above: Coronary artery dise ase involving [place] heart without angina pectoris, unspecified vessel or lesion type (CMS/HCC) (Primary Dx); Cerebrovascular accident (CVA), unspecified mechanism (CMS/HCC); Mixed hyperlipidemia (CMS/HCC); Stented coronary artery; Sequela of lacunar infarction; Cerebral atrophy (CMS/HCC); Essential hypertension (CMS/HCC); Medication management Start: 04-13-2023 End: 04-13-2023 ambulatory DIPAK LOCKETT Not Available Start: 02-02-2023 End: 02-02-2023 Office outpatient visit 25 minutes Arsenio Petty MD Work Phone: [facility] Comment on above: Atherosclerosis of n ative coronary artery of [place] heart without angina pectoris; S/P PTCA (percutaneous transluminal coronary angioplasty); Essential hypertension, benign; Mixed hyperlipidemia Start: 02-02-2023 End: 02-02-2023 ambulatory ARSENIO Mckeon [facility] Ambulatory Start: 07-23-2022 Office outpatient vi sit 25 minutes Dipak Lockett Work Phone: [facility] 250 DO Work Phone: Start: 06-25-2022 End: 06-26-[address] DOCTOR DICKERSON Facility:[id number] Start: 06-09-2022 Chart Update Dipak antonio Work Phone: [facility] 250 DO Work Phone: Start: 06-08-[address] Dipak De León Facility:[id number] Start: 06-08-2022 End: 06-09-2022 ambulatory Dipak Lockett Facility:[facility] Start: 06-08-2022 End: 06-08-2022 Admission to same day surgery center DO Dipak Lockett Work Phone: [facility] Work Phone: Start: 06-08-2022 End: 06-08-2022 ambulatory DO Dipak Lockett Work Phone: [facility] Work Phone: Start: 06-08-2022 ambulatory Dallin Mcghee Facilit y:[id number] Start: 06-04-2022 End: 06-04-2022 ambulatory Dipak Lockett Facility:[facility] Start: 06-04-2022 End: 06-04-2022 ambulatory DO Dipak Lockett Work Phone: [facility] Work Phone: Start: 06-04-2022 End: 06-04-2022 Patient encounter procedure DO Dipak Lockett Work Phone: [facility] [facility] Work Phone: Start: 05-25-2022 Office consultation new/estab patient 80 min Dipak Lockett Work Phone: -Located Within [facility] 250 DO Work Phone: Start: 05-25-[address] Dipak De León Facility:[id number] Start: 05-21-[address] Dipak De León Facility:[id number] Start: 05-21-2022 End: 05-21-2022 ambulatory Alaina Mcghee Facility:[facility] Start: 05-21-2022 End: 05-21-2022 ambulatory DO Dipak Lockett Work Phone: [facility] Work Phone: Start: 05-21-2022 End: 05-21-2022 Patient encounter procedure DO Dipak Lockett Work Phone: [facility] Work Phone: Start: 05-21-[address] Dipak De León Facility:[id number] Start: 05-11-2022 ambulatory W Oh Mcghee Facilit y:[facility] Start: 05-11-2022 End: 05-11-2022 ambulatory DO Dipak Lockett Work Phone: [facility] Work Phone: Start: 05-11-2022 End: 05-11-2022 Patient encounter procedure DO Dipak Lockett Work Phone: [facility] Work Phone: Start: 04-19-2021 End: 04-19-2021 ambulatory Kaveh García Other [employer] Other Start: 04-19-2021 Telephone encounter Kaveh MONACO G [facility] Start: 04-14-2021 End: 04-14-2021 ambulatory Kaveh García Other [employer] Other Start: 04-14-2021 Office outpatient vi sit 25 minutes Kaveh García [facility] [place] Start: 01-14-2021 End: 01-14-2021 ambulatory Steffi Gomez Other [employer] Other Start: 01-14-2021 Office outpatient vi sit 15 minutes Steffi Gomez [facility] Procedures Date Procedure Procedure Detail Performing Clinician Start: 06-08-[address] acement 0 DO Dipak Lockett Work Phone: Start: 06-08-2022 CL Ivus Initial Vessel DO Dipak Lockett Work Phone: Start: 06-08-2022 CL LHC & COR Angio DO J ynes Lockett Work Phone: Start: 06-08-2022 CL Stent 1st Vessel CX JERRICA DO Dipak Lockett Work Phone: Start: 06-08-2022 CL Stent 1st Vessel RCA JERRICA DO Dipak Lockett Work Phone: Start: 06-08-2022 DO Dipak Lockett Work Phone: Start: 05-21-2022 Radionuclide myocard ial perfusion stress study DO Dipak Lockett Work Phone: Cardiac catheterization Jorge Lockett Work Phone: Hysterectomy Dipak oconnor Work Phone: Operative procedure on knee Dipak Lockett Work Phone: Tonsillectomy Dipak antonio Work Phone: Plan of Treatment Date Care Activity Detail Author Start: 03-15-2024 End: 03-15-2024 Patient encounter procedure 03/15/2024 8:50 AM EST Office Visit [facility] [address] [place] [address] Arsenio Petty MD [address] [place] [address] [facility] Start: 10-30-2023 Influenza vaccination [facility] Start: 10-12-2023 End: 10-12-2023 Comprehensive metabolic 2000 panel - Serum or Plasma Comprehensive metabolic panel Lab Routine Essential hypertension (CMS/HCC) Expected: 10/12/2023 (Approximate), Expires: 10/12/2023 [facility] Comment on above: Expected: 10/12/2023 (Approximate), Expires: 10/12/2023 Start: 10-12-2023 End: 04-13-2024 Lipid 1996 panel - Serum or Plasma Lipid panel Lab Routine Mixed hyperlipidemia (CMS/HCC) Expected: 10/12/2023 (Approximate), Expires: 04/13/2024 [facility] [employer] Work Phone: Comment on above: Expected: 10/12/2023 (Approximate), Expires: 04/13/2024 Start: 10-12-2023 End: 04-13-2024 Microalbumin/Creatinine panel in random Urine Microalbumin / creatinine urine ratio Lab Routine Essential hypertension (CMS/HCC) Expected: 10/12/2023 (Approximate), Expires: 04/13/2024 [facility] Comment on above: Expected: 10/12/2023 (Approximate), Expires: 04/13/2024 Start: 10-12-2023 End: 04-13-2024 Thyrotropin [Units/volume] in Serum or Plasma TSH Lab Routine Medication management Expected: 10/12/2023 (Approximate), Expires: 04/13/2024 [facility] Comment on above: Expected: 10/12/2023 (Approximate), Expires: 04/13/2024 Start: 10-12-2023 End: 10-12-2023 Patient encounter procedure 10/12/2023 9:15 AM EDT Office Visit [facility] [address] [place] [id number] Dipak Lockett, [address] [place] [address] [facility] Start: 10-05-2023 Medicare Annual Wellness (AWV) Medicare Annual Wellness (AWV) [facility] Start: 09-14-2023 End: 09-14-2023 Clinical Support 09/14/2023 9:30 AM EDT Clinical Support [facility] [address] [place] [address] [facility] Start: 08-23-2023 End: 08-23-2023 Clinical Support 08/23/2023 9:30 AM EDT Clinical Support [facility] [address] [place] [address] [facility] Start: 08-18-2023 End: 08-18-2023 Patient encounter procedure 08/18/2023 9:10 AM EDT Office Visit [facility] [address] [place] [address] Arsenio Petty MD [address] [place] [address] [facility] Start: 04-13-2023 End: 04-13-2023 Patient encounter procedure 04/13/2023 9:30 AM EST Office Visit [facility] [address] [place] [phone] Dipak Lockett, [address] [place] [address] Arrived [facility] Comment on above: Arrived Start: 02-02-2023 FUV, Provider: Arsenio Petty, Status: Pen, Time: 9:20 AM FUV, Provider: Arsenio Petty, Status: Pen, Time: 9:20 AM -Located Within [facility] 250 DO Work Phone: Start: 10-29-2022 COVID-19 Vaccine ( season) COVID-19 Vaccine ( season) [facility] Start: 10-29-2022 Influenza vaccination Influenza Vacc ine (#1) [facility] Start: 07-23-2022 FUV, Provider: Arsenio Petty, Status: Pen, Time: 8:50 AM FUV, Provider: Arsenio Petty, Status: Pen, Time: 8:50 AM -Located Within [facility] [place] 250 DO Work Phone: Start: 06-09-2022 [facility] Start: 06-08-2022 SURGNONUH, Provider: Arsenio Petty, Status: Pen, Time: 3:00 PM SURGNONUH, Provider: Arsenio Petty, Status: Pen, Time: 3:00 PM -Located Within [facility] 250 DO Work Phone: Start: 06-08-2022 End: 06-08-2022 [facility] Start: 05-21-2022 Radionuclide myocard ial perfusion stress study NM sherri perf SPECT rest & str [facility] Start: 02-15-2022 Screening for malign ant neoplasm of colon [facility] Start: 2007 RSV patient s and/or patients aged 60+ years (1 - 1-dose 60+ series) RSV patients and/or patients aged 60+ years (1 - 1-dose 60+ series) [facility] Start: 10-22-1997 Zoster Vaccines (1 o f 2) Zoster Vaccines (1 of 2) [facility] Start: 10-22-1969 DTaP/Tdap/Td Vaccine s (1 - Tdap) DTaP/Tdap/Td Vaccines (1 - Tdap) [facility] Start: 10-22-1965 Hepatitis C screening Hepatitis C Sc isidro [facility] Start: 10-22-1953 Pneumococcal Vaccine : 65+ Years (1 - PCV) Pneumococcal Vaccine: 65+ Years (1 - PCV) [facility] Start: 10-22-1953 Pneumococcal Vaccine : 65+ Years (1 of 2 - PCV) Pneumococcal Vaccine: 65+ Years (1 of 2 - PCV) [facility] Start: 04-24-1948 COVID-19 Vaccine (#1) COVID-19 Vacci ne (#1) [facility] Start: 1947 Lipid panel Lipid Panel [facility] Start: 1947 Medicare Annual Wellness Visit Medicare Annual Wellness Visit (AWV) [facility] Start: 1945 Screening for malign ant neoplasm of colon [facility] Patient Education Coronary Arter y Disease Atherosclerosis High Blood Pressure in Adults Heart Healthy Diet DASH Diet Low Cholesterol, Saturated Fat, and Trans Fat Diet Low Salt Diet Can Foods or Supplements Lower Cholesterol? Lowering Your Risk of Heart Disease Drugs to Help Lower Your Cholesterol [facility] Work Phone: Patient referral [facility] Work Phone: Immunizations Immunization Date Immunization Notes Care Provider Agata echavarria 03-01-2006 tetanus toxoid, adsorbed Dipak Lockett Work Phone: [facility] NEGATED: Highlighted row has not occurred!05-05-2016 influenza, high dose seasonal, preservative-free Patient Objection Steffi Gomez Other [employer] Other Payers Date Payer Category Payer Self-pay [id number] 2021 Unknown 2012 Medicare [id number] 1959 Medicare [id number] 2.1 [id number] 1959 Unknown [id number] 2. [id number] 1947 Unknown [id number] 2.16. [id number] 1947 Unknown [id number] 2.16. 840.1.348326.3.579.2.356 1947 Unknown [id number] 2.16. 840.1.582778.3.579.2.356 1947 Unknown [id number] 2.16. 840.1.939266.3.579.2.356 1947 Unknown [id number] 2.16. 840.1.956116.3.579.2.356 1947 Unknown [id number] 2.16. 840.1.646678.3.579.2.356 1947 Unknown [id number] 2.16.84 0.1.352964.3.579.2.593 1947 Unknown [id number] 2.16.8 40.1.304648.3.579.2.1244 1947 Unknown [id number] 2.16.8 40.1.188696.3.579.2.1244 1947 Unknown [id number] 2.16.8 40.1.570654.3.579.2.1244 1947 Unknown [id number] 2.16.8 40.1.861152.3.579.2.1244 1947 Unknown [id number] 2.16.84 0.1.494669.3.579.2.1259 1947 Unknown [id number] 2.16.84 0.1.721634.3.579.2.1259 1947 Unknown [id number] 2.16.84 0.1.967465.3.579.2.1259 1947 Unknown [id number] 2.16.84 0.1.159765.3.579.2.1259 Unknown [id number] 2.16.8 40.1.067589.3.579.2.531 Unknown [id number] 2.16.8 40.1.006633.3.579.2.531 Unknown [id number] 2.16.8 40.1.043646.3.579.2.531 Unknown [id number] 2.16.8 40.1.130496.3.579.2.531 Social History Date Type Detail Facility Unknown if ever smoked [employer] Other Start: 02-02-2023 End: 08-23-2023 Sex Assigned At [facility] [employer] Other Start: 1945 Sex Assigned At Female F [facility] Start: 02-02-2023 End: 08-23-2023 Caffeine use Caffeine use -[facility] 250 DO Work Phone: Start: 06-08-2022 End: 02-01-2023 Tobacco smoking status NHIS Never smoked tobacco (finding) [facility] Start: 02-02-2023 End: 09-14-2023 Alcohol intake Current drinker of alcohol (finding) [facility] Work Phone: Start: 02-01-2023 Alcohol Comment socially [facility] Work Phone: Start: 1945 Sex Assigned At Not on file U [facility] Work Phone: Start: 01-23-2023 End: 09-14-2023 Exposure to SARS-CoV-2 (event) Not sure [facility] Start: 10-01-2022 Tobacco use and exposure Smokeless tobacco non-user [facility] How often to you hav e a drink containing alcohol? Monthly or less [facility] How many standard drinks containing alcohol do you have on a typical day? 1 or 2 [facility] How often do you hav e 6 or more drinks on 1 occasion? Never [facility] Start: 10-01-2022 Alcohol Comment Caffeine: 2-3 cups/day coffee [facility] Goals Date Patient Goal Desired Activity /State Functional Status Date Assessment Result Facility 06-08-2022 Functional status Patient at [facility] Work Phone: Mental Status Date Assessment Result Facility 06-08-2022 Cognitive function Cognitive Sta tus Patient at [facility] Work Phone: Clinical Notes 12-13-2014 to 09-14-2023 Arsenio Petty MD - 09/14/2023 9:30 AM EDTPatient InstructionsArsenio Petty MD - 08/23/2023 9:30 AM EDTHmelonie Petty MD - 08/18/2023 9:10 AM EDTPatient InstructionsPatient Instructions Note Date & Type Note Facility 09-14-2023 History of Present illness Narrative Subjective Laquita Boggs is a 77 y.o. female Chief Complaint Blood Pressure Check; Hypertension HPI Patient is in the office for follow-up for hypertension management. Since we doubled losartan up to 50 mg twice daily her pressure has completely normalized without any side effects, she will be kept her present medical therapy as it is and she will follow-up with me as scheduled. Review of Systems All other systems reviewed and are negative. Vitals: 09/14/23 0925 09/14/23 0927 BP: 128/64 122/68 BP Location: Left arm Right arm Patient Position: Sitting Sitting Pulse: 68 Weight: 64 kg (141 lb) Height: 1.727 m (5' 8 ) Objective Physical Exam Allergies Betadine swabsticks [povidone-iodine] and Iodinated contrast media Current Medications Current Outpatient Medications: aspirin 81 mg EC tablet, Take 1 tablet (81 mg) by mouth once daily., Disp: , Rfl: calcium carbonate/vitamin D3 (CALTRATE 600 PLUS D ORAL), Take 1 tablet by mouth early in the morning.., Disp: , Rfl: losartan (Cozaar) 50 mg tablet, Take 1 tablet (50 mg) by mouth 2 times a day., Disp: 180 tablet, Rfl: 3 metoprolol succinate XL (Toprol-XL) 25 mg 24 hr tablet, Take 1 tablet (25 mg) by mouth once daily. Do not crush or chew., Disp: 90 tablet, Rfl: 3 multivitamin tablet, Take 1 tablet by mouth once daily., Disp: , Rfl: nitroglycerin (Nitrostat) 0.4 mg SL tablet, Place 1 tablet (0.4 mg) under the tongue every 5 minutes if needed for chest pain., Disp: , Rfl: omega 1-wta-hwd-fish oil (Fish OiL) 1,000 mg (120 mg-180 mg) capsule, Take 1 capsule (1,000 mg) by mouth early in the morning.., Disp: , Rfl: rosuvastatin (Crestor) 20 mg tablet, Take 1 tablet (20 mg) by mouth once daily., Disp: , Rfl: ticagrelor (Brilinta) 60 mg tablet, Take 1 tablet (60 mg) by mouth 2 times a day., Disp: 180 tablet, Rfl: 3 Assessment/Plan 1. Essential hypertension, benign Follow Up In Cardiology 2. BMI 21.0-21.9, adult 3. Never smoked tobacco Scribe Attestation By signing my name below, I, Tami Aranda LPN , Scrshikha attest that this documentation has been prepared under the direction and in the presence of Arsenio Petty MD. Provider Attestation - Scribe documentation All medical record entries made by the Scribe were at my direction and personally dictated by me. I have reviewed the chart and agree that the record accurately reflects my personal performance of the history, physical exam, discussion and plan. documented in this encounter [facility] Work Phone: 09-14-2023 Instructions Tami Klein LPN - 09/14/2023 9:30 AM EDT Please bring all medicines, vitamins, and herbal supplements with you when you come to the office. Prescriptions will not be filled unless you are compliant with your follow up appointments or have a follow up appointment scheduled as per instruction of your physician. Refills should be requested at the time of your visit. 03/15 follow up as scheduled Same meds documented in this encounter [facility] Work Phone: 08-23-2023 History of Present illness Narrative Subjective Laquita Boggs is a 77 y.o. female Chief Complaint Hypertension; Blood Pressure Check HPI Patient is in the office for hypertension management. She remains hypertensive on present medications despite taking her morning pills. Therefore we will double losartan up to 50 mg twice daily and follow blood pressure readings. ROS Vitals: 08/23/23 0941 08/23/23 0950 08/23/23 1006 BP: (!) 142/96 150/80 155/75 BP Location: Left arm Right arm Right arm Patient Position: Sitting Sitting Sitting Pulse: 60 Weight: 64.4 kg (142 lb) Height: 1.727 m (5' 8 ) Objective Physical Exam Allergies Betadine swabsticks [povidone-iodine] and Iodinated contrast media Current Medications Current Outpatient Medications: aspirin 81 mg EC tablet, Take 1 tablet (81 mg) by mouth once daily., Disp: , Rfl: calcium carbonate/vitamin D3 (CALTRATE 600 PLUS D ORAL), Take 1 tablet by mouth early in the morning.., Disp: , Rfl: metoprolol succinate XL (Toprol-XL) 25 mg 24 hr tablet, Take 1 tablet (25 mg) by mouth once daily. Do not crush or chew., Disp: 90 tablet, Rfl: 3 multivitamin tablet, Take 1 tablet by mouth once daily., Disp: , Rfl: nitroglycerin (Nitrostat) 0.4 mg SL tablet, Place 1 tablet (0.4 mg) under the tongue every 5 minutes if needed for chest pain., Disp: , Rfl: omega 7-aga-jpi-fish oil (Fish OiL) 1,000 mg (120 mg-180 mg) capsule, Take 1 capsule (1,000 mg) by mouth early in the morning.., Disp: , Rfl: rosuvastatin (Crestor) 20 mg tablet, Take 1 tablet (20 mg) by mouth once daily., Disp: , Rfl: ticagrelor (Brilinta) 60 mg tablet, Take 1 tablet (60 mg) by mouth 2 times a day., Disp: 180 tablet, Rfl: 3 losartan (Cozaar) 50 mg tablet, Take 1 tablet (50 mg) by mouth 2 times a day., Disp: 180 tablet, Rfl: 3 Assessment/Plan 1. Essential hypertension, benign Follow Up In Cardiology Follow Up In Cardiology 2. Atherosclerotic heart disease of [place] coronary artery without angina pectoris losartan (Cozaar) 50 mg tablet Scribe Attestation By signing my name below, Tami Orellana Shaheen attest that this documentation has been prepared under the direction and in the presence of Arsenio Petty MD. Provider Attestation - Scribe documentation All medical record entries made by the Scribe were at my direction and personally dictated by me. I have reviewed the chart and agree that the record accurately reflects my personal performance of the history, physical exam, discussion and plan. documented in this encounter [facility] Work Phone: 08-18-2023 History of Present illness Narrative Subjective Laquita Boggs is a 77 y.o. female Chief Complaint Follow-up HPI Patient is in the office for follow-up for the problems noted below. She has had no events suggestive of recurrent coronary heart disease, she is compliant medical therapy, she did not take her blood pressure medications this morning and was found to have severe hypertension with a pressure of 180/100 mmHg. She is not symptomatic with it. Her lab data from PCP's record were reviewed and shared with her. She is scheduled to see her PCP in the next few weeks. Her weight is on target examination otherwise was normal. Medical therapy was reviewed with her. Assessment/recommendations: [id number] coronary artery disease with 95% proximal left circumflex and 80% mid RCA stenosis both were treated with drug-eluting stent June 08, 2022. She has 40% LAD lesion that is to be managed medically. Ejection fraction is normal. Will continue dual antiplatelet therapy for 18 months but the dose of the Brilinta will be reduced down to 60 mg twice daily after completing 1 year of therapy. 2-essential hypertension, currently uncontrolled. Patient did not take her morning medications. She will come back next week for blood pressure check if elevated will increase losartan and may add indapamide 3-hyperlipidemia on rosuvastatin, target LDL 50-70 mg/dL, lipid profile is pending 4-strong family history of premature CAD Review of Systems All other systems reviewed and are negative. Vitals: 08/18/23 0904 08/18/23 0930 BP: 146/80 (!) 180/100 BP Location: Left arm Right arm Patient Position: Sitting Sitting Pulse: 64 Weight: 64.9 kg (143 lb) Height: 1.727 m (5' 8 ) Objective Physical Exam Constitutional: Appearance: Normal appearance. HENT: Nose: Nose normal. Neck: Vascular: No carotid bruit. Cardiovascular: Rate and Rhythm: Normal rate. Pulses: Normal pulses. Heart sounds: Normal heart sounds. Pulmonary: Effort: Pulmonary effort is normal. Abdominal: General: Bowel sounds are normal. Palpations: Abdomen is soft. Musculoskeletal: General: Normal range of motion. Cervical back: Normal range of motion. Right lower leg: No edema. Left lower leg: No edema. Skin: General: Skin is warm and dry. Neurological: General: No focal deficit present. Mental Status: She is alert. Psychiatric: Mood and Affect: Mood normal. Behavior: Behavior normal. Thought Content: Thought content normal. Judgment: Judgment normal. Allergies Betadine swabsticks [povidone-iodine] and Iodinated contrast media Current Medications Current Outpatient Medications: aspirin 81 mg EC tablet, Take 1 tablet (81 mg) by mouth once daily., Disp: , Rfl: calcium carbonate/vitamin D3 (CALTRATE 600 PLUS D ORAL), Take 1 tablet by mouth early in the morning.., Disp: , Rfl: losartan (Cozaar) 50 mg tablet, Take 1 tablet (50 mg) by mouth once daily., Disp: , Rfl: multivitamin tablet, Take 1 tablet by mouth once daily., Disp: , Rfl: nitroglycerin (Nitrostat) 0.4 mg SL tablet, Place 1 tablet (0.4 mg) under the tongue every 5 minutes if needed for chest pain., Disp: , Rfl: omega 7-xwr-uhn-fish oil (Fish OiL) 1,000 mg (120 mg-180 mg) capsule, Take 1 capsule (1,000 mg) by mouth early in the morning.., Disp: , Rfl: rosuvastatin (Crestor) 20 mg tablet, Take 1 tablet (20 mg) by mouth once daily., Disp: , Rfl: ticagrelor (Brilinta) 60 mg tablet, Take 1 tablet (60 mg) by mouth 2 times a day., Disp: 180 tablet, Rfl: 3 metoprolol succinate XL (Toprol-XL) 25 mg 24 hr tablet, Take 1 tablet (25 mg) by mouth once daily. Do not crush or chew., Disp: 90 tablet, Rfl: 3 Assessment/Plan 1. Atherosclerosis of [place] coronary artery of [place] heart without angina pectoris Follow Up In Cardiology Follow Up In Cardiology 2. S/P PTCA (percutaneous transluminal coronary angioplasty) Follow Up In Cardiology 3. Essential hypertension, benign Follow Up In Cardiology Follow Up In Cardiology metoprolol succinate XL (Toprol-XL) 25 mg 24 hr tablet 4. Mixed hyperlipidemia 5. BMI 21.0-21.9, adult 6. Never smoked tobacco Scribe Attestation By signing my name below, I, Tami Aranda LPN , Shaheen attest that this documentation has been prepared under the direction and in the presence of Arsenio Petty MD. Provider Attestation - Scribe documentation All medical record entries made by the Scribe were at my direction and personally dictated by me. I have reviewed the chart and agree that the record accurately reflects my personal performance of the history, physical exam, discussion and plan. documented in this encounter [facility] Work Phone: 08-18-2023 Instructions Tami Klein LPN - 08/18/2023 9:10 AM EDT Please bring all medicines, vitamins, and herbal supplements with you when you come to the office. Prescriptions will not be filled unless you are compliant with your follow up appointments or have a follow up appointment scheduled as per instruction of your physician. Refills should be requested at the time of your visit. B/p check one week Remain on Toprol xl 25 mg daily. No med changes. Did not take morning meds today Follow up 6 months Consider stopping Brilinta at 6 month visit documented in this encounter [facility] Work Phone: 04-13-2023 History of Present illness Narrative Laquita Boggs is a 77 y.o. female presents with chief complaint of 6 month follow up (Patient presents today for a 6 month follow up. Labs are in chart for review. She wanted to let the doctor know that she has been under a lot of stress lately, but doesn't feel that she needs medication. ) HPI: HPI Here for routine visit and to review labs. HISTORIES: PAST MEDICAL HISTORY: Past Medical History: Diagnosis Date Hyperlipidemia (CMS/HCC) SURGICAL HISTORY: Past Surgical History: Procedure Laterality Date DEXA 11/08/2019 osteopenia S worse, penia H better HM MAMMOGRAPHY 11/08/2019 Benign HYSTERECTOMY 1991 MR ANGIOGRAM HEAD WO IV CONTRAST 06/02/2021 MR ANGIOGRAM HEAD WO IV CONTRAST [facility] DATA LEGACY OTHER SURGICAL HISTORY 06/08/2022 stents x 4 PAP SMEAR 06/08/2018 negative PA ARTHROSCOPY KNEE DIAGNOSTIC W/WO SYNOVIAL BX SPX Left 2015 PA TONSILLECTOMY & ADENOIDECTOMY <AGE 14 TOTAL ABDOMINAL HYSTERECTOMY JESSIKA RSO SOCIAL HISTORY: Social History Tobacco Use Smoking status: Never Smokeless tobacco: Never Substance Use Topics Alcohol use: Yes Alcohol/week: 2.0 - 6.0 standard drinks of alcohol Types: 2 - 6 Standard drinks or equivalent per week Comment: Caffeine: 2-3 cups/day coffee Drug use: Never Depression: Not at risk (10/04/2022) PHQ-2 PHQ-2 Score: 0 FAMILY HISTORY: Family History Problem Relation Name Age of Onset Heart disease Mother Hyperlipidemia Mother Hyperlipidemia Father Heart disease Father No Known Problems Daughter No Known Problems Son Pancreatic cancer Maternal Grandmother Breast cancer Paternal Grandmother Diabetes Paternal Grandmother Heart disease Sibling Arthritis Sibling Breast cancer Other daughter 39 MEDICATIONS: Current Outpatient Medications Medication Instructions aspirin (Shaquille Low Dose) 81 MG EC tablet Oral, Once Brilinta 90 MG tablet Oral, 2 times daily Calcium Carbonate-Vitamin D (CALTRATE 600+D PO) Daily losartan (Cozaar) 50 MG tablet Oral, Daily metoprolol succinate XL (Toprol-XL) 50 MG 24 hr tablet Oral, Daily MULTIPLE VITAMIN PO Daily nitroglycerin (Nitrostat) 0.4 MG SL tablet Sublingual, Every 5 min PRN omega-3 (Fish Oil) 1000 MG capsule 1 capsule, Oral, Daily rosuvastatin (CRESTOR) 40 mg, Oral, Nightly ALLERGIES: Allergies Allergen Reactions Atorvastatin Other Reaction(s): myalgia Iodine Other Reaction(s): Unknown Other Reaction(s): Rash Simvastatin Other Reaction(s): myalgia REVIEW OF SYMPTOMS: Review of Systems Constitutional: Negative for chills, diaphoresis, fatigue and fever. HENT: Negative for ear pain, hearing loss, sinus pressure, sore throat and trouble swallowing. Eyes: Negative for pain and discharge. Respiratory: Negative for cough and shortness of breath. Cardiovascular: Negative for chest pain, palpitations and leg swelling. Gastrointestinal: Negative for abdominal pain, blood in stool, constipation and diarrhea. Genitourinary: Negative for difficulty urinating. Musculoskeletal: Negative for arthralgias and gait problem. Skin: Negative for rash. Neurological: Negative for dizziness, light-headedness and headaches. Psychiatric/Behavioral: Negative for sleep disturbance. PHYSICAL EXAM: Visit Vitals BP 128/70 Pulse 64 Ht 5' 8 Wt 138 lb SpO2 98% BMI 20.98 kg/m Smoking Status Never BSA 1.73 m Physical Exam Constitutional: General: She is awake. She is not in acute distress. Appearance: She is well-developed. HENT: Head: Normocephalic. Right Ear: Tympanic membrane normal. Left Ear: Tympanic membrane normal. Nose: Nose normal. Mouth/Throat: Mouth: Mucous membranes are moist. Pharynx: Oropharynx is clear. Eyes: Extraocular Movements: Extraocular movements intact. Conjunctiva/sclera: Conjunctivae normal. Neck: Thyroid: No thyromegaly. Vascular: No carotid bruit. Cardiovascular: Rate and Rhythm: Normal rate and regular rhythm. Pulses: Posterior tibial pulses are 1+ on the right side and 1+ on the left side. Heart sounds: Normal heart sounds. No murmur heard. No gallop. Pulmonary: Effort: Pulmonary effort is normal. No respiratory distress. Breath sounds: Normal breath sounds. No wheezing, rhonchi or rales. Chest: Chest wall: No tenderness. Abdominal: General: Bowel sounds are normal. There is no distension. Palpations: Abdomen is soft. There is no hepatomegaly, splenomegaly or mass. Tenderness: There is no abdominal tenderness. Musculoskeletal: General: No deformity. Normal range of motion. Cervical back: Normal range of motion and neck supple. No rigidity or tenderness. Lymphadenopathy: Cervical: No cervical adenopathy. Skin: General: Skin is warm and dry. Neurological: Mental Status: She is alert and oriented to person, place, and time. Motor: No weakness. Gait: Gait is intact. Psychiatric: Mood and Affect: Mood normal. Mood is not anxious or depressed. Behavior: Behavior is cooperative. Thought Content: Thought content normal. Cognition and Memory: Cognition normal. Judgment: Judgment normal. ASSESSMENT AND PLAN: Assessment/Plan Diagnoses and all orders for this visit: Coronary artery disease involving [place] heart without angina pectoris, unspecified vessel or lesion type (CMS/HCC) --follows with Dr. Petty, Brilinta should be discontinued in May Cerebrovascular accident (CVA), unspecified mechanism (CMS/HCC) Mixed hyperlipidemia (CMS/HCC) - Lipid panel; Future Stented coronary artery Sequela of lacunar infarction Cerebral atrophy (CMS/HCC) Essential hypertension (CMS/HCC) - Comprehensive metabolic panel; Future - Microalbumin / creatinine urine ratio; Future Medication management - TSH; Future Dictated, but not read Patient presents today for routine office visit. She overall is doing well except she s sad today because she lost her dog of 15 years. She states that her daughter is also ill with cancer so she has a lot of stress in her life. She lost her horse in the fall. So she states it s been a rough year. Lab results are reviewed with the patient. Her LDL cholesterol is 87. She is on Statin therapy. She does have a history of a stent in his own Brilinta. She follows with Dr. Petty at [facility]. Most likely her LDL cholesterol should be less than 75. She will discuss this with Dr. James when she sees him in May. Blood sugars within normal limits at 93, GFR is normal at 60. Electrolytes and liver function are within normal limits. She was not anemic. The rest the review of systems is negative. Except for occasional shortness of breath, which I explain to her may be secondary to the Brilinta and once that s discontinued. Hopefully she will not notice that anymore. Blood pressure is well controlled. Heart rate is regular at 64. Beats her minute without murmur. Rest of the physical exam is within normal limits. She has not had any neurological symptoms since her CVA. She ll return here in six months for her, Medicare wellness and her routine office visit. documented in this encounter [facility] 02-02-2023 History of Present illness Narrative Subjective Laquita Boggs is a 77 y.o. female Chief Complaint Follow-up HPI Patient is in the office for follow-up for the problems noted below. She had no cardiac events since her last visit. She is compliant with medical therapy. She seems to be going through stressful. Of her life or her 39-year-old daughter was diagnosed with breast cancer with brain and bone metastases. Her 29-year-old horse had to be put down for illness and her 16-year-old dog is probably going to soon. She complained of bruising due to dual antiplatelet therapy but no major bleeding. Examination was essentially unremarkable. Assessment/recommendations: [id number] coronary artery disease with 95% proximal left circumflex and 80% mid RCA stenosis both were treated with drug-eluting stent June 08, 2022. She has 40% LAD lesion that is to be managed medically. Ejection fraction is normal. Will continue dual antiplatelet therapy for 18 months but the dose of the Brilinta will be reduced down to 60 mg twice daily after completing 1 year of therapy. 2-hypertension, currently controlled. 3-hyperlipidemia on rosuvastatin, target LDL 50-70 mg/dL, lipid profile is ordered 4-strong family history of premature CAD Review of Systems All other systems reviewed and are negative. Visit Vitals BP 138/80 (BP Location: Right arm, Patient Position: Sitting) Pulse 64 Ht 1.727 m (5' 8 ) Wt 65.8 kg (145 lb) BMI 22.05 kg/m Smoking Status Never BSA 1.78 m Objective Physical Exam Constitutional: Appearance: Normal appearance. She is normal weight. HENT: Nose: Nose normal. Neck: Vascular: No carotid bruit. Cardiovascular: Rate and Rhythm: Normal rate. Pulses: Normal pulses. Heart sounds: Normal heart sounds. Pulmonary: Effort: Pulmonary effort is normal. Abdominal: General: Bowel sounds are normal. Palpations: Abdomen is soft. Genitourinary: Rectum: Normal. Musculoskeletal: General: Normal range of motion. Cervical back: Normal range of motion. Right lower leg: No edema. Left lower leg: No edema. Skin: General: Skin is warm and dry. Neurological: General: No focal deficit present. Mental Status: She is alert. Psychiatric: Mood and Affect: Mood normal. Behavior: Behavior normal. Thought Content: Thought content normal. Judgment: Judgment normal. Current Medications Current Outpatient Medications: aspirin 81 mg EC tablet, Take 1 tablet (81 mg) by mouth once daily., Disp: , Rfl: calcium carbonate/vitamin D3 (CALTRATE 600 PLUS D ORAL), Take 1 tablet by mouth early in the morning.., Disp: , Rfl: losartan (Cozaar) 50 mg tablet, Take 1 tablet (50 mg) by mouth once daily., Disp: , Rfl: metoprolol succinate XL (Toprol-XL) 50 mg 24 hr tablet, Take 1 tablet (50 mg) by mouth once daily. Do not crush or chew., Disp: , Rfl: multivitamin tablet, Take 1 tablet by mouth once daily., Disp: , Rfl: nitroglycerin (Nitrostat) 0.4 mg SL tablet, Place 1 tablet (0.4 mg) under the tongue every 5 minutes if needed for chest pain., Disp: , Rfl: omega 1-gmn-kgz-fish oil (Fish OiL) 1,000 mg (120 mg-180 mg) capsule, Take 1 capsule (1,000 mg) by mouth early in the morning.., Disp: , Rfl: rosuvastatin (Crestor) 20 mg tablet, Take 1 tablet (20 mg) by mouth once daily., Disp: , Rfl: ticagrelor (Brilinta) 90 mg tablet, Take 1 tablet (90 mg) by mouth 2 times a day., Disp: , Rfl: Assessment/Plan 1. Atherosclerosis of [place] coronary artery of [place] heart without angina pectoris Follow Up In Cardiology 2. S/P PTCA (percutaneous transluminal coronary angioplasty) Follow Up In Cardiology 3. Essential hypertension, benign Follow Up In Cardiology 4. Mixed hyperlipidemia documented in this encounter [facility] Work Phone: 02-02-2023 Instructions Tami Klein LPN - 02/02/2023 9:20 AM EST Please bring all medicines, vitamins, and herbal supplements with you when you come to the office. Prescriptions will not be filled unless you are compliant with your follow up appointments or have a follow up appointment scheduled as per instruction of your physician. Refills should be requested at the time of your visit. May 2023 reduce Brilinta to 60mg one tablet two times daily.Call for new dose. Follow up 6 months documented in this encounter [facility] Work Phone: 06-08-2022 Consult note Note Date/Time June 08, 2022 4:13pm [facility] [address] [place] [address] Cardiology Consult Note Signed Patient: Laquita Boggs MR#: [id number] : 1945 Acct:[id number] Age/Sex: 76 / F Adm Date: 3 Loc: Room: [address] [place] [address] Type: REG [facility] Attending Dr: Arsenio Petty MD Copies to: Arsenio Petty MD, FACC DO Alaina Kumari DO~ Cardiology HPI History of Present Illness Consult Date: 06/08/22 Reason for Consult: ASHD, accelerated hypertension, abnormal myocardial perfusion stress test HPI: Ms. Boggs is a 76 year old female seen in interventional cardiology consultationat the request of Dr. James following diagnostic catheterization today revealing severe two-vessel ASHD with subtotal occlusion of the proximal circumflex and proximal RCA and moderately severe disease of the mid RCA with preserved left ventricular function. Patient had outpatient stress imaging under the direction of her primary care physician which revealed inferior ischemia. She has underlying history of hyperlipidemia and accelerated hypertension in addition to a contrast allergy. There is no prior history of myocardial infarction, revascularization, stroke, thromboembolic or bleeding disorder I personally reviewed the angiogram with Dr. James,, discussed the case, outpatient stress imaging and comorbidities. Plan at this time is proceed with two-vessel revascularization of the circumflexand RCA Following revascularization also discussed case with patient's daughter and the patient herself and need for compliance with medical therapy, better hypertensive management, and cardiology follow-up. Review of Systems Review of Systems All other systems reviewed & are negative unless noted below or in HPI Constitutional Constitutional: Reports as per HPI Cardiovascular Cardiovascular: Reports as per HPI and Reports chest pain with activity Respiratory Respiratory: Reports system reviewed and no additional complaints, except as documented Gastrointestinal Gastrointestinal: Reports system reviewed and no additional complaints, except as documented Genitourinary Genitourinary: Reports system reviewed and no additional complaints, except as documented Musculoskeletal Musculoskeletal: Reports system reviewed and no additional complaints, except asdocumented Integumentary/Breasts Skin/Breast: Reports system reviewed and no additional complaints, except as documented Neurologic Neurologic: Reports system reviewed and no additional complaints, except as documented PMFSH Vaccinated for COVID-19?: No Medical History (Updated 06/08/22 @ 16:06 by Alaina Mcghee DO) 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 Hyperlipidemia Hypertension Kidney stones Osteoporosis Surgical History H/O cataract removal with insertion of prosthetic lens History of hysterectomy History of tonsillectomy Family History Brother Heart disease Father Heart disease Stroke Mother Heart disease Social History Smoking Status: Never smoker Substance Use Type: Alcohol Substance Abuse Comment: 1 wine cooler about once a week Meds Medications and Allergies Allergies Iodinated Contrast Media [Iodine based Contrast Media] Allergy (Verified 06/08/22 13:47) Rash iodine Allergy (Verified 06/08/22 13:47) Rash Home Medications aspirin 81 mg capsule 81 mg PO DAILY 06/04/22 [History Confirmed 06/08/22] calcium carbonate 600 mg-vitamin D3 20 mcg (800 unit) chewable tablet (Caltrate 600 plus D) 1 tab PO BID 06/04/22 [History Confirmed 06/08/22] diphenhydramine HCl 25 mg capsule (Allergy (diphenhydramine)) 25 mg PO TID 06/04/22 [History Confirmed 06/08/22] famotidine 20 mg tablet 20 mg PO QAM 06/04/22 [History Confirmed 06/08/22] losartan 50 mg tablet 50 mg PO QAM 06/04/22 [History Confirmed 06/08/22] metoprolol succinate 50 mg tablet,extended release 24 hr 50 mg PO QAM 06/04/22 [History Confirmed 06/08/22] multivitamin 1 tab PO DAILY 06/04/22 [History Confirmed 06/08/22] omega 0-tza-gpc-fish oil 1,000 mg (120 mg-180 mg) capsule (Fish Oil) 1 cap PO DAILY 06/04/22 [History Confirmed 06/08/22] prednisone 20 mg tablet 20 mg PO QAM 06/04/22 [History Confirmed 06/08/22] rosuvastatin 20 mg tablet 20 mg PO QAM 06/04/22 [History Confirmed 06/08/22] nitroglycerin 0.4 mg sublingual tablet 0.4 mg sublingual Q5M PRN chest pain 30 days #25 tabs 06/08/22 [Rx] ticagrelor 90 mg tablet (Brilinta) 90 mg PO BID 90 days #180 tabs 06/08/22 [Rx] Exam Physical Exam Vital Signs: Temp Pulse Resp BP Pulse Ox O2 Del Method 98.3 F 58 L 20 198/98 H 99 Room Air 06/08/22 13:43 06/08/22 13:43 06/08/22 13:43 06/08/22 13:43 06/08/22 13:43 06/08/22 13:46 Const General: cooperative, healthy appearing, comfortable and no acute distress Nutritional Appearance: average body habitus Orientation: alert, awake and oriented x3 HEENT Head: normal to inspection Neck Neck: normal visual inspection Chest Chest palpation & inspection: normal inspection of the chest Resp Effort & Inspection: normal respiratory effort Auscultation: clear to auscultation bilaterally Cardio Palpation: normal PMI Rate: regular rate Rhythm: regular rhythm Heart Sounds: S1 normal, S2 normal and no murmurs GI Palpation: soft Skin General: no rashes or lesions noted Neuro General: patient alert, patient awake and patient oriented x3 Cognition: normal cognition Speech: speech normal Extrem General: no clubbing, cyanosis or edema Results Labs Lab results: Intake and Output 06/08/22 06/08/22 06/08/22 07:59 15:59 23:59 Other: Weight 68 kg Patient Weight 06/08/22 23:59 Weight 68 kg A&P - Cardiology (1) Hyperlipidemia: Code(s): E78.5 - Hyperlipidemia, unspecified (2) Hypertension: Code(s): I10 - Essential (primary) hypertension (3) ASHD (arteriosclerotic heart disease): Code(s): I25.10 - Atherosclerotic heart disease of [place] coronary artery without angina pectoris Documented By: Alaina Mcghee DO 06/08/22 1611 Signed By: <Electronically signed by Alaina Mcghee DO> 06/08/22 1634 [facility] Work Phone: 1(100) 904-691804-11-2023 Discharge summary Author Alaina Mcghee [facility] June 08, 2022 4:11pm Note Date/Time June 08, 2022 4:1 1pm [facility] [address] [place] [address] Discharge Summary Signed Patient: Laquita Boggs MR#: [id number] : 1945 Acct:[id number] Age/Sex: 76 / F Adm Date: 3 Loc: Room: [address] [place] [address]: Arsenio Petty MD Copies to: Arsenio Petty MD, FACC DO Alaina Kumari DO~ Providers Date of Discharge: 06/08/22 Discharging Provider: Alaina Mcghee Primary Care Provider: Dipak Lockett Discharge Diagnosis (1) Hyperlipidemia: (2) Hypertension: (3) ASHD (arteriosclerotic heart disease): Final Diagnosis Final Discharge Diagnosis: 1. Two-vessel ASHD 2. Angina pectoris 3. Essential hypertension 4. Hyperlipidemia Summary Hospital Course Hospital course: 76-year-old female presents with outpatient abnormal stress testing, angina pectoris. Outpatient cardiac catheterization performed by Dr. James, revealedsignificant two-vessel ASHD with subtotal occlusion of the proximal circumflex proximal and mid RCA with preserved left ventricular function. Patient underwent ad hoc PCI circumflex with 3 x 18 mm Duarte stent with IVUS guidance, PCI of the entire proximal through mid RCA with 3 x 18, 3 x 12 and 3 x30 mm Javier stents without complications. Patient will require 1 years worth of DAPT, aggressive antihypertensive therapy,discharge later this evening and follow-up with cardiology and 2 weeks. Condition Condition at Discharge: Stable Status at Discharge Functional status at discharge: independent ambulation Overall status at discharge: patient is back to baseline Time Spent with Patient Time spent providing/coordinating discharge services (# min): 15 Surgeries and Procedures Operation Date: 06/08/22 15:15 Left heart catheterization, Gabino Petty MD PCI circumflex x1 JERRICA, GUANACO Mcghee DO IVUS circumflex, Lexi Mcghee, PCI RCA x3 JERRICA, GUANACO Mcghee DO Complications Complications: None Diagnostic Studies Completed and Pending Studies Pending studies at discharge: 06/08/22 16:03 CPR cardiac rehab ed Routine ECG 12 lead ECG Stat 06/09/22 05:00 ECG 12 lead ECG IN AM Troponin I High Sensitivity [CHEM] IN AM Exam Physical Exam Vital Signs: Temp Pulse Resp BP Pulse Ox O2 Del Method 98.3 F 58 L 20 198/98 H 99 Room Air 06/08/22 13:43 06/08/22 13:43 06/08/22 13:43 06/08/22 13:43 06/08/22 13:43 06/08/22 13:46 Discharge Plan Discharge Plan Patient Disposition: Home Diet: Low-Cholesterol Additional Instructions: DISCHARGE INSTRUCTIONS FOR ANGIOPLASTY/CORONARY/PERIPHERAL/STENT IMPLANT FOR ADULT ANTICOAGULATION -Since the greatest risk of a blood clot forming with the stent occurs in the first 2-3 weeks after implantation, you will need to take anticoagulants for at least 1 year ANTICOAGULATION MEDICATION [INSERT MEDICATION NAME: Aspirin 81mg once a day, Ticagrelor (Brilinta) 90mg twice a day STATIN MEDICATION [INSERT MEDICATION NAME: atorvastatin (Lipitor) 80 mg or rosuvastatin (Crestor) 40mg] [Drug-Eluting Stent (JERRICA) duration x 1 yr DO NOT discontinue Brilinta/Aspirin during the first few months regardless of what you are advised by your family doctor or pharmacist, without first calling the remote sensing engineer who implanted the stent. If you require pain relief during this time, please take only ACETAMINOPHEN (TYLENOL)- NO additional aspirin or ibuprofen. DISCHARGE ACTIVITIES ARE FOLLOWS: First week after discharge: -Take it easy at home, no strenuous activity. -Do not lift or pull objects over 10-15 pounds, including children, and groceries for four weeks. If puncture site is at wrist do NOT lift more than three pounds for three days. - May walk up stairs. -May shower. -No excessive scrubbing of the affected site (groin). -May ride in car. -May resume sexual intercourse after 1-2 weeks. -No MRI for 12 days. -May drive in 4-7 days. -If puncture site is at the wrist do not manipulate the wrist for 24 hours, and no soaking wrist for three days. Second Week: -May take a bath -May start walking 3 times a week for 15-20 minutes at a leisurely pace. You should be able to carry on a conversation comfortably without feeling winded. -No strenuous activity as in jogging, running, weight lifting, stair steppers, etc. until the remote sensing engineer approves these activities. Check with the remote sensing engineer on your first follow-up visit. CALL YOUR PHYSICIAN at [phone]: -If bleeding should occur from the catheter insertion site- apply pressure to the site then immediately call us. -Report any fever, redness, drainage, increased swelling, or firmness at the catheter insertion site. Some bruising or slight swelling may be present at the time of discharge. -Should arm or leg become cold, numb, white, or blue, contact the remote sensing engineer immediately. -IF you should experience episodes of angina, e.g. chest discomfort, heaviness, tightness, pressure burning with or without radiation to the neck, jaw, arms or back- use 1 Nitrostat tablet under your tongue every 5-10 minutes and up to three tablets. IF NO RELIEF, CALL 911 or GO TO THE NEAREST EMERGENCY ROOM. -Please notify our office if you have recurrent angina. -[Cardiac Rehab Education Provided. Participation in the Cardiopulmonary Rehabilitation program is recommended. Please call Central Scheduling at [phone] to schedule your appointment.] The attending remote sensing engineer or [facility] nurse clinician should provide you with specific instructions regarding activity, diet, medications, and further follow up for you. Follow the medication instructions provided on your discharge. If the dosages and instructions on this sheet differ from the dosage and instructions on the bottle, follow the instructions on the bottle. [facility] is not responsible for incorrect prescription information provided by thepatient during their visit. Do not stop your medications without consulting your health care provider. Please take the list with you to your next doctor's appointment. Prescriptions: New Brilinta 90 mg tablet 90 mg PO BID 90 Days Qty: 180 3RF nitroglycerin 0.4 mg tablet, sublingual 0.4 mg sublingual Q5M PRN (Reason: chest pain) 30 Days Qty: 25 3RF Rx Instructions: do not exceed 3 doses per episode Continued multivitamin Tablet 1 tab PO DAILY losartan 50 mg tablet 50 mg PO QAM Patient Comments: TAKE 1 TABLET BY MOUTH EVERY DAY FOR metoprolol succinate 50 mg tablet extended release 24 hr 50 mg PO QAM Patient Comments: TAKE 1 TABLET BY MOUTH EVERY DAY rosuvastatin 20 mg tablet 20 mg PO QAM Patient Comments: TAKE 1 TABLET BY MOUTH EVERY DAY omega 4-edo-vrd-fish oil [Fish Oil] 1,000 mg (120 mg-180 mg) Capsule 1 cap PO DAILY Caltrate 600 plus D 600 mg-20 mcg (800 unit) Tablet,Chewable 1 tab PO BID aspirin 81 mg Capsule 81 mg PO DAILY famotidine 20 mg tablet 20 mg PO QAM Patient Comments: TAKE 1 TABLET BY MOUTH TWICE DAILY FOR 2 DAYS THEN THE MORNING OF PROCEDURE diphenhydramine HCl [Allergy (diphenhydramine)] 25 mg capsule 25 mg PO TID Patient Comments: TAKE 1 CAPSULE BY MOUTH 3 TIMES A DAY FOR 2 DAYS THE LAST DOSE BEING THE MORNING OF THE PROCEDURE prednisone 20 mg tablet 20 mg PO QAM Patient Comments: TAKE 1 TABLET BY MOUTH 3 TIMES DAILY FOR 2 DAYS THEN THE MORNING OF PROCEDURE Follow Up: Arsenio Petty MD [Active Staff] - 07/23/22 8:50 am Dipak Lockett DO [Primary Care Provider] - Documented By: Alaina Mcghee DO 06/08/22 160 Signed By: <Electronically signed by Alaina Mcghee DO> 06/08/22 1611 [facility] Work Phone: 1(978) 941-787604-11-2023 Procedure [facility]04-11-2023 Procedure [facility]09-19-2022 Note HISTORY: Bone density screening. COMPARISON: None. PROCEDURE: Imaging of the lumbar spine and bilateral hips was obtained for bone density evaluation. FINDINGS: REGION BMD (g/cm??) YOUNG ADULT T-SCORE AGE-MATCHED Z-SCORE LEFT NECK 0.761 -0.8 1.2 RIGHT NECK 0.716 -1.2 0.8 LUMBAR (L1-L4) 0.888 -1.4 0.9 The mean BMD and corresponding T-score listed above indicate: Osteopenia and places the patient at a mild to moderate increased risk for fracture. There may be a future risk of developing osteoporosis. Recommend follow-up exam in 1 year, sooner as clinically necessary. 10 year fracture risk according to FRAX score of 9.3% for major osteoporotic fracture and 1.6% for hip fracture. Comment: The T-score is the primary focus of the interpretation of a patient???s bone mineral density measurement. The T-score is the number of standard deviations and individual is above or below the mean value for a young female having normal bone mass. The WHO defines osteoporosis based on the T-score value: +1.0 to -0.9 : Normal bone mass -1.0 to -2.5 : Osteopenia and thus may be at future risk of fracture. -2.6 to -5.0 : Osteoporosis and at significantly increased risk of fracture. IMPRESSION: OSTEOPENIA : ONE YEAR FOLLOW-UP RECOMMENDED Report reported and signed by Vinay Heath on 11/16/2021 1315[facility]02-15-2022 Evaluation note* Encounter Date Diagnosis Assessment Notes Treatment Notes Treatment Clinical Notes Mar, Essential (primary) hypertension (ICD-10 - I10) I do not have the ER report but again she states that she did not have lab work or imaging. I recommended we treat her blood pressure, obtain blood work and also obtain head CT and carotid ultrasound. If she sees any change in her symptoms she is to return to the emergency room Mar, Right carotid bruit (ICD-10 - R09.89) Mar, Vision changes (ICD-10 - H53.9) Mar, Unsteady gait (ICD-10 - R26.81) [facility] Other 10-16-2015 History general Narrative - Reported* Type Description Date Medical History Hypercholesterolemia Surgical History L knee arthroscopy 12/13/2014 Surgical History Cataracts - OD/OS 2010 Surgical History Lithotripsy 2003 Surgical History Rhinoplasty 1992 Surgical History Hysterectomy - 1 oophorectomy 1 990 Hospitalization History See Above Surgical Hx [facility] Other chief complaint Narrative - Reported* LAQUITA BOGGS is being seen for a consultation for abn stress test. * 76-year-old white female who came from the family with coronary heart disease including parents andsiblings who was referred to me by Dr. Lockett for evaluation of abnormal nuclear stress test she had done recently showing small mid lateral wall ischemia and mild symptoms of chest pain with exertion but with no ischemic EKG changes. She has been experiencing recently symptoms of atypical chest pain that is not necessarily associated with exertion but rather at rest and sometimes at night. She also has a description of numbness in the left arm. She has no palpitations orthopnea PND or lower extremity edema. She is nondiabetic non-smoker but has hypertension hyperlipidemia on medical therapy.EKG revealed normal sinus rhythm with no abnormalities. All review of system essentially unremarkable outside of this area. She has no weight issues but her blood pressure is out of control. Her cardiac and pulmonary examination and vascular examinations were normal. * Assessment/recommendations: * 1 atypical chest pain with strong risk factor for CAD including premature CAD in family members andhistory of hypertension hyperlipidemia medical therapy, non-smoker with no diabetes but with abnormal nuclear stress test showing small mid lateral ischemia. Based on the above findings patient was advised to pursue further cardiac evaluation with cardiac catheterization for diagnostic and therapeutic purposes. Patient has contrast allergy and therefore should be premedicated. We will add metoprolol succinate 50 mg daily to her present medications. I discussed with the patient and her daughter the cardiac catheterization technique with benefit tensional risks and alternative options of treatment. They both agreed to proceed in this fashion. * 2 hypertension, currently uncontrolled. We will add metoprolol succinate 50 mg daily to present dose of losartan. * 3 hyperlipidemia on rosuvastatin managed by PCP * 4 strong family history of premature CAD [facility] 250 DO Work Phone: Evaluation noteNort [employer] Other Evaluation [facility]No [facility] Other Evaluation noteNo assessment information available [facility] Work Phone: Evaluation note* Diagnosis Onset Date Resolution Status ASHD (arteriosclerotic heart disease) acute Hyperlipidemia acute Hypertension acute [facility] Work Phone: Evaluation note* Diagnosis Atherosclerosis of [place] coronary artery of [place] heart without angina pectoris S/P PTCA (percutaneous transluminal coronary angioplasty) Postsurgical percutaneous transluminal coronary angioplasty status Essential hypertension, benign Mixed hyperlipidemia documented in this encounter [facility] Work Phone: Evaluation note* Diagnosis Coronary artery disease involving [place] heart without angina pectoris, unspecified vessel or lesion type (CMS/HCC)- Primary Cerebrovascular accident (CVA), unspecified mechanism (CMS/HCC) Mixed hyperlipidemia (CMS/HCC) Mixed hyperlipidemia Stented coronary artery Postsurgical percutaneous transluminal coronary angioplasty status Sequela of lacunar infarction Cerebral atrophy (CMS/HCC) Unspecified cerebral degeneration Essential hypertension (CMS/HCC) Unspecified essential hypertension Medication management documented in this encounter [facility] HealthcareEvaluation note* Diagnosis Atherosclerosis of [place] coronary artery of [place] heart without angina pectoris S/P PTCA (percutaneous transluminal coronary angioplasty) Postsurgical percutaneous transluminal coronary angioplasty status Essential hypertension, benign Mixed hyperlipidemia BMI 21.0-21.9, adult Never smoked tobacco documented in this encounter [facility] Work Phone: Evaluation note* Diagnosis Essential hypertension, benign Atherosclerotic heart disease of [place] coronary artery without angina pectoris documented in this encounter [facility] Work Phone: Evaluation note* Diagnosis Essential hypertension, benign BMI 21.0-21.9, adult Never smoked tobacco documented in this encounter [facility] Work Phone: History general Narrative - [facility] [facility] Other Hospital Discharge instructions Additional Instructions DISCHARGE INSTRUCTIONS FOR ANGIOPLASTY/CORONARY/PERIPHERAL/STENT IMPLANT FOR ADULT ANTICOAGULATION -Since the greatest risk of a blood clot forming with the stent occurs in the first 2-3 weeks after implantation, you will need to take anticoagulants for at least 1 year ANTICOAGULATION MEDICATION [INSERT MEDICATION NAME: Aspirin 81mg once a day, Ticagrelor (Brilinta) 90mg twice a day STATIN MEDICATION [INSERT MEDICATION NAME: atorvastatin (Lipitor) 80 mg or rosuvastatin (Crestor) 40mg] [Drug-Eluting Stent (JERRICA) duration x 1 yr DO NOT discontinue Brilinta/Aspirin during the first few months regardless of what you are advised by your family doctor or pharmacist, without first calling the remote sensing engineer who implanted the stent. If you require pain relief during this time, please take only ACETAMINOPHEN (TYLENOL)- NO additional aspirin or ibuprofen. DISCHARGE ACTIVITIES ARE FOLLOWS: First week after discharge: -Take it easy at home, no strenuous activity. -Do not lift or pull objects over 10-15 pounds, including children, and groceries for four weeks. If puncture site is at wrist do NOT lift more than three pounds for three days. - May walk up stairs. -May shower. -No excessive scrubbing of the affected site (groin). -May ride in car. -May resume sexual intercourse after 1-2 weeks. -No MRI for 12 days. -May drive in 4-7 days. -If puncture site is at the wrist do not manipulate the wrist for 24 hours, and no soaking wrist for three days. Second Week: -May take a bath -May start walking 3 times a week for 15-20 minutes at a leisurely pace. You should be able to carry on a conversation comfortably without feeling winded. -No strenuous activity as in jogging, running, weight lifting, stair steppers, etc. until the remote sensing engineer approves these activities. Check with the remote sensing engineer on your first follow-up visit. CALL YOUR PHYSICIAN at [phone]: -If bleeding should occur from the catheter insertion site- apply pressure to the site then immediately call us. -Report any fever, redness, drainage, increased swelling, or firmness at the catheter insertion site. Some bruising or slight swelling may be present at the time of discharge. -Should arm or leg become cold, numb, white, or blue, contact the remote sensing engineer immediately. -IF you should experience episodes of angina, e.g. chest discomfort, heaviness, tightness, pressure burning with or without radiation to the neck, jaw, arms or back- use 1 Nitrostat tablet under your tongue every 5-10 minutes and up to three tablets. IF NO RELIEF, CALL 911 or GO TO THE NEAREST EMERGENCY ROOM. -Please notify our office if you have recurrent angina. -[Cardiac Rehab Education Provided. Participation in the Cardiopulmonary Rehabilitation program is recommended. Please call Central Scheduling at [phone] to schedule your appointment.] The attending remote sensing engineer or [facility] nurse clinician should provide you with specific instructions regarding activity, diet, medications, and further follow up for you. Follow the medication instructions provided on your discharge. If the dosages and instructions on this sheet differ from the dosage and instructions on the bottle, follow the instructions on the bottle. [facility] is not responsible for incorrect prescription information provided by the patient during their visit. Do not stop your medications without consulting your health care provider. Please take the list with you to your next doctor's appointment.[facility] Work Phone: [employer] for referral (narrative)* Consultation (Routine) - Authorized Specialty Diagnoses / Procedures Referred By Contac t Referred To Contact Cardiology Diagnoses Atherosclerosis of [place] coronary artery of [place] heart without angina pectoris S/P PTCA (percutaneous transluminal coronary angioplasty) Essential hypertension, benign Procedures Follow Up In Cardiology Arsenio Petty MD [address] [place] [address] Arsenio Petty MD [address], [place] [address] [place] [id number] Referral ID Status Reason Start Date Expiration Date V isits Requested Visits Authorized [id number] Authorized 02/02/2023 02/02/2024 1 1 [facility] Work Phone: [employer] for referral (narrative)* Consultation (Routine) - Authorized Specialty Diagnoses / Procedures Referred By Contac t Referred To Contact Cardiology Diagnoses Atherosclerosis of [place] coronary artery of [place] heart without angina pectoris Procedures Follow Up In Cardiology Arsenio Petty MD [address] [place] [address] Arsenio Petty MD [address], [address] [address] Referral ID Status Reason Start Date Expiration Date V isits Requested Visits Authorized [id number] Authorized 08/18/2023 08/17/2024 1 1 * Consultation (Routine) - Authorized Specialty Diagnoses / Procedures Referred By Contac t Referred To Contact Cardiology Diagnoses Essential hypertension, benign Procedures Follow Up In Cardiology Arsenio Petty MD [address] [facility] 2, [place] [address] [place] [address], [place] [address] Arsenio Petty MD [address] [place] [address] 2, [place] [address] [place] [id number] Referral ID Status Reason Start Date Expiration Date V isits Requested Visits Authorized [id number] Authorized 08/18/2023 08/17/2024 1 1 T [facility] Work Phone: Reason for referral (narrative)* Consultation (Routine) - Authorized Specialty Diagnoses / Procedures Referred By Riya t Referred To Contact Cardiology Diagnoses Essential hypertension, benign Procedures Follow Up In Cardiology Arsenio Petty MD [address] [place] [address] 2, [address] [place] [address] Arsenio Petty MD [address] [place] [address] [facility] 2, [address] [address] Referral ID Status Reason Start Date Expiration Date V isits Requested Visits Authorized [id number] Authorized 08/23/2023 08/22/2024 1 1 T [facility] Work Phone: Summary Purpose Family History Unknown Family Member Name Dates Details Heart problem: Mother, Fathe r Status:Active Relationship Condition Age at Onset Recorded Date/T ry brother Heart disease Unknown father Heart disease Unknown Cerebrovascular accident (CVA) Unknown Not Specified Heart disease Unknown Unknown Family Member Name Dates Details Heart problem: Mother, Fathe r Status:Active Unknown Family Member Name Dates Details Heart problem: Mother, Fathe r Status:Active Advance Directives Advance Directive Response Recorded Date/ Time Advance Directives No October 9:18am Chief Complaint and Reason for Visit Chief Complaint r94.31 r07.9 i20.8 Chief Complaint r94.31 r07.9 i20.8 R94.31 R07.9 I20.8 Chief Complaint R94.31 R07.9 I20.8 Abnormal Stress, Chest Pain, Hyperlipidema Chief Complaint R94.31 R07.9 I20.8 Abnormal Stress, Chest Pain, Hyperlipidema Abnormal Stress, Chest Pain, Hyperlipidema Reason for Visit ASHD (arteriosclerot ic heart disease) Hyperlipidemia Hypertension Chief Complaint * LAQUITA BOGGS is being seen for f/u cath 06/08. * Patient is in the office after having cardiac catheterization on June 08, 2022 for abnormal nuclear stress test that demonstrated 95% proximal left circumflex stenosis and 80% RCA stenosis and 40% LAD stenosis. She underwent successful PCI of the left circumflex and right coronary artery without co mplications. Ejection fraction was normal. She has been left on dual antiplatelet therapy with aspirin and Brilinta. The patient has strong family history of CAD. She was disappointed having the disease. I discussed with the patient this condition in detail, I pointed out to the patient that her gen etics are the main factor in causing her disease and she has accepted and live with it. We have measures that he can actually keep the disease at bay and prevent recurrences. She is highly motivated and has been very active. She has minor bruising due to the dual antiplatelet therapy which I advised her to live with and protect her skin with coverage. Also has occasional dyspnea that is likely related to Brilinta therapy. She is willing to continue with the medicine without a change to Plavix. Her examination today was unremarkable. Review of system was essentially normal as well. We went over her medications. She simply has symptoms of fatigue which could be related to beta-surendra therapy. I suggested increasing the losartan up to 50 mg daily and reduce metoprolol down to 25 mg daily. * Assessment/recommendations: * 1 three-vessel coronary artery disease with 95% proximal left circumflex and 80% mid RCA stenosis both were treated with drug-eluting stent June 08, 2022. She has 40% LAD lesion that is to be managed medically. Ejection fraction is normal. Addressed with the patient today the findings and the treatment and the long-term therapy. She will remain on dual antiplatelet therapy for 1 year. After thatBrilinta will be discontinued. Lifelong statin therapy with goal LDL less than 70 mg/dL was discussed with the patient. Exercise and healthy living was advocated. * 2 hypertension, currently controlled. Due to fatigue which is related to beta- surendra therapy will increase losartan up to 50 mg daily * 3 hyperlipidemia on rosuvastatin, target LDL 50-70 mg/dL, lipid profile is ordered * 4 strong family history of premature CAD * 5 fatigue likely caused by beta-surendra therapy. We will reduce the metoprolol succinate dose down to 25 mg daily Additional Source Comments REASON FOR VISIT (unrecogniz ed section and content) Reason Comments Blood Pressure Check Hypertension Specialty Diagnoses / Procedures Referred By Riya t Referred To Contact Cardiology Diagnoses Essential hypertension, benign Procedures Follow Up In Cardiology Arsenio Petty MD [address] [place] [address] 2, [address] [address] Arsenio Petty MD [address] [place] [address] 2, [place] [phone] Referral ID Status Reason Start Date Expiration Date V isits Requested Visits Authorized [id number] Authorized 08/23/2023 08/22/2024 1 1 Reason Comments Hypertension Blood Pressure Check Specialty Diagnoses / Procedures Referred By Riya daugherty Referred To Contact Cardiology Diagnoses Essential hypertension, benign Procedures Follow Up In Cardiology Arsenio Petty MD [address] [place] [address] 2, [address] [address] Arsenio Petty MD [address] [place] [address] 2, [place] [id number] Referral ID Status Reason Start Date Expiration Date V isits Requested Visits Authorized [id number] Authorized 08/18/2023 08/17/2024 1 1 Reason Comments Follow-up 6 months Specialty Diagnoses / Procedures Referred By Contleah t Referred To Contact Cardiology Diagnoses Atherosclerosis of [place] coronary artery of [place] heart without angina pectoris S/P PTCA (percutaneous transluminal coronary angioplasty) Essential hypertension, benign Procedures Follow Up In Cardiology Arsenio Petty MD [address] [place] [address] 2, [address] [place] [address] Arsenio Petty MD [address] [facility] 2, [address] [place] [address] Referral ID Status Reason Start Date Expiration Date V isits Requested Visits Authorized [id number] Authorized 02/02/2023 02/02/2024 1 1 Reason Comments 6 month follow up Patient presents to[facility]ec [facility] for a 6 month follow up. Labs are in chart for review. She wanted to let the doctor know that she has been under a lot of stress lately, but doesn't feel that she needs medication. Reason Comments Follow-up 6 mo [facility] FOLLOW UP - last here 08/2018, Pt was at [facility] yesterday. She is dizzy, disorientated, can not focus. She states the symptoms started Tuesday, these symptoms have not gotten worse or better since then., BP was high at ER, 222/100s INFORMATION SOURCE (unrecogn ized section and content) DATE CREATED AUTHOR 05/01/2022 [facility] Specialist DATE CREATED AUTHOR AUTHOR'S ORGANIZ ATION 05/29/2022 [employer] DATE CREATED AUTHOR AUTHOR'S ORGANIZ ATION 06/30/2022 [facility] DATE CREATED AUTHOR AUTHOR'S ORGANIZ ATION 07/01/2022 [facility] [place] DATE CREATED AUTHOR AUTHOR'S ORGANIZ ATION 07/02/2022 [facility] DATE CREATED AUTHOR AUTHOR'S ORGANIZ ATION 09/17/2023 [facility] DATE CREATED AUTHOR AUTHOR'S ORGANIZ ATION 01/09/2024 [facility] Me dical Specialists EPIC Care Teams (unrecognized sec tion and content) Team Status: Active Member Role Status Dates Dipak Lockett DO Primary Care Provider Active Team Status: Inactive Member Role Status Dates Dipak Lockett DO Primary Care Provider, Attending Nabeel anderson Active W Oh Mcghee DO Referring Provider Active Team Status: Inactive Member Role Status Dates Dipak Lockett DO Primary Care Provider Active Arsenio Petty MD Attending Provider Active Semiconductor Development Technician Relationship Specialty Start Date End Date Dipak Lockett DO [address] [place] [address] PCP - General 05/25/22 Semiconductor Development Technician Relationship Specialty Start Date End Date Dipak Lockett DO [address] [place] [address] PCP - ACO Reach 07/22/22 Dipak Lockett DO [address] [place] [address] PCP - General Internal Medicine 09/28/22 Arsenio Petty MD [address] [address] Referring Physician Cardiology 10/04/22 Semiconductor Development Technician Relationship Specialty Start Date End Date Dipak Lockett DO [address] [place] [address] PCP - ACO Reach 07/22/22 Dipak Lockett DO [address] [place] [address] PCP - General Internal Medicine 09/28/22 Arsenio Petty MD 703 [facility] [address] [place] [address] Referring Physician Cardiology 10/04/22 Semiconductor Development Technician Relationship Specialty Start Date End Date Dipak Lockett DO [address] [place] [address] PCP - General 05/25/22 Semiconductor Development Technician Relationship Specialty Start Date End Date Dipak Lockett DO [address] [place] [address] PCP - General 05/25/22 Semiconductor Development Technician Relationship Specialty Start Date End Date Dipak Lockett DO [address] [place] [address] PCP - General 05/25/22 Goals (unrecognized section and content) Goals may be documented in a n alternate section FOR RECORDS PERTAINING TO PATIENTS WHO ARE OR HAVE BEEN ENROLLED IN A CHEMICAL DEPENDENCY/SUBSTANCEABUSE PROGRAM, SOME INFORMATION MAY BE OMITTED. This clinical summary was aggregated from multiple sources. Caution should be exercised in using it in the provision of clinical care. This summary normalizes information from multiple sources, and as a consequence, information in this document may materially change the coding, format and clinical context of patient data. In addition, data may be omitted in some cases. CLINICAL DECISIONS SHOULD BE BASED ON THE PRIMARY CLINICAL RECORDS. [facility] [email or web address] [email or web address]. provides no warranty or guarantee of the accuracy or completeness of information in this document.
[2024-04-13 09:47] LABS: Alanine Aminotransferase 31 U/L (14-59); Albumin Globulin Ratio 1.2; Albumin Level 3.8 g/dL (3.4-5.0); Alkaline Phosphatase 80 U/L (46-116); Anion Gap 10.1; Aspartate Amino Transferase 26 U/L (15-37); BUN Creatinine Ratio 20.9; Bilirubin Total 0.4 mg/dL (0.2-1.0); Calcium 9.8 mg/dL (8.5-10.1); Carbon Dioxide 31.2 mmol/L (21.0-32.0); Chloride 107 mmol/L (98-107); Chol HDL Ratio 2.4; Cholesterol 165 mg/dL (<=200); Estimated GFR (African America >60 (>=60 mL/min/1.73m^2); Estimated GFR (Non-African Ame >60 (>=60 mL/min/1.73m^2); Globulin 3.2 g/dL; Glucose 90 mg/dL (74-106); HDL Cholesterol 68 mg/dL (40-60); Potassium 4.3 mmol/L (3.5-5.1); Sodium 144 mmol/L (136-145); Triglycerides 88 mg/dL (<=150); VLDL CHOLESTEROL 17.6 mg/dL
== END 2024-04-13 09:00 | disposition home or self-care (01) ==
LOC: LAB 09:01
PROVIDERS: PCP Internal Medicine; Visit Provider Nurse Practitioner Adult Health
DX: E78.2 Mixed hyperlipidemia (principal); I10 Essential (primary) hypertension
CPT/HCPCS: 36415; 80053; 80061

== ENCOUNTER 2024-10-09 09:19 | Outpatient (OUT) | payer MEDICARE, OTHER, SELFPAY ==
--- OUTSIDE RECORDS SUMMARY | 2012-02-23 06:27 | XMS_ITS | Continuity of Care Document ---
Author Organization [facility] Address [address] [place] [address] Phone Care Team Providers Care Forensic Psychiatrist Name Role Phone Tyrone ePña Unavailable Unavailable Procedures Procedure Date FLU VACCINE, 3 YRS & >, IM OFFICE/OUTPATIENT VISIT, EST FLU VACCINE, 3 YRS & >, IM Advance Directives Directive Yes / No Effective Date File Name Resuscitation Not Answered N/A N/A Life Support Not Answered N/A N/A Intubation Not Answered N/A N/A Antibiotics Not Answered N/A N/A IV Fluid Support Not Answered N/A N/A Tube Feed Not Answered N/A N/A Other Directive N/A N/A WARNING:The information contained in this section is historical and is provided for information only and does not constitute a legal document or any assurance that the information is still accurate. Please verify the information with the fields of the legal document before using it for clinical purposes. Encounters Encounter Description Practice Location Reason(s) For Visit Diagnoses Date Provider Providers Copied on Encounter OFFICE/OUTPATI ENT VISIT, EST [facility], [address] [place], [place], [id number], [place] tel:[phone] Zaid [facility] Influenza Vaccine Deon Solomon. [address] [place], [place], [id number], [place]. tel:[phone] Family History Family Member Type Diagnosis Age At Onset No Information Immunizations Vaccine Date Status Comments Flu (split) (3 yrs or older) administered Source: New Immunization Record Payers Payer name Insurance type Covered libertarian ID Harmony serrano(s) Marisol HAWK [id number] Social History Type Description Quantity Date Captured Comments Alcohol Use Details Unknown Caffeine Use Details Unknown Tobacco Use Status No Information Smoking Status No Information Sex Female Chief Complaint And Reason For Visit No Information Reason For Referral Reason For Referral No Information History Of Present Illness Encounter Date Complaint History Of Prese nt Illness No Information Functional Status Date Functional Assessmen t No Information Instructions Date Instruction Additional Infor mation No Information Assessments Type Assessment Date No Information Patient Care Teams Name Effective Dates (start - stop) Status Members No Information
--- OUTSIDE RECORDS SUMMARY | 2024-10-09 09:27 | XMS_ITS | Encounter Summary ---
Author Organization [facility] Address [address] [facility] [place] [address] Care Team Providers Care Floor Helper Name Role Phone Dipak Ramesh DO Unavailable [phone] Dipak Ramesh DO Primary Care Provider Arsenio Petty MD Unavailable Hollis Bearden MD Primary Care Provider [phone] Encounter Details Date Type Department Care Team (Late st Contact Info) Description 04/05/2023 Orders Only [facility] [address] [facility] [address] [place] [address] A, Unknown Practice [address] [place], [place] [address] Social History Tobacco Use Types Packs/Day Years Used Date Smoking Tobacco: Never Smokeless Tobacco: Never Alcohol Use Standard Drinks/Week Comments Yes 2 (1 standard drink = 0.6 oz pur e alcohol) Caffeine: 2-3 cups/day coffee AUDIT-C Answer Date Recorded Q1: How often do you have a drink containing alc ohol? Monthly or less 10/04/2022 Q2: How many drinks containi ng alcohol do you have on a typical day when you are drinking? 1 or 2 10/04/2022 Q3: How often do you have si x or more drinks on one occasion? 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 Not on file Not on file documented as of this encounter Plan of Treatment Upcoming Encounters Date Type Department Care Team (Late st Contact Info) Description 10/16/2024 8:30 AM EDT Office Visit [facility] [place] [facility] [address] [place] [phone] Morro Crook NP [address] [place] [address] 03/05/2025 9:05 AM EST Office Visit [facility] [address] [place] [phone] Dodie Swenson, JIG AND FIXTURE REPAIRER-FLUMER [address] [place] [address] documented as of this encounter Procedures Procedure Name Priority Date/Time Associated Diagnosis Comments SCANNED LABS Routine 04/05/2023 1:28 PM EST SCANNED LABS Routine 04/05/2023 1:11 PM EST documented in this encounter Results * SCANNED LABS (04/05/2023 1:28 PM EST) us Unknown Practice A LAB CHG PERFORMABLES Final Re sult * SCANNED LABS (04/05/2023 1:11 PM EST) us Unknown Practice A LAB CHG PERFORMABLES Final Re sult documented in this encounter Visit Diagnoses Not on filedocumented in this encounter Care Teams Floor Helper Relationship Specialty Start Date End Date Dipak Ramesh DO [address] [place] [address] PCP - ACO Reach 07/22/22 Dipak Ramesh DO [address] [place] [address] PCP - General Internal Medicine 09/28/22 09/17/24 Hollis Bearden MD [address] [place] [address] PCP - General Internal Medicine 09/18/24 Arsenio Petty MD 703 [facility] 2, [address] [place] [address] Referring Physician Cardiology 10/04/22 documented as of this encounter
--- OUTSIDE RECORDS SUMMARY | 2024-10-09 09:27 | XMS_ITS | Encounter Summary ---
Author Organization [facility] Address [address] [facility] [place] [address] Care Team Providers Care Certified Neurodiagnostic Technologist Name Role Phone Dipak Ramesh DO Unavailable [phone] Dipak Ramesh DO Primary Care Provider Arsenio Petty MD Unavailable [phone] Hollis Bearden MD Primary Care Provider Encounter Details Date Type Department Care Team (Late st Contact Info) Description 10/01/2022 Orders Only [facility] [address] [facility] [address] [place] [address] A, Unknown Practice [address] [place], [place] [address] Social History Tobacco Use Types Packs/Day Years [...] on file documented as of this encounter Functional Status * Audit-C Score Answer Date of Assessment Author 1 10/04/2022 10:35 AM Yocasta Murrieta RN * Question Answer Date of Assessment Author Q1: How often do you have a drink containing alcohol? Monthly or less 10/04/2022 10:35 AM Yocasta Murrieta RN Q2: How many drinks containing alcohol do you have on a typical day when you are drinking? 1 or 2 10/04/2022 10:35 AM Kelsi Murrieta RN Q3: How often do you have six or more drinks on one occasion? Never 10/04/2022 10:35 AM Yocasta Murrieta RN * Over the past 2 weeks, how often have you been bothered by any of the following problems? Question Answer Date of Assessment Author Little interest or pleasure in doing things Not at all 10/04/2022 10:00 AM Yocasta Murrieta RN Feeling down, depressed, or hopeless Not at all 10/04/2022 10:00 AM Yocasta uMrrieta RN Patient Health Questionnaire -2 Score 0 10/04/2022 10:00 AM Yocasta Murrieta RN documented as of this encounter Plan of Treatment Upcoming Encounters Date Type Department Care Team (Late st Contact Info) Description 10/16/2024 8:30 AM EDT Office Visit [facility] [address] [place] [address] Morro Crook NP [address] [place] [address] 03/05/2025 9:05 AM EST Office Visit [facility] [address] [place] [address] Dodie Swenson, MORENA-SLAG EXPANDER [address] [place] [address] documented as of this encounter Procedures Procedure Name Priority Date/Time Associated Diagnosis Comments SCANNED LABS Routine 10/01/2022 1:33 PM EDT SCANNED LABS Routine 10/01/2022 10:59 AM EDT documented in this encounter Results * SCANNED LABS (10/01/2022 1:33 PM EDT) us Unknown Practice A LAB CHG PERFORMABLES Final Re sult * SCANNED LABS (10/01/2022 10:59 AM EDT) us Unknown Practice A LAB CHG PERFORMABLES Final Re sult documented in this encounter Visit Diagnoses Not on filedocumented in this encounter Care Teams Certified Neurodiagnostic Technologist Relationship Specialty Start Date End Date Dipak Ramesh DO [address] [facility] [address] [place] [address] PCP - ACO Reach 07/22/22 Dipak Ramesh DO [address] [facility] [address] [place] [address] PCP - General Internal Medicine 09/28/22 09/17/24 Hollis Bearden MD [address] [facility] [address] [place] [address] PCP - General Internal Medicine 09/18/24 Arsenio Petty MD 703 [facility] [address], [address] [place] [address] Referring Physician Cardiology 10/04/22 documented as of this encounter
--- OUTSIDE RECORDS SUMMARY | 2024-10-09 09:27 | XMS_ITS | Encounter Summary ---
Author Organization [facility] Address [address] [place] [address] Phone Care Team Providers Care Environmental Services Project Manager Name Role Phone Dipak Ramesh DO Primary Care Provider + [phone] Dipak Ramesh DO Primary Care Provider + [phone] Encounter Details Date Type Department Care Team (Late st Contact Info) Description 04/27/2022 Orders Only [facility] [address] [place] [phone] Scanning, Generic Provider Social History Tobacco Use Types Packs/Day Years Used Date Smoking Tobacco: Never Assessed Comments Unknown Sex and Gender Information Value Date Recorded Sex Assigned at Not on file Legal Sex Female 1:59 PM EST Gender Identity Not on file Sexual Orientation Not on file documented as of this encounter Plan of Treatment Upcoming Encounters Date Type Department Care Team (Late st Contact Info) Description 01/31/2025 9:00 AM EST Office Visit [facility] 703 [facility] [address] [place] [address] Arsenio Petty MD 703 [facility] [address], [address] [place] [address] Scheduled Orders Name Type Priority Associated Diagnoses Orde r Schedule OUTSIDE LAB SCAN Lab Ordered: 04/27/2022 documented as of this encounter Visit Diagnoses Not on filedocumented in this encounter Care Teams Environmental Services Project Manager Relationship Specialty Start Date End Date Dipak Ramesh DO [address] [place] [address] PCP - General 05/25/22 Dipak Ramesh DO [address] [facility] [address] [place] [address] PCP - General 05/21/22 05/24/22 documented as of this encounter
--- OUTSIDE RECORDS SUMMARY | 2024-10-09 09:27 | XMS_ITS | Encounter Summary ---
Author Organization [facility] Address [address] [facility] [place] [address] Care Team Providers Care Wheel Lacer And Truer Name Role Phone Dipak Ramesh DO Unavailable [phone] Dipak Ramesh DO Primary Care Provider Arsenio Petty MD Unavailable Hollis Bearden MD Primary Care Provider Encounter Details Date Type Department Care Team (Late st Contact Info) Description 02/06/2024 Orders Only [facility] [address] [facility] [address] [place] [phone] A, Unknown Practice [address] [place], [place] [address] Social History Tobacco Use Types Packs/Day Years Used Date Smoking Tobacco: Never Smokeless Tobacco: Never Alcohol Use Standard Drinks/Week Comments Yes 2 (1 standard drink = 0.6 oz pur e alcohol) Caffeine: 2-3 cups/day coffee AUDIT-C Answer Date Recorded Q1: How often do you have a drink containing alc ohol? Monthly or less 04/13/2023 Q2: How many drinks containi ng alcohol do you have on a typical day when you are drinking? 1 or 2 04/13/2023 Q3: How often do you have si x or more drinks on one occasion? Never 04/13/2023 PHQ-2 Answer Date Recorded Patient Health Questionnaire-2 Score 0 10/12/2023 Comments Unknown Sex and Gender Information Value [...] 10/16/2024 8:30 AM EDT Office Visit [facility] [address] [place] [address] Morro Crook, ELECTRICAL SOFTWARE ENGINEER [address] [place] [address] 03/05/2025 9:05 AM EST Office Visit [facility] [place] [facility] [address] [place] [phone] Dodie Swenson, BEHAVIORAL SPECIALIST-SAS PROGRAMMER ANALYST [address] [place] [address] documented as of this encounter Procedures Procedure Name Priority Date/Time Associated Diagnosis Comments XR CHEST 1 VIEW Routine 02/05/2024 9:11 AM EST documented in this encounter Results * XR chest 1 view (02/05/2024 9:11 AM EST) Anatomical Region Laterality Modality Chest Radiographic Eliza ging us Unknown Practice A IMG XR PROCEDURES Final Resul t documented in this encounter Visit Diagnoses Not on filedocumented in this encounter Care Teams Wheel Lacer And Truer Relationship Specialty Start Date End Date Dipak Ramesh DO [address] [place] [address] PCP - ACO Reach 07/22/22 Dipak Ramesh DO [address] [place] [address] PCP - General Internal Medicine 09/28/22 09/17/24 Hollis Bearden MD [address] [facility] [address] [place] [address] PCP - General Internal Medicine 09/18/24 Arsenio Petty MD 703 [facility] 2, [address] [place] [address] Referring Physician Cardiology 10/04/22 documented as of this encounter
--- OUTSIDE RECORDS SUMMARY | 2024-10-09 09:27 | XMS_ITS | Clinical Summary ---
Author Organization [facility] Address [address] [place] [address] Phone Care Team Providers Care Infantry Weapons Crewmember Name Role Phone Dipak Ramesh DO Primary Care Provider [phone] Allergies Active Allergy Reactions Criticality Noted Date Comments Povidone-Iodine Unknown 02/01/2023 Iodinated Contrast Media Unknown 02/01/2023 Medications aspirin 81 mg EC tablet Take 1 tablet (81 mg) by mouth once daily. Active calcium carbonate/vitam in D3 (CALTRATE 600 PLUS D ORAL) Take 1 tablet by mouth early in the morning.. Active omega 5-ora-nxa-fish oil (Fish OiL) 1,000 mg (120 mg-180 mg) capsule Take 1 capsule (1,000 mg) by mouth early in the morning.. Active multivitamin tablet Take 1 tablet by mouth once daily. Active nitroglycerin (Nitrostat) 0.[address] 1 tablet (0.4 mg) under the tongue every 5 minutes if needed for chest pain. Active rosuvastatin (Crestor) 20 mg tablet Take 1 tablet (20 mg) by mouth once daily. Active metoprolol succinate XL (Toprol-XL) 25 mg 24 hr tabletIndicatio ns:Essential hypertension, benign Take 1 tablet (25 mg) by mouth once daily. Do not crush or chew. 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 180 tablet 3 08/20/2024 Active Active Problems Problem Noted Date Diagnosed Date BMI 21.0-21.9, adult 08/18/2023 Never smoked tobacco 08/18/2023 Abnormal nuclear stress test 02/01/2023 Atherosclerosis of [place] co ronary artery without angina pectoris 02/01/2023 Essential hypertension, benign 02/01/2023 Familial heart disease 02/01/2023 Hyperlipidemia 02/01/2023 S/P PTCA (percutaneous transluminal coronary ang ioplasty) 02/01/2023 Encounters Date Type Department Care Team Description 08/20/[address] [place] [address] Arsenio Petty MD Atherosclerotic heart disease of [place] coronary artery without angina pectoris; Essential hypertension, benign from Last 3 Months Immunizations Immunization Administration Dates Next Due Tetanus toxoid, adsorbed 03/01/2006 Family History Medical History Relation Name Comments heart problem Father heart problem Mother Relation Name Status Comments Father Mother Social History Tobacco Use Types Packs/Day Years Used Date Smoking Tobacco: Never Smokeless Tobacco: Never Alcohol Use Standard Drinks/Week Comments Yes 0 (1 standard drink = 0.6 oz pur e alcohol) socially Comments Unknown Sex and Gender Information Value Date Recorded Sex Assigned at Not on file Legal Sex Female 1:59 PM EST Gender Identity Not on file Sexual Orientation Not on file Last Filed Vital Signs Vital Sign Reading Time Taken Comments Blood Pressure 138/74 06/11/2024 2:37 PM EDT Pulse 64 06/11/2024 2:37 PM EDT Temperature - - Respiratory Rate - - Oxygen Saturation - - Inhaled Oxygen Concentration - - Weight 63 kg (139 lb) 06/11/2024 2:37 PM EDT Height 172.7 cm (5' 8 ) 06/11/2024 2:37 PM EDT Body Mass Index 21.13 06/11/2024 2:37 PM EDT Plan of Treatment Upcoming Encounters Date Type Department Care Team (Late st Contact Info) Description 01/31/2025 9:00 AM EST Office Visit [address] [place] [phone] Arsenio Petty MD [address] [place] [address] [address], [address] [place] [address] Health Maintenance Due Date Last Done Comments Lipid Panel 1945 Medicare Annual Wellness Visit (AWV) 1945 Hepatitis C Screening 10/22/1965 Pneumococcal Vaccine (1 of 2 - PCV) 10/22/1966 DTaP/Tdap/Td Vaccines (1 - Tdap) 10/22/1969 Zoster Vaccines (1 of 2) 10/22/1997 RSV High Risk: (Elderly (60+) or Population) (1 - 1-dose 75+ series) 10/22/2022 COVID-19 Vaccine ( - season) 2023 Influenza Vaccine (#1) 2024 Bone Density Scan 01/02/2026 01/03/2024, , 11/16/2021, Additional history exists Colorectal Cancer Screening Discontinued FIT-DNA (Cologuard) Discontinued 04/04/2023 Mammogram Discontinued 01/03/2024, 1106/2023, 12/02/2022, Additional history exists CT Colonography Discontinued Colonoscopy Discontinued FIT Discontinued HIB Vaccines Aged Out No longer eligi ble based on patient's age to complete this topic HPV Vaccines Aged Out No longer eligi ble based on patient's age to complete this topic Hepatitis A Vaccines Aged Out No long er eligible based on patient's age to complete this topic Hepatitis B Vaccines Aged Out No long er eligible based on patient's age to complete this topic IPV Vaccines Aged Out No longer eligi ble based on patient's age to complete this topic Meningococcal Vaccine Aged Out No narayan zhang eligible based on patient's age to complete this topic Rotavirus Vaccines Aged Out No longer eligible based on patient's age to complete this topic Sigmoidoscopy Discontinued Insurance [facility] MEDICARE SUPPLEMENT MEDICARE PART A AND B [facility] MEDICARE SUPPLEMENT Member Subscriber Plan / Payer ( fective 2021-Present) Name:Laquita Garcia Relation to Subscriber:Self Name:Laquita Garcia Payer ID:Not on file Type:Not on file Address: [address] [place] [id number] MEDICARE PART A AND B Care Teams Infantry Weapons Crewmember Relationship Specialty Start Date End Date Dipak Ramesh DO [address] [address] PCP - General 05/25/22
--- OUTSIDE RECORDS SUMMARY | 2024-10-09 09:27 | XMS_ITS | Encounter Summary ---
Author Organization [facility] Address [address] [place] [address] Phone Care Team Providers Care Glue Reel Operator Name Role Phone Dipak Ramesh DO Primary Care Provider [phone] Dipak Ramesh DO Primary Care Provider + [phone] Encounter Details Date Type Department Care Team (Late st Contact Info) Description 04/27/2022 Orders Only [facility] [address] [place] [id number] Scanning, Generic Provider Social History Tobacco Use [...] Description 01/31/2025 9:00 AM EST Office Visit [facility] [address] [facility] [address] [place] [address] Arsenio Petty MD [address] [facility] [address] [place] [address] Scheduled Orders Name Type Priority Associated Diagnoses Orde r Schedule OUTSIDE LAB SCAN Lab Ordered: 04/27/2022 documented as of this encounter Visit Diagnoses Not on filedocumented in this encounter Care Teams Glue Reel Operator Relationship Specialty Start Date End Date Dipak Ramesh DO [address] [place] [address] PCP - General 05/25/22 Dipak Ramesh DO [address] [facility] [address] [place] [address] PCP - General 05/21/22 05/24/22 documented as of this encounter
--- OUTSIDE RECORDS SUMMARY | 2024-10-09 09:27 | XMS_ITS | Encounter Summary ---
Author Organization [facility] Address [address] [facility] [[email or web address]] [place] [address] Care Team Providers Care Virtualization Consultant Name Role Phone Dipak Ramesh DO Unavailable [phone] Dipak Ramesh DO Primary Care Provider [phone] Arsenio Petty MD Unavailable Hollis Bearden MD Primary Care Provider [phone] Encounter Details Date Type Department Care Team (Late st Contact Info) Description 09/30/2022 Orders Only [facility] [address] [facility] [place] [phone] Shima Caballero, MEDICAL CASE MANAGER [address] [place] [address] Social History Tobacco Use Types Packs/Day Years Used Date Smoking Tobacco: Never Assessed AUDIT-C Answer Date Recorded Q1: How often [...] Description 10/16/2024 8:30 AM EDT Office [facility] [address] [place] [phone] Morro Crook, MEDICAL CASE MANAGER [address] [place] [address] 03/05/2025 9:05 AM EST Office [facility] [address] [place] [address] Dodie Swenson, HEEL BURNISHER-LUMBER SORTER [address] [place] [address] documented as of this encounter Visit Diagnoses Not on filedocumented in this encounter Care Teams Virtualization Consultant Relationship Specialty Start Date End Date Dipak Ramesh DO [address] [place] [address] PCP - ACO Reach 07/22/22 Dipak Ramesh DO [address] [place] [address] PCP - General Internal Medicine 09/28/22 09/17/24 Hollis Bearden MD [address] [place] [address] PCP - General Internal Medicine 09/18/24 Arsenio Petty MD [address] [place] [address] Referring Physician Cardiology 10/04/22 documented as of this encounter
--- OUTSIDE RECORDS SUMMARY | 2024-10-09 09:27 | XMS_ITS | Clinical Summary ---
Author Organization [facility] Address [address] [place] [address] Care Team Providers Care Analytical Lead Name Role Phone Dipak Ramesh DO Unavailable [phone] Arsenio Petty MD Unavailable [phone] Hollis Bearden MD Primary Care Provider [phone] Allergies Active Allergy Reactions Criticality Noted Date Comments Atorvastatin 09/27/2022 Other Reaction(s): myalgia Iodine 06/08/2022 Other Reaction(s): Unknown Other Reaction(s): Rash Simvastatin 09/27/2022 Other Reaction(s): myalgia Medications metoprolol succinate XL (Toprol-XL) 50 MG 24 hr tablet Take by mouth Daily. Active Brilinta 90 MG tablet Take by mouth 2 (two) times a day. Active nitroglycerin (Nitrostat) 0.[address] under the tongue every 5 (five) minutes if needed. Active losartan (Cozaar) 50 MG tablet Take by mouth 2 (two) times a day 05/28/19 Active MULTIPLE VITAMIN PO Daily. Active omega-3 (Fish Oil) 1000 MG capsule Take 1 capsule by mouth in the morning. Active Calcium Carbonate-Vitamin D (CALTRATE 600+D PO) Daily. Active aspirin (Shaquille Low Dose) 81 MG EC tablet Take by mouth 1 (one) time. Active rosuvastatin (Crestor) 40 MG tabletIndications: Mixed hyperlipidemia TAKE 1 TABLET BY MOUTH AT BEDTIME 90 tablet 3 03/15/19 Active Fluorouracil (Tolak) 4 % creamIndications:A ctinic keratosis Apply 1 application topically Daily For 4 weeks 40 g 07/13/19 25 Active Active Problems Problem Noted Date Diagnosed Date Essential hypertension 04/13/2023 Sequela of lacunar infarction 09/30/2022 CAD (coronary artery disease) 09/21/2022 Cerebral atrophy 09/21/2022 CVA (cerebral vascular accident) 09/21/2022 HTN (hypertension) 09/21/2022 Hyperlipidemia 09/21/2022 Stented coronary artery 09/21/2022 Resolved Problems Problem Noted Date Diagnosed Date Resolved Date Angina of effort 09/30/2022 10/04/2022 Fibrocystic breast changes 09/30/2022 0 10/11/2023 Ischemia 09/30/2022 10/04/2022 Encounters Date Type Department Care Team Description 09/06/2024 11:10 AM EDT Office Visit [facility] [address] [place] [address] Dodie Swenson 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 Actinic keratosis 09/06/2024 Travel 07/12/2024 10:55 AM EDT Office Visit [facility] [address] [place] [address] Dodie Swenson 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 Actinic keratosis; Seborrheic keratosis 07/12/2024 [facility]amboo [facility] [address] [place] [address] Dodie Swenson 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 07/12/2024 Travel from Last 3 Months Immunizations Immunization Administration Dates Next Due Tetanus toxoid, adsorbed 03/01/2006 Family History Medical History Relation Name Comments No Known Problems Daughter Heart disease Father Hyperlipidemia Father Pancreatic cancer Maternal Grandmother Heart disease Mother Hyperlipidemia Mother Breast cancer Other daughter Breast cancer Paternal Grandmother Diabetes Paternal Grandmother Arthritis Sibling Heart disease Sibling No Known Problems Son Relation Name Status Comments Daughter Alive Father Maternal Grandmother Mother Other daughter Paternal Grandmother Sibling Alive 2 brothers, 2 s isters Son Alive Social History Tobacco Use Types Packs/Day Years Used Date Smoking Tobacco: Never Smokeless Tobacco: Never Tobacco Cessation:Counseling Given: Not Answered Alcohol Use Standard Drinks/Week Comments Yes 2 [...] file Not on file Not on file Last Filed Vital Signs Vital Sign Reading Time Taken Comments Blood Pressure 128/76 04/17/2024 8:15 AM EST Pulse 52 04/17/2024 8:15 AM EST Temperature - - Respiratory Rate - - Oxygen Saturation 86% 04/17/2024 8:15 AM EST Inhaled Oxygen Concentration - - Weight 62.1 kg (137 lb) 04/17/2024 8:15 AM EST Height 172.7 cm (5' 8 ) 04/13/2023 9:51 AM EST Body Mass Index 20.83 04/13/2023 9:51 AM EST Plan of Treatment Upcoming Encounters Date Type Department Care Team (Late st Contact Info) Description 10/16/2024 8:30 AM EDT Office Visit [facility] [address] [place] [address] Morro Crook NP [address] [place] [address] 03/05/2025 9:05 AM EST Office Visit [facility] [address] [place] [address] Dodie Swenson, 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 [address] [place] [address] Health Maintenance Due Date Last Done Comments Pneumococcal Vaccine: 65+ Ye ars (1 of 2 - PCV) 10/22/1964 Medicare Annual Wellness (AWV) 10/11/2024 10/12/2023 , 10/26/2021 Influenza Vaccine (#1) 2024 Colorectal Cancer Screening Discontinued FIT-DNA Discontinued 04/04/2023, 02/15/2019 Mammogram Discontinued 01/03/2024, 10/0 06/2022, 11/16/2021, Additional history exists CT Colonography Discontinued Colonoscopy Discontinued FIT Discontinued FOBT Discontinued Sigmoidoscopy Discontinued Procedures Procedure Name Priority Date/Time Associated Diagnosis Comments BI MAMMOGRAM SCREENING TOMOSYNTHESIS BILATERAL Routine 01/03/2024 10:38 AM EST Encounter for screening mammogram for malignant neoplasm of breast LAB COLOGUARD COLON CANCER SCREEN Routine 04/04/2023 10:39 AM EST Colon cancer screening from Last 3 Months or Most Recently Relevant to Health Maintenance Results * Bilateral screening mammogram with tomosynthesis (01/03/2024 10:38 AM EST) Anatomical Region Laterality Modality Breast Bilateral Mammography 01/04/2024 8:42 AM EST Impressions 01/04/2024 8:57 AM EST BI-RADS 2: BENIGN FINDINGS. DENSITY: The breasts are extremely dense, which lowers the sensitivity of mammography Board Certified Radiologists. Accredited by the ACR and FDA. MAMMOGRAPHY IS VERY IMPORTANT TO YOUR HEALTH. THE [place] CANC[employer] SOCIETY GUIDELINES RECOMMEND THAT WOMEN 40 YEARS OF AGE AND OLDER SHOULD HAVE A MAMMOGRAM EVERY YEAR. A REMINDER LETTER WILL BE SENT AT THE APPROPRIATE TIME. ELECTRONICALLY SIGNED BY: DO Bryson Senior 01/04/2024 8:57 AM EST BI MAMMOGRAM SCREENING TOMOSYNTHESIS BILATERAL : 01/03/2024 [...] identified, given differences in technique and positioning. Procedure Note Gabriela Dietz DO - 01/04/2024 BI MAMMOGRAM SCREENING TOMOSYNTHESIS BILATERAL : 01/03/2024 10:29 AM CLINICAL HISTORY: breast cancer screening. COMPARISONS: . TECHNIQUE: Full field [facility] 3D breast tomosynthesis was also performed. CAD analysis was performed and used in the interpretation. FINDINGS: Both breasts remain extremely dense with stable asymmetry. There are no developing masses, suspicious microcalcifications, or areasof architectural distortion identified on today's examination. There is no significant change when compared to the prior examinationsidentified, given differences in technique and positioning. IMPRESSION: BI-RADS 2: BENIGN FINDINGS. DENSITY: The breasts are extremely dense, which lowers the sensitivity ofmammography Board Certified Radiologists. Accredited by the ACR and FDA. MAMMOGRAPHY IS VERY IMPORTANT TO YOUR HEALTH. THE [place] CANCER SOCIETYGUIDELINES RECOMMEND THAT WOMEN 40 YEARS OF AGE AND OLDER SHOULD HAVE AMAMMOGRAM EVERY YEAR. A REMINDER LETTER WILL BE SENT AT THE APPROPRIATE TIME. ELECTRONICALLY SIGNED BY: Gabriela Dietz DO Morro Crook NP IMG BI PROCEDURES Final Resu lt * Cologuard?? colon cancer screening (04/04/2023 10:39 AM EST) NONINV COLON CA DNA+OCC BLD SCRN STL-IMP Negative Negative 04/15/2023 10:10 AM EST Mobile Event Guide (CLIA #:[id number]) Comment: NEGATIVE TEST RESULT. A negative Cologuard result indicates a low likelihood that a colorectal cancer (CRC) or advanced adenoma (adenomatous polyps with more advanced pre-malignant features) is present. The chance that a person with a negative Cologuard test has a colorectal cancer is less than 1 in 1500 (negative predictive value >99.9%) or has an advanced adenoma is less than 5.3% (negative predictive value 94.7%). These data are based on a prospective cross-sectional study of 10,000 individuals at average risk for colorectal cancer who were screened with both Cologuard and colonoscopy. (Dirk Rapp al, N Engl J Med 2014;370(14):9904-8136) The normal value (reference range) for this assay is negative. COLOGUARD RE-SCREENING RECOMMENDATION: Periodic colorectal cancer screening is an important part of preventive healthcare for asymptomatic individuals at average risk for colorectal cancer. Following a negative Cologuard result, the [place] Cancer Society and U.S. Multi-Society Task Force screening guidelines recommend a Cologuard re-screening interval of 3 years. References: [place] Cancer Society Guideline for Colorectal Cancer Screening: https://www.cancer.org/cancer/vreus-dhghfw-pvpits/ivaysitma-nmbqpubmm-vwwgtrk/ac s-rec ommendations.html.; Ghassan CRUZ, Jenn VERDIN, Opal RaoK, Colorectal Cancer Screening: Recommendations for Physicians and Patients from the U.S. Multi-Society Task Force on Colorectal Cancer Screening , Am J Gastroenterology 2017; 112:1526-3625. TEST DESCRIPTION: Composite algorithmic analysis of stool DNA-biomarkers with hemoglobin immunoassay. Quantitative values of individual biomarkers are not reportable and are not associated with individual biomarker result reference ranges. Cologuard is intended for colorectal cancer screening of adults of either sex, 45 years or older, who are at average-risk for colorectal cancer (CRC). Cologuard has been approved for use by the U.S. FDA. The performance of Cologuard was established in a cross sectional study of average-risk adults aged 50-84. Cologuard performance in patients ages 45 to 49 years was estimated by sub-group analysis of near-age groups. Colonoscopies performed for a positive result may find as the most clinically significant lesion: colorectal cancer [4.0%], advanced adenoma (including sessile serrated polyps greater than or equal to 1cm diameter) [20%] or non- advanced adenoma [31%]; or no colorectal neoplasia [45%]. These estimates are derived from a prospective cross-sectional screening study of 10,000 individuals at average risk for colorectal cancer who were screened with both Cologuard and colonoscopy. (Dirk Ayala, N Engl J Med 2014;370(14):7291-3574.) Cologuard may produce a false negative or false positive result (no colorectal cancer or precancerous polyp present at colonoscopy follow up). A negative Cologuard test result does not guarantee the absence of CRC or advanced adenoma (pre-cancer). The current Cologuard screening interval is every 3 years. ([place] Cancer Society and U.S. Multi-Society Task Force). Cologuard performance data in a 10,000 patient pivotal study using colonoscopy as the reference method can be accessed at the following location: www.[employer]/results. Additional description of the Cologuard test process, warnings and precautions can be found at www.cologuard.com. Stool specimen (specimen) 04/04/2023 10:39 AM EST 04/05/2023 2:26 PM EST Morro Crook NP LAB MOLECULAR DIAGNOSTICS OR DERABLES Final Result .[employer] (CLIA #:[id number]) [address] [id number], Mobile Event Guide (CLIA #:[id number]) [address] [id number] from Last 3 Months or Most Recently Relevant to Health Maintenance Insurance MEDICARE [employer] [place] Care Teams Analytical Lead Relationship Specialty Start Date End Date Dipak Ramesh DO [address] [place] [address] PCP - ACO Reach 07/22/22 Hollis Bearden MD [address] [place] [address] PCP - General Internal Medicine 09/18/24 Arsenio Petty MD [address] [facility] [address] [place] [address] Referring Physician Cardiology 10/04/22
[2024-10-09 09:53] LABS: Hematocrit 44.5 % (36.0-48.0); Hemoglobin 14.8 g/dL (12.0-16.0); Immature Granulocytes Abs Auto 0.01 10^3/uL (0.00-0.03); Immature Granulocytes Pct Auto 0.2 % (0.0-0.5); Lymphocytes Absolute Auto 1.0 10^3/uL (1.2-3.8); Mean Corpuscular HGB Conc 33.3 g/dL (29.9-35.2); Mean Corpuscular Hemoglobin 29.7 pg (26.7-34.0); Mean Corpuscular Volume 89.4 fL (81.0-99.0); Platelet Count 177 10^3/uL (150-450); Red Blood Count 4.98 10^6/uL (4.20-5.40); White Blood Count 5.8 10^3/uL (4.0-11.0)
[2024-10-09 10:51] LABS: Alanine Aminotransferase 36 U/L (14-59); Albumin Globulin Ratio 1.2; Albumin Level 4.1 g/dL (3.4-5.0); Alkaline Phosphatase 86 U/L (46-116); Anion Gap 6.5; Aspartate Amino Transferase 23 U/L (15-37); Blood Urea Nitrogen 23.0 mg/dL (7.0-18.0); Calcium 10.3 mg/dL (8.5-10.1); Carbon Dioxide 31.5 mmol/L (21.0-32.0); Chloride 105 mmol/L (98-107); Cholesterol 190 mg/dL (<=200); Estimated GFR (African America >60 (>=60 mL/min/1.73m^2); Estimated GFR (Non-African Ame >60 (>=60 mL/min/1.73m^2); Globulin 3.5 g/dL; Glucose 90 mg/dL (74-106); HDL Cholesterol 69 mg/dL (40-60); Potassium 4.0 mmol/L (3.5-5.1); Sodium 139 mmol/L (136-145); Thyroid Stimulating Hormone 1.022 uIU/mL (0.358-3.740); Total Protein 7.6 g/dL (6.4-8.2); Triglycerides 130 mg/dL (<=150); VLDL CHOLESTEROL 26.0 mg/dL
[2024-10-09 12:01] LABS: Microalbum Creatinine Ratio Ur 8.2 mg/g (0.0-29.9)
== END 2024-10-09 09:20 | disposition home or self-care (01) ==
LOC: LAB 09:25
PROVIDERS: PCP Internal Medicine; Visit Provider Internal Medicine
DX: Z79.899 Other long term (current) drug therapy (principal); I10 Essential (primary) hypertension; E78.2 Mixed hyperlipidemia
CPT/HCPCS: 36415; 80053; 80061; 82043; 82570; 84443; 85025